=== PATIENT | female | born 2000 | race Hispanic/Latino ===

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

== ENCOUNTER 2020-03-12 01:45 | Emergency (ER) | payer OTHER, SELFPAY ==
--- OUTSIDE RECORDS SUMMARY | 2020-03-12 01:47 | XMS REPORT | Continuity of Care Document ---
:2000 Author Organization [facility] t Address [address] [place] [address] [address] [place] [address] Care Team Providers Name Role Phone Crow Hollins MD Attending Clinician Gabriela GOMEZ, A Attending Clinician Unavailable George Whitney Attending Clinician Lesley RN Attending Clinician Unavailable Ultrasound Attending Clinician Unavailable 1, Lab Attending Clinician Unavailable Neil PATHAK Attending Clinician Doctor Unassigned, Name Attending Clinician Unavailable Crow Hollins MD Admitting Clinician Problems This patient has no known problems. Allergies, Adverse Reactions, Alerts This patient has no known allergies or adverse reactions. Medications This patient has no known medications. Procedures This patient has no known procedures. Encounters Start End Encounter Admission Attending Care Care Encounter Source Date/Time Date/Time Type Type Clinicians Facility Department ID 2019-11-05 2019-11-05 Patient Kristi Hollins [facility] [id number] 00:00:00 00:00:00 Secure Msg Crow Bejarano [id number] [place] [id number] Professio [id number] [address] 2019-02-18 2019-02-18 Routine Kristi Hollins [facility] [id number] 13:05:35 13:56:52 Crow Bejarano [id number] Visit [place] [id number] Professio [id number] [address] 2019-01-25 2019-01-25 Patient FAVIO Ochoa [id number] 00:00:00 00:00:00 Secure Msg Mindy Bejarano [id number] [place] [id number] Professio [phone] [address] 2019-01-23 2019-01-23 Emergency Ty [facility] [id number] 20:01:44 21:16:00 Rinkusandra Bejarano [id number] [place] [id number] [place] [id number] 2019-01-23 2019-01-23 Nurse SOLO Sutton [id number] 00:00:00 00:00:00 Triage Jackie HARVEY [id number] [id number] 2019-01-19 2019-01-21 Hospital HollinsKristi [facility] [id number] 14:51:41 12:50:00 Encounter Cam Carlee [id number] [place] [id number] [place] [id number] [facility] 2019-01-21 2019-01-21 Patient Gabriela [facility] [id number] 00:00:00 00:00:00 Secure Msg Mindy Vazquez [place] [id number] [place] [id number] Professio [id number] [address] 2019-01-14 2019-01-14 Routine Kristi Hollins [facility] [id number] 11:18:36 12:23:47 Cam Carlee [id number] Visit [place] [id number] Professio [id number] [address] 2019-01-06 2019-01-06 Station Tender Ultrasound, [facility] [id number] 15:28:11 15:54:20 Visit Ang-Mfm [employer]ISS[employer] INVESTIGATOR [id number] [facility] [id number] MATERNAL [id number] & CHILD [address] [place] [address] 2019-01-04 2019-01-04 Station Tender 1, Adc Lab [facility] [id number] 12:12:21 12:27:21 Visit Carlee [id number] [place] [id number] [place] [id number] [id number] 2019-01-04 2019-01-04 Routine Neil [facility] [id number] 11:01:16 11:46:36 Kathleen Bejarano [id number] Visit [place] [id number] [facility] [id number] [address] 2019-01-04 2019-01-04 Orders Doctor SOLO [id number] 00:00:00 00:00:00 Only Unassigned, CANDICE [id number] [place] [facility] [id number] Results This patient has no known results.
[2020-03-12 02:47] LABS: Urine Blood NEGATIVE (NEG); Urine Glucose NEGATIVE (NEG); Urine Protein NEGATIVE (NEG); Urine Specific Gravity >1.030 (1.005-1.030); Urine pH 6.5 (5.0-7.0)
[2020-03-12 02:48] LABS: Absolute Lymphocytes (CBC) 1.2 K/uL (0.7-4.9); Basophils % 0.5 % (0-1.3); Hematocrit 34.9 % (36.0-45.0); MPV 8.2 fL (7.6-11.3); RBC Red Blood Cell Count 4.23 M/uL (3.86-4.86)
[2020-03-12 03:09] LABS: ALT/SGPT 55 U/L (12-78); AST/SGOT 23 U/L (15-37); Albumin 3.6 g/dL (3.4-5.0); Alkaline Phosphatase 74 U/L (45-117); BUN Blood Urea Nitrogen 11 mg/dL (7-18); Bicarbonate 23 mmol/L (21-32); Bilirubin Direct < 0.1 mg/dL (0-0.2); Bilirubin Total 0.2 mg/dL (0.2-1.0); Glucose Level 101 mg/dL (74-106); Lipase 315 U/L (73-393); Potassium 3.6 mmol/L (3.5-5.1); Protein, Total 7.1 g/dL (6.4-8.2); Sodium Level 138 mmol/L (136-145)
--- NOTE | 2020-03-12 04:25 | ER ---
Nurse's Notes [facility] Name: Mari Hernandez Age: 19 yrs Sex: Female : 2000 Arrival Date: 03/12/2020 Time: 01:51 Bed 20 Private MD: Diagnosis: Abdominal tenderness; state Presentation: 03/12 02:06 Chief complaint: Patient states: she is having right upper quad pain x 4 days and has bb vomited x 3 denies diarrhea, last menstrual cycle was in January pt has not taken a test. Coronavirus screen: At this time, the client does not indicate any symptoms associated with coronavirus-19. Ebola Screen: No symptoms or risks identified at this time. Initial Sepsis Screen: Does the patient meet any 2 criteria? No. Patient's initial sepsis screen is negative. Does the patient have a suspected source of infection? No. Patient's initial sepsis screen is negative. Risk Assessment: Do you want to hurt yourself or someone else? Patient reports no desire to harm self or others. Onset of symptoms was March 08, 2020. 02:06 Method Of Arrival: Ambulatory bb 02:06 Acuity: CHINEDU 3 bb Triage Assessment: 02:09 General: Appears in no apparent distress. uncomfortable, Behavior is calm, cooperative. bb Pain: Complains of pain in right upper quadrant Pain currently is 3 out of 10 on a pain scale. at worst was 10 out of 10 on a pain scale. Pain began 4 days ago. Neuro: Level of Consciousness is awake, alert, obeys commands, Oriented to person, place, time, situation. Cardiovascular: Heart tones present Capillary refill < 3 seconds Patient's skin is warm and dry. Respiratory: Airway is patent Respiratory effort is even, unlabored, Respiratory pattern is regular. GI: Abdomen is round Bowel sounds present X 4 quads. Abd is soft X 4 quads Abdomen is tender to palpation in right upper quadrant. Derm: Skin is pink, warm \T\ dry. Musculoskeletal: Circulation, motion, and sensation intact. 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 - Social history:: Smoking status: Patient denies any tobacco usage or history of. Patient/guardian denies using alcohol, street drugs. Screenin:12 Abuse screen: Denies threats or abuse. Nutritional screening: No deficits noted. bb Tuberculosis screening: No symptoms or risk factors identified. Fall Risk None identified. Assessment: 02:12 Reassessment: No changes from previously documented assessment. see triage assessment. bb 03:15 Reassessment: Patient is alert, oriented x 3, equal unlabored respirations, skin bb warm/dry/pink. Patient states feeling better. 04:37 Reassessment: Patient is alert, oriented x 3, equal unlabored respirations, skin bb warm/dry/pink. pt verbalized understanding of and agrees to plan of care discharge instructions given pt ambulated with steady gait to exit Patient states feeling better. Vital Signs: 02:06 BP 118 / 70; Pulse 102; Resp 14 S; Temp 98.4(O); Pulse Ox 100% on R/A; Weight 62.6 kg bb (R); Height 5 ft. 2 in. (157.48 cm) (R); Pain 3/10; 04:38 BP 109 / 72; Pulse 98; Resp 14 S; Temp 98.6(O); Pulse Ox 100% on R/A; Pain 0/10; bb 02:06 Body Mass Index 25.24 (62.60 kg, 157.48 cm) ED Course: 01:51 Patient arrived in ED. ag3 01:55 Ramirez Enriquez MD is Attending Physician. tw4 02:06 Yi Ceballos, RN is Primary Nurse. bb 02:08 Triage completed. bb 02:09 Arm band placed on Patient placed in an exam room, on a stretcher, on pulse oximetry. bb 02:12 Patient has correct armband on for positive identification. Placed in gown. Bed in low bb position. Call light in reach. Side rails up X 1. Pulse ox on. NIBP on. Warm blanket given. 04:24 Ramirez Enriquez MD is Referral Physician. tw4 04:38 No provider procedures requiring assistance completed. IV discontinued, intact, bb bleeding controlled, No redness/swelling at site. Pressure dressing applied. Administered Medications: No medications were administered Outcome: 04:24 Discharge ordered by MD. tw4 04:38 Discharged to home ambulatory. sapphire 04:38 Condition: stable 04:38 Discharge instructions given to patient, Instructed on discharge instructions, follow up and referral plans. Demonstrated understanding of instructions, follow-up care. 04:39 Patient left the ED. bb Signatures: Yi Ceballos RN RN Ramirez Sena MD MD tw4 Carmel Monahan ag3
--- NOTE | 2020-03-12 04:25 | EDPHYS ---
Physician Documentation [facility] Name: Mari Hernandez Age: 19 yrs Sex: Female : 2000 Arrival Date: 03/12/2020 Time: 01:51 Bed 20 Private MD: ED Physician Ramirez Enriquez HPI: 03/12 02:22 This 19 yrs old Female presents to ER via Ambulatory with complaints of tw4 Abdominal Pain. 02:22 The patient presents with abdominal pain. Onset: The symptoms/episode began/occurred 4 tw4 day(s) ago. The symptoms do not radiate. Associated signs and symptoms: none. The symptoms are described as sharp. Modifying factors: The symptoms are alleviated by nothing, the symptoms are aggravated by nothing. Severity of pain: At its worst the pain was moderate in the emergency department the pain is unchanged. The patient has not experienced similar symptoms in the past. 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 - Social history:: Smoking status: Patient denies any tobacco usage or history of. Patient/guardian denies using alcohol, street drugs. ROS: 02:22 Constitutional: Negative for fever, chills, and weight loss, Eyes: Negative for injury, tw4 pain, redness, and discharge, Cardiovascular: Negative for chest pain, palpitations, and edema, Respiratory: Negative for shortness of breath, cough, wheezing, and pleuritic chest pain, Back: Negative for injury and pain, MS/Extremity: Negative for injury and deformity, Skin: Negative for injury, rash, and discoloration, Neuro: Negative for headache, weakness, numbness, tingling, and seizure. 02:22 Abdomen/GI: Positive for abdominal pain, Negative for nausea and vomiting, nausea, vomiting, and diarrhea, nausea, vomiting, abdominal cramps, anorexia, dysphagia, hematemesis, black/tarry stool, rectal pain, rectal bleeding. Exam: 02:22 Constitutional: This is a well developed, well nourished patient who is awake, alert, tw4 and in no acute distress. Head/Face: Normocephalic, atraumatic. Chest/axilla: Normal chest wall appearance and motion. Nontender with no deformity. No lesions are appreciated. Cardiovascular: Regular rate and rhythm with a normal S1 and S2. No gallops, murmurs, or rubs. Normal PMI, no JVD. No pulse deficits. Respiratory: Lungs have equal breath sounds bilaterally, clear to auscultation and percussion. No rales, rhonchi or wheezes noted. No increased work of breathing, no retractions or nasal flaring. Back: No spinal tenderness. No costovertebral tenderness. Full range of motion. Skin: Warm, dry with normal turgor. Normal color with no rashes, no lesions, and no evidence of cellulitis. MS/ Extremity: Pulses equal, no cyanosis. Neurovascular intact. Full, normal range of motion. Neuro: Awake and alert, GCS 15, oriented to person, place, time, and situation. Cranial nerves II-XII grossly intact. Motor strength 5/5 in all extremities. Sensory grossly intact. Cerebellar exam normal. Normal gait. 02:22 Abdomen/GI: Inspection: abdomen appears normal, Bowel sounds: normal, Palpation: moderate abdominal tenderness, in the right upper quadrant. Vital Signs: 02:06 BP 118 / 70; Pulse 102; Resp 14 S; Temp 98.4(O); Pulse Ox 100% on R/A; Weight 62.6 kg bb (R); Height 5 ft. 2 in. (157.48 cm) (R); Pain 3/10; 04:38 BP 109 / 72; Pulse 98; Resp 14 S; Temp 98.6(O); Pulse Ox 100% on R/A; Pain 0/10; bb 02:06 Body Mass Index 25.24 (62.60 kg, 157.48 cm) bb MDM: 01:56 Patient medically screened. tw4 04:29 Data reviewed: vital signs, nurses notes. Counseling: I had a detailed discussion with tw4 the patient and/or guardian regarding: the historical points, exam findings, and any diagnostic results supporting the discharge/admit diagnosis, lab results. Special discussion: Based on the patient's Hx, exam, and Dx evaluation, there is no indication for emergent surgery or inpatient Tx. It is understood by the patient/guardian that if the Sx's persist or worsen they need to return immediately for re-evaluation. I discussed with the patient/guardian in detail that at this point there is no indication for admission to the hospital. It is understood, however, that if the symptoms persist or worsen the patient needs to return immediately for re-evaluation. 03/12 01:55 Order name: Basic Metabolic Panel; Complete Time: 03:35 03/12 03:35 Interpretation: Normal except: CL 108; CA 8.0. 03/12 01:55 Order name: CBC with Diff; Complete Time: 03:35 03/12 03:35 Interpretation: Normal except: WBC 13.6; HGB 11.5; HCT 34.9; MCV 82.6; BRITTNEY% 86.3; RDW tw4 15.5; LYM% 9.0; NEUT A 11.8. 03/12 01:55 Order name: Hepatic Function; Complete Time: 03:35 03/12 03:35 Interpretation: Normal except: A/G 1.0. 03/12 01:55 Order name: Lipase; Complete Time: 03:35 03/12 03:36 Interpretation: Within normal limits: LIP 315. 03/12 02:43 Order name: Urine Dipstick--Ancillary (enter results); Complete Time: 03:35 03/12 03:36 Interpretation: Normal except: UKET 1+. 03/12 02:43 Order name: Urine --Ancillary (enter results); Complete Time: 03:35 03/12 03:36 Interpretation: Normal except: URINE PREG POS; USPGR >1.030. 03/12 01:55 Order name: IV Saline Lock; Complete Time: 02:41 03/12 01:55 Order name: Labs collected and sent; Complete Time: 02:41 03/12 01:55 Order name: Urine Dipstick-Ancillary (obtain specimen); Complete Time: 02:41 03/12 01:56 Order name: Urine Test (obtain specimen); Complete Time: 02:42 4 Administered Medications: No medications were administered Disposition: 03/12/20 04:24 Discharged to Home. Impression: Abdominal tenderness, state. - Condition is Stable. - Discharge Instructions: Abdominal Pain During , Abdominal Pain, Adult, [id number]. - Medication Reconciliation Form, Thank You Letter, Antibiotic Education, Prescription Opioid Use form. - Follow up: Private Physician; When: Upon discharge from the Emergency Department; Reason: Recheck today's complaints, Continuance of care, Re-evaluation by your physician. Follow up: Ramirez Enriquez MD; When: Upon discharge from the Emergency Department; Reason: Recheck today's complaints, Continuance of care, Re-evaluation by your physician. - Problem is new. - Symptoms have improved. Signatures: Dispatcher [employer] EDOK Yi Ceballos RN RN bb Ramirez Enriquez MD MD tw4 Corrections: (The following items were deleted from the chart) 04:39 04:24 03/12/2020 04:24 Discharged to Home. Impression: Abdominal tenderness; bb state. Condition is Stable. Forms are Medication Reconciliation Form, Thank You Letter, Antibiotic Education, Prescription Opioid Use. Follow up: Private Physician; When: Upon discharge from the Emergency Department; Reason: Recheck today's complaints, Continuance of care, Re-evaluation by your physician. Follow up: Ramirez Enriquez; When: Upon discharge from the Emergency Department; Reason: Recheck today's complaints, Continuance of care, Re-evaluation by your physician. Problem is new. Symptoms have improved. tw4
[2020-03-12 05:18] VITALS: O2SAT 100
[2020-03-12 05:30] VITALS: BP 109/72; TEMP 98.6
== END 2020-03-12 04:39 | disposition home or self-care (01) ==
LOC: ER 01:45
DX: O26.891 Other specified pregnancy related conditions, first trimester (principal); Z3A.00 Weeks of gestation of pregnancy not specified
CPT/HCPCS: 36415; 80048; 80076; 81003; 81025; 83690; 85025; 99283

== ENCOUNTER 2021-05-21 09:01 | Inpatient (IN) | payer BC ==
[2021-05-18 11:32] LABS: Absolute Lymphocytes (CBC) 1.5 K/uL (0.7-4.9); Basophils % 0.4 % (0-1.3); Hematocrit 35.4 % (36.0-45.0); Lymphocytes % 32.3 % (15.3-44.8); MPV 7.5 fL (7.6-11.3); RBC Red Blood Cell Count 4.31 M/uL (3.86-4.86)
[2021-05-18 11:50] LABS: ALT/SGPT 25 U/L (12-78); AST/SGOT 15 U/L (15-37); Albumin 3.5 g/dL (3.4-5.0); Alkaline Phosphatase 71 U/L (45-117); Amylase 97 U/L (25-115); BUN Blood Urea Nitrogen 10 mg/dL (7-18); Bicarbonate 26 mmol/L (21-32); Bilirubin Direct 0.1 mg/dL (0-0.2); Bilirubin Total 0.3 mg/dL (0.2-1.0); Glucose Level 86 mg/dL (74-106); Lipase 741 U/L (73-393); Potassium 3.9 mmol/L (3.5-5.1); Protein, Total 6.8 g/dL (6.4-8.2); Sodium Level 142 mmol/L (136-145)
[2021-05-21] MEDS ORDERED: Ringers Lactate 1,000 ML IV ONE (09:28)
[2021-05-21] MEDS ORDERED: ROCURONIUM 50 MG/5 ML VIAL IV ONE (09:29)
[2021-05-21] MEDS ORDERED: GLYCOPYRROLATE 0.2 MG/ML SYR ONE (09:29)
[2021-05-21] MEDS ORDERED: propofoL 200 MG/20 ML VIAL IV ONE (09:29)
[2021-05-21] MEDS ORDERED: FENTANYL CITR 250 MCG/5 ML ONE (09:30)
[2021-05-21] MEDS ORDERED: MIDAZOLAM HCL 2 MG/2 ML INJ ONE (09:30)
[2021-05-21] MEDS ORDERED: LIDOCAINE 2% MPF 5 ML VIAL ONE (09:30)
[2021-05-21] MEDS ORDERED: ONDANSETRON 4 MG/2 ML VIAL ONE (09:32)
[2021-05-21 09:38] LABS: Specific Gravity 1.025 (1.005-1.030)
[2021-05-21] MEDS ORDERED: CEFOXITIN SODIUM 1 GM/VIAL IVPB SCH (12:00)
--- OUTSIDE RECORDS SUMMARY | 2021-05-21 12:27 | XMS REPORT | Continuity of Care Document ---
:2000 Author Organization [facility] t Address [facility] [address] Beal [address] [place] [id number] Care Team Providers Name Role Phone Silvana Tapia MD Primary Care Physician KENNEDY Attending Clinician Unavailable Kennedy PATHAK Attending Clinician Silvana Tapia MD Attending Clinician Doctor Unassigned, Name Attending Clinician Unavailable Nurse, Women's Health Attending Clinician Unavailable Kaila Butt CRNA Attending Clinician Nathalie Cronin MD Attending Clinician Only, Test Attending Clinician Unavailable SILVANA TAPIA Attending Clinician Unavailable 2, Lab Attending Clinician Unavailable Ultrasound, Mfm Attending Clinician Unavailable Edwin LAWS F Attending Clinician Gabriela GOMEZ, A Attending Clinician Unavailable George Whitney Attending Clinician Lesley GOMEZ Attending Clinician Unavailable Ultrasound Attending Clinician Unavailable Adonis Glasgow Attending Clinician 1, Lab Attending Clinician Unavailable SILVANA TAPIA Admitting Clinician Unavailable Silvana Tapia MD Admitting Clinician Payers Payer Name Policy Type Policy Number Effective Date Expiration Date S bianca BCBS [facility] [id number] 2020 00:00:00 [place] [facility] [id number] 2020 HEALTH 00:00:00 MEDICAID [facility] [id number] 2020 00:00:00 Problems Condition Condition Condition Status Onset Resolution Last Treating Co mments Source Name Details Category Date Date Treatment Clinician Date History of History of Disease Active U nivers COVID-19 COVID-19 6-01 ity of 00:00: [place] [facility] 39 weeks 39 weeks Disease Active Unive rs gestation gestation 6-01 ity of of of 00:00: [place] [facility] Positive Positive Disease Active Unive rs GBS test GBS test 6- ity of 00:00: [address] Anemia, Anemia, Disease Active Univers antepartum antepartum 6- it y of , third , third 00:00: [place] trimester trimester 00 [facility] Obesity Obesity Disease Active Univers (BMI (BMI 4-08 ity of 30-39.9) 30-39.9) 00:00: [address] Supervisio Supervisio Disease Active 2019-06 U nivers n of high n of high 2-16 ity of risk risk 00:00: [place] 00 [facility] in third in third [place] trimester trimester Acute Acute Disease Active Univers urinary urinary 8-22 [place] of [place] [address] [place] [address] Liveborn Liveborn Disease Active Unive rs infant, of , of 8-21 it y of [place] 00:[place] , , 00 Me dical born in born in [facility] hospital by vaginal by vaginal delivery delivery 39 weeks 39 weeks Disease Active Unive rs gestation gestation 8-19 ity of of of 00:00: [place] [address] [place] [address] Encounter Encounter Disease Active Uni vers for for 8-19 ity of planned planned 00:00: [place] induction induction [address] [place] [address] of labor of labor Branch Maternal Maternal Disease Active Unive rs varicella, varicella, 2-25 it y of non-immune non-immune [place] [facility] Seizure Seizure Disease Active Univers disorder disorder 3-29 ity of 00:00: [place] [facility] Threatened Threatened Disease Active U nivers 3-29 ity of 00:00: [address] Unsure of Unsure of Disease Active Uni vers LMP (last LMP (last 3-29 ity of menstrual menstrual 00:00[place] period) as period) as 00 Me dical reason for reason for Br anch ultrasound ultrasound scan scan Allergies, Adverse Reactions, Alerts Allergy Allergy Status Severity Reaction(s) Onset Inactive Treating Comm ents Source Name Type Date Date Clinician NO KNOWN Drug Active Univers ALLERGIE Class ity of S [facility] Social History Social Habit Start Date Stop Date Quantity Comments Source ASSERTION 2020-02-15 [facility] 00:00:00 [facility] Branch Exposure to Not sure [facility]-CoV-2 [facility] (event) Branch Tobacco use and 2020-12-28 2020-12-28 Never used Universit y of exposure 00:00:00 00:00:00 [facility] Alcohol intake 2020-12-28 2020-12-28 Current [facility] 00:00:00 00:00:00 non-drinker of [facility] alcohol Branch (finding) History [facility] 2019-01-19 2019-01-19 5 University o f Financial 00:00:00 00:00:00 [place] [facility] History [facility] Food 2019-01-19 2019-01-19 1 Univers ity of Worry 00:00:00 00:00:00 [place] [facility] History [facility] Food 2019-01-19 2019-01-19 1 Univers ity of Scarcity 00:00:00 00:00:00 [place] [facility] History [facility] 2019-01-19 2019-01-19 1 University o f Transport Med 00:00:00 00:00:00 [place] Medic al Branch History [facility] 2019-01-19 2019-01-19 2 University o f Transport Non-Med 00:00:00 00:00:00 [place] [facility] edical Branch Sex Assigned At [birth year] Universit y of 00:00:00 00:00:00 [facility] Branch Smoking Status Start Date Stop Date Source Never smoker [facility] Medications Ordered Filled Start Stop Current Ordering Indication Dosage Frequency Signature Comments Components Source Medication Medication Date Date Medication? Clinician (SIG) Name Name medroxyPROG 2020- No [id number] 150mg Univers ESTERone 11-30 ity of (DEPO-PROVE 17:45: 17:00 [place] RA) syringe 00 :00 Medical 150 mg Branch medroxyPROG 2020- No [id number] 150mg 150 mg, Univers ESTERone 11-30 Intramuscu ity of (DEPO-PROVE 17:45: 17:00 lar, ONCE, [place] RA) syringe 00 :00 1 dose, Medic al 150 mg Shreya 11/30/20 Branch at 1245, Routine rho(D) 2020-0 Yes 300ug 300 mcg, Univer s immune 11-01 Intramuscu ity of globulin 00:02: lar, ONCE, [place] as (RHOGAM) 48 For 1 Medical syringe 300 dose, Branch mcg Conditiona l, Routine witch Winsome 0 Yes Topical, Un ghislaine (TUCKS) 50 6-02 Q4HPRN, ity of % topical 00:02: Starting [place] pad 43 e 10/31/20 Medical at 1902, Branch Until Discontinu ed, Routine, rectal/hem orrhoidal pain simethicone 0 Yes 160mg 160 mg, Un ghislaine (GAS RELIEF 11-01 Oral, ity of (SIMETHICON 00:02: PC+HSPRN, [place] E)) 43 Starting Medical chewable e 10/31/20 Branc h tablet 160 at 1902, mg Until Discontinu ed, Routine, Gas HYDROcodone 2020-0 Yes 1{tbl} 1 tablet, Univers -acetaminop 11-01 Oral, ity of hen (NORCO 00:02: Q6HPRN, [place] 5) 5-325 mg 42 Starting Medi demarcus tablet 1 Fri10/31/20 Branc h tablet at 1902, Until Discontinu ed, Routine, Pain (scale 7-10) ibuprofen 2020-0 Yes 600mg 600 mg, [facility] ers (IBU) 11-01 Oral, ity of tablet 600 00:02: Q6HPRN, [place] mg 42 Starting Medical 10/31/20 Branch at 1902, Until Discontinu ed, Routine, Pain (scale 4-6) acetaminoph 0 Yes 650mg 650 mg, Un ghislaine en 11-01 Oral, ity of (TYLENOL) 00:02: Q6HPRN, [place] tablet 650 42 Starting Medic al mg e 10/31/20 Branch at 1902, Until Discontinu ed, Routine, Pain (scale 1-3) diphenhydrA 0 Yes 25mg 25 mg, Univ ers MINE 6-02 Oral, ity of (BENADRYL) 00:02: Q6HPRN, [place] tablet 25 42 Starting Medica l mg Fri10/31/20 Branch at 1902, Until Discontinu ed, Routine, Sleep, Itching ondansetron Yes 4mg 4 mg, Slow Univers (ZOFRAN 6 IV Push, ity of (PF)) 00:02: Q8HPRN, [place] injection 4 42 Starting Medi demarcus mg Fri10/31/20 Branch at 1902, Until Discontinu ed, Routine, Nausea and Vomiting (N/V) magnesium Yes 30mL 30 mL, Univer s hydroxide 11-01 Oral, ity of (MILK OF 00:02: QDAILYPRN, [place] MAGNESIA) 42 Starting Medica l 400 mg/5 mL Fri10/31/20 Br anch suspension at 1901, 30 mL Until Discontinu ed, Routine, Constipati on benzocaine- Yes Topical, Un ghislaine menthol 11-01 PRN, ity of (DERMOPLAST 00:02: [place] 20-0.5 % 42 Fri10/31/20 Med ical topical at 1901, Branch spray Until Discontinu ed, Routine, Perineum discomfort Yes [id number] 1{tbl} Take 1 Univers vitamin 6-02 102 tablet by ity of w/FA tablet 00:00: mouth [place] 00 daily. Medical Branch docusate Yes [id number] 240mg Take 1 Univers calcium 240 6-02 102 capsule by it y of mg capsule 00:00: mouth [place] 00 daily as Medical needed for Branch Constipati on. ferrous Yes [id number] 325mg Take 1 Univers sulfate 325 6-02 102 tablet by ity of mg (65 mg 00:00: mouth 2 [place] iron) 00 (two) Medical tablet times Branch daily. ibuprofen Yes [id number] 600mg Take 1 Univers 600 mg 6-02 102 tablet by ity of tablet 00:00: mouth [place] 00 every 6 Medical (six) Branch hours as needed (Pain). Take with food or milk. Yes [id number] 1{tbl} Take 1 Univers vitamin 6-02 102 tablet by ity of w/FA tablet 00:00: mouth [place] 00 daily. Medical Branch docusate Yes [id number] 240mg Take 1 Univers calcium 240 6-02 102 capsule by it y of mg capsule 00:00: mouth [place] 00 daily as Medical needed for Branch Constipati on. ferrous Yes [id number] 325mg Take 1 Univers sulfate 325 6-02 102 tablet by ity of mg (65 mg 00:00: mouth 2 [place] iron) 00 (two) Medical tablet times Branch daily. ibuprofen Yes [id number] 600mg Take 1 Univers 600 mg 6-02 102 tablet by ity of tablet 00:00: mouth [place] 00 every 6 Medical (six) Branch hours as needed (Pain). Take with food or milk. Yes [id number] 1{tbl} Take 1 Univers vitamin 6-02 102 tablet by ity of w/FA tablet 00:00: mouth [place] 00 daily. Medical Branch docusate Yes [id number] 240mg Take 1 Univers calcium 240 6-02 102 capsule by it y of mg capsule 00:00: mouth once [place] 00 daily as Medical needed for Branch Constipati on. ferrous Yes [id number] 325mg Take 1 Univers sulfate 325 6-02 102 tablet by ity of mg (65 mg 00:00: mouth 2 [place] iron) 00 (two) Medical tablet times Branch daily. ibuprofen Yes [id number] 600mg Take 1 Univers 600 mg 6-02 102 tablet by ity of tablet 00:00: mouth [place] 00 every 6 Medical (six) Branch hours as needed (Pain). Take with food or milk. Yes [id number] 1{tbl} Take 1 Univers vitamin 6-02 102 tablet by ity of w/FA tablet 00:00: mouth [place] 00 daily. Medical Branch docusate Yes [id number] 240mg Take 1 Univers calcium 240 6-02 102 capsule by it y of mg capsule 00:00: mouth [place] 00 daily as Medical needed for Branch Constipati on. ferrous Yes [id number] 325mg Take 1 Univers sulfate 325 6-02 102 tablet by ity of mg (65 mg 00:00: mouth 2 [place] iron) 00 (two) Medical tablet times Branch daily. ibuprofen Yes [id number] 600mg Take 1 Univers 600 mg 6-02 102 tablet by ity of tablet 00:00: mouth [place] 00 every 6 Medical (six) Branch hours as needed (Pain). Take with food or milk. Yes [id number] 1{tbl} Take 1 Univers vitamin 6-02 102 tablet by ity of w/FA tablet 00:00: mouth [place] 00 daily. Medical Branch docusate Yes [id number] 240mg Take 1 Univers calcium 240 6-02 102 capsule by it y of mg capsule 00:00: mouth [place] 00 daily as Medical needed for Branch Constipati on. ferrous Yes [id number] 325mg Take 1 Univers sulfate 325 6-02 102 tablet by ity of mg (65 mg 00:00: mouth 2 [place] iron) 00 (two) Medical tablet times Branch daily. ibuprofen Yes [id number] 600mg Take 1 Univers 600 mg 6-02 102 tablet by ity of tablet 00:00: mouth [place] 00 every 6 Medical (six) Branch hours as needed (Pain). Take with food or milk. Yes [id number] 1{tbl} Take 1 Univers vitamin 6-02 102 tablet by ity of w/FA tablet 00:00: mouth [place] 00 daily. Medical Branch docusate Yes [id number] 240mg Take 1 Univers calcium 240 6-02 102 capsule by it y of mg capsule 00:00: mouth once [place] 00 daily as Medical needed for Branch Constipati on. ferrous Yes [id number] 325mg Take 1 Univers sulfate 325 6-02 102 tablet by ity of mg (65 mg 00:00: mouth 2 [place] iron) 00 (two) Medical tablet times Branch daily. ibuprofen Yes [id number] 600mg Take 1 Univers 600 mg 6-02 102 tablet by ity of tablet 00:00: mouth [place] 00 every 6 Medical (six) Branch hours as needed (Pain). Take with food or milk. Yes [id number] 1{tbl} Take 1 Univers vitamin 6-02 102 tablet by ity of w/FA tablet 00:00: mouth [place] 00 daily. Medical Branch docusate Yes [id number] 240mg Take 1 Univers calcium 240 6-02 102 capsule by it y of mg capsule 00:00: mouth once [place] 00 daily as Medical needed for Branch Constipati on. ferrous Yes [id number] 325mg Take 1 Univers sulfate 325 6-02 102 tablet by ity of mg (65 mg 00:00: mouth 2 [place] iron) 00 (two) Medical tablet times Branch daily. ibuprofen Yes [id number] 600mg Take 1 Univers 600 mg 6-02 102 tablet by ity of tablet 00:00: mouth [place] 00 every 6 Medical (six) Branch hours as needed (Pain). Take with food or milk. Yes [id number] 1{tbl} Take 1 Univers vitamin 6-02 102 tablet by ity of w/FA tablet 00:00: mouth [place] 00 daily. Medical Branch docusate Yes [id number] 240mg Take 1 Univers calcium 240 6-02 102 capsule by it y of mg capsule 00:00: mouth once [place] 00 daily as Medical needed for Branch Constipati on. ferrous Yes [id number] 325mg Take 1 Univers sulfate 325 6-02 102 tablet by ity of mg (65 mg 00:00: mouth 2 [place] iron) 00 (two) Medical tablet times Branch daily. ibuprofen Yes [id number] 600mg Take 1 Univers 600 mg 6-02 102 tablet by ity of tablet 00:00: mouth [place] 00 every 6 Medical (six) Branch hours as needed (Pain). Take with food or milk. Yes [id number] 1{tbl} Take 1 Univers vitamin 6-02 102 tablet by ity of w/FA tablet 00:00: mouth [place] 00 daily. Medical Branch docusate Yes [id number] 240mg Take 1 Univers calcium 240 6-02 102 capsule by it y of mg capsule 00:00: mouth once [place] 00 daily as Medical needed for Branch Constipati on. ferrous Yes [id number] 325mg Take 1 Univers sulfate 325 6-02 102 tablet by ity of mg (65 mg 00:00: mouth 2 [place] iron) 00 (two) Medical tablet times Branch daily. ibuprofen Yes [id number] 600mg Take 1 Univers 600 mg 6-02 102 tablet by ity of tablet 00:00: mouth [place] 00 every 6 Medical (six) Branch hours as needed (Pain). Take with food or milk. Yes [id number] 1{tbl} Take 1 Univers vitamin 6-02 102 tablet by ity of w/FA tablet 00:00: mouth [place] 00 daily. Medical Branch docusate Yes [id number] 240mg Take 1 Univers calcium 240 6-02 102 capsule by it y of mg capsule 00:00: mouth once [place] 00 daily as Medical needed for Branch Constipati on. ferrous Yes [id number] 325mg Take 1 Univers sulfate 325 6-02 102 tablet by ity of mg (65 mg 00:00: mouth 2 [place] iron) 00 (two) Medical tablet times Branch daily. ibuprofen Yes [id number] 600mg Take 1 Univers 600 mg 6-02 102 tablet by ity of tablet 00:00: mouth [place] 00 every 6 Medical (six) Branch hours as needed (Pain). Take with food or milk. FENTanyl 2 2020- No Intra-op Un ghislaine mcg/mL + 10-31 ity of bupivacaine 19:33: 21:50 [place] 0.125% in 00 :19 Medical NS 250 mL Branch epidural bag FENTanyl 2 2020- No Intra-op Un ghislaine mcg/mL + 10-31 ity of bupivacaine 19:33: 21:50 [place] 0.125% in 00 :19 Medical NS 250 mL Branch epidural bag lidocaine-e 2020- No Intraderma Univers pinephrine 10-31 l, ONCE ity o f (XYLOCAINE 19:30: 21:50 INTRA [place] W/EPINEPHRI 00 :19 PROCEDURE, Ct dical NE) 1.5 Starting Branch %-1:200,000 10/31/20 injection at 1430, Until 10/31/20 at 1650, Routine, Intra-op D5W-LR IV 2020- No 1000mL at 125 Uni vers infusion 10-31 mL/hr, IV ity o f 1,000 mL 09:45: 00:02 Infusion, [place] as 00 :48 CONTINUOUS Medical , Starting Branch 10/31/20 at 0445, Until 10/31/20 at 1902, Routine FENTanyl PF 2020- No 100ug 100 mcg, Univers (SUBLIMAZE 10-31 Slow IV ity o f (PF)) 09:41: 00:02 Push, [place] injection 25 :48 Q1HPRN, Medical 100 mcg Starting Branch 10/31/20 at 0441, Until 10/31/20 at 1902, Routine, contractio n pain without an epidural and SVE < 8 cm and Cat I strip LR 1000 mL 2020- No 2mU/min 2-40 Uni vers + oxytocin 10-31 ruben-unit it y of 20 units IV 09:41: 00:02 s/min [place] Solution 25 :48 (6-120 Medical mL/hr), IV Branch Infusion, TITRATE, Oxytocin Induction / Augmentati on of Labor, Starting e 10/31/20 at 0441
In fuse IV through a controlled infusion pump at a proximal port on the peripheral IV line.&nbsp ; Sta rt at 2 ruben-unit s/min and increase by 2 ruben-unit s/min every 20 minutes according to oxytocin policy 7.11.52.&n bsp; Going over 20 ruben-unit s/min requires faculty approval.& nbsp;&nbsp ;Max 40 ruben-unit s/min.
ferrous Yes Anemia of 325mg Take 1 Un ghislaine sulfate 3-10 mother in tablet by it y of (IRON, 00:00: , mouth [place] FERROUS 00 antepartum daily. Medi demarcus SULFATE,) Branch 325 mg (65 mg iron) tablet ferrous Yes Anemia of 325mg Take 1 Un ghislaine sulfate 3-10 mother in tablet by it y of (IRON, 00:00: , mouth [place] FERROUS 00 antepartum daily. Medi demarcus SULFATE,) Branch 325 mg (65 mg iron) tablet ferrous Yes 325mg Take 1 Un ghislaine sulfate 3-10 tablet by ity of (IRON, 00:00: mouth [place] FERROUS 00 daily. Medical SULFATE,) Branch 325 mg (65 mg iron) tablet ferrous Yes [id number] 325mg Take 1 Un ghislaine sulfate 3-10 tablet by ity of (IRON, 00:00: mouth [place] FERROUS 00 daily. Medical SULFATE,) Branch 325 mg (65 mg iron) tablet ferrous Yes [id number] 325mg Take 1 Un ghislaine sulfate 3-10 tablet by ity of (IRON, 00:00: mouth [place] FERROUS 00 daily. Medical SULFATE,) Branch 325 mg (65 mg iron) tablet ferrous Yes [id number] 325mg Take 1 Un ghislaine sulfate 3-10 tablet by ity of (IRON, 00:00: mouth [place] FERROUS 00 daily. Medical SULFATE,) Branch 325 mg (65 mg iron) tablet ferrous Yes [id number] 325mg Take 1 Un ghislaine sulfate 3-10 tablet by ity of (IRON, 00:00: mouth [place] FERROUS 00 daily. Medical SULFATE,) Branch 325 mg (65 mg iron) tablet ferrous Yes [id number] 325mg Take 1 Un ghislaine sulfate 3-10 tablet by ity of (IRON, 00:00: mouth [place] FERROUS 00 daily. Medical SULFATE,) Branch 325 mg (65 mg iron) tablet ferrous Yes [id number] 325mg Take 1 Un ghislaine sulfate 3-10 tablet by ity of (IRON, 00:00: mouth [place] FERROUS 00 daily. Medical SULFATE,) Branch 325 mg (65 mg iron) tablet ferrous Yes [id number] 325mg Take 1 Un ghislaine sulfate 3-10 tablet by ity of (IRON, 00:00: mouth [place] FERROUS 00 daily. Medical SULFATE,) Branch 325 mg (65 mg iron) tablet ferrous Yes [id number] 325mg Take 1 Un ghislaine sulfate 3-10 tablet by ity of (IRON, 00:00: mouth [place] FERROUS 00 daily. Medical SULFATE,) Branch 325 mg (65 mg iron) tablet ferrous Yes [id number] 325mg Take 1 Un ghislaine sulfate 3-10 tablet by ity of (IRON, 00:00: mouth [place] FERROUS 00 daily. Medical SULFATE,) Branch 325 mg (65 mg iron) tablet ferrous Yes [id number] 325mg Take 1 Un ghislaine sulfate 3-10 tablet by ity of (IRON, 00:00: mouth [place] FERROUS 00 daily. Medical SULFATE,) Branch 325 mg (65 mg iron) tablet ferrous Yes [id number] 325mg Take 1 Un ghislaine sulfate 3-10 tablet by ity of (IRON, 00:00: mouth [place] FERROUS 00 daily. Medical SULFATE,) Branch 325 mg (65 mg iron) tablet ferrous Yes [id number] 325mg Take 1 Un ghislaine sulfate 3-10 tablet by ity of (IRON, 00:00: mouth [place] FERROUS 00 daily. Medical SULFATE,) Branch 325 mg (65 mg iron) tablet ferrous Yes [id number] 325mg Take 1 Un ghislaine sulfate 3-10 tablet by ity of (IRON, 00:00: mouth [place] FERROUS 00 daily. Medical SULFATE,) Branch 325 mg (65 mg iron) tablet ferrous 2020- No [id number] 325mg Take 1 U nivers sulfate 3-10 - tablet by ity of (IRON, 00:00: 00:00 mouth [place] FERROUS 00 :00 daily. Medical SULFATE,) Branch 325 mg (65 mg iron) tablet azithromyci 2019-06- No [id number] 1000mg Take 2 Univers n 500 mg 0-22 10-24 tablets by ity of tablet 00:00: 04:59 mouth [place] 00 :00 daily for Medical 1 day. Branch azithromyci 2019-06- No [id number] 1000mg Take 2 Univers n 500 mg 0-22 10-24 tablets by ity of tablet 00:00: 04:59 mouth [place] 00 :00 daily for Medical 1 day. Branch medroxyPROG 2018- No 150mg Univ ers ESTERone 02-18 ity of (DEPO-PROVE 22:45: 18:50 [place] RA) 00 :00 Medical injection Branch 150 mg medroxyPROG 2018- No 150mg 150 mg, U nivers ESTERone 02-18 Intramuscu ity of (DEPO-PROVE 22:45: 18:50 lar, ONCE, [place] RA) 00 :00 1 dose, Medical injection Shreya Branch 150 mg 02/18/19 at 1745, Routine cefTRIAXone 2018- No 1000mg 1,000 mg, Univers (ROCEPHIN) 01-24 08-25 Intravenou it y of injection 02:30: 01:36 s, ONCE, 1 [place] 1,000 mg 00 :00 dose, Sat Medica l 01/23/19 at Branch 2130, DONNA
Fa culty member approving Restricted medication : KM ESCALERA III George
Reaso n for Anti-Infec tive: Empiric Therapy for Suspected Infection< br>Empiric Therapy Site: Abdominal< br>Duratio n of therapy: 72 hours NaCl 0.9% 2019- No 1000mL at 999 Uni vers (NS) bolus 01-24 08-25 mL/hr, ity of infusion 02:30: 02:08 1,000 mL, Shaun as 1,000 mL 00 :00 IV Medical Infusion, Branch ONCE, 1 dose, 01/23/19 at 2130, STAT Nitrofurant 2018- No [id number] 100mg Take 1 Univers oin&Nit. 01-23 capsule by ity of Macrocryst 00:00: 04:59 mouth 2 [place] as (MACROBID) 00 :00 (two) Medical 100 mg times Branch capsule daily for 10 days. Nitrofurant 2018- No [id number] 100mg Take 1 Univers oin&Nit. 01-23 capsule by ity of Macrocryst 00:00: 04:59 mouth 2 [place] (MACROBID) 00 :00 (two) Medical 100 mg times Branch capsule daily for 10 days. ibuprofen 2019- No [id number] 600mg Take 1 Univers 600 mg 01-23-30 tablet by ity of tablet 00:00: 04:59 mouth 4 [place] 00 :00 (four) Medical times Branch daily as needed for Pain (scale 4-6) for up to 5 days. acetaminoph 2019- No [id number] 975mg Take 3 Univers en 01-23-30 tablets by ity of (TYLENOL) 00:00: 04:59 mouth 4 [place] 325 mg 00 :00 (four) Medical tablet times Branch daily for 5 days. This is the maximum safe dose for a healthy adult. ibuprofen 2019- No [id number] 600mg Take 1 Univers 600 mg 01-23-30 tablet by ity of tablet 00:00: 04:59 mouth 4 [place] 00 :00 (four) Medical times Branch daily as needed for Pain (scale 4-6) for up to 5 days. acetaminoph 2019- 2019- No [id number] 975mg Take 3 Univers en 8-24 08-30 tablets by ity of (TYLENOL) 00:00: 04:59 mouth 4 [place] 325 mg 00 :00 (four) Medical tablet times Branch daily for 5 days. This is the maximum safe dose for a healthy adult. 2019- Yes Liveborn 1{tbl} Take 1 U nivers vitamin 8-22 , of tablet by i ty of w/FA tablet 00:00: watson mouth [place] 00 , daily. Medical born in [facility] by vaginal delivery 2019-0 Yes Liveborn 1{tbl} Take 1 U nivers vitamin 8-22 infant, of tablet by i ty of w/FA tablet 00:00: watson mouth [place] 00 , daily. Medical born in [facility] by vaginal delivery 2019- Yes [id number] 1{tbl} Take 1 Univers vitamin 8-22 102 tablet by ity of w/FA tablet 00:00: mouth [place] 00 daily. Medical Branch docusate Yes [id number] 240mg Take 1 Univers calcium 240 8-22 102 capsule by it y of mg capsule 00:00: mouth once [place] 00 daily as Medical needed for Branch Constipati on. ferrous 2018- Yes [id number] 325mg Take 1 Univers sulfate 325 8-22 102 tablet by ity of mg (65 mg 00:00: mouth 2 [place] iron) 00 (two) Medical tablet times Branch daily. ibuprofen 2018- Yes [id number] 600mg Take 1 Univers 600 mg 8-22 102 tablet by ity of tablet 00:00: mouth [place] 00 every 6 Medical (six) Branch hours as needed for Pain (scale 1-3) or Pain (scale 4-6) (Pain). Take with food or milk. 2019- Yes [id number] 1{tbl} Take 1 Univers vitamin 8-22 102 tablet by ity of w/FA tablet 00:00: mouth [place] 00 daily. Medical Branch docusate Yes [id number] 240mg Take 1 Univers calcium 240 8-22 102 capsule by it y of mg capsule 00:00: mouth once [place] 00 daily as Medical needed for Branch Constipati on. ferrous 2018- Yes [id number] 325mg Take 1 Univers sulfate 325 8-22 102 tablet by ity of mg (65 mg 00:00: mouth 2 [place] iron) 00 (two) Medical tablet times Branch daily. ibuprofen 2019-0 Yes [id number] 600mg Take 1 Univers 600 mg 8-22 102 tablet by ity of tablet 00:00: mouth [place] 00 every 6 Medical (six) Branch hours as needed for Pain (scale 1-3) or Pain (scale 4-6) (Pain). Take with food or milk. Yes [id number] 1{tbl} Take 1 Univers vitamin 8-22 102 tablet by ity of w/FA tablet 00:00: mouth [place] 00 daily. Medical Branch docusate Yes [id number] 240mg Take 1 Univers calcium 240 8-22 102 capsule by it y of mg capsule 00:00: mouth once [place] 00 daily as Medical needed for Branch Constipati on. ferrous 2018- Yes [id number] 325mg Take 1 Univers sulfate 325 8-22 102 tablet by ity of mg (65 mg 00:00: mouth 2 [place] iron) 00 (two) Medical tablet times Branch daily. ibuprofen Yes [id number] 600mg Take 1 [facility] 600 mg 8-22 102 tablet by ity of tablet 00:00: mouth [place] 00 every 6 Medical (six) Branch hours as needed for Pain (scale 1-3) or Pain (scale 4-6) (Pain). Take with food or milk. Yes [id number] 1{tbl} Take 1 [facility] vitamin 8-22 102 tablet by ity of w/FA tablet 00:00: mouth [place] 00 daily. Medical Branch docusate Yes [id number] 240mg Take 1 [facility] calcium 240 8-22 102 capsule by it y of mg capsule 00:00: mouth [place] 00 daily as Medical needed for Branch Constipati on. ferrous 2019-0 Yes [id number] 325mg Take 1 [facility] sulfate 325 8-22 102 tablet by ity of mg (65 mg 00:00: mouth 2 [place] iron) 00 (two) Medical tablet times Branch daily. Yes [id number] 1{tbl} Take 1 [facility] vitamin 8-22 102 tablet by ity of w/FA tablet 00:00: mouth [place] 00 daily. Medical Branch docusate Yes [id number] 240mg Take 1 [facility] calcium 240 8-22 102 capsule by it y of mg capsule 00:00: mouth once [place] 00 daily as Medical needed for Branch Constipati on. ferrous Yes [id number] 325mg Take 1 [facility] sulfate 325 8-22 102 tablet by ity of mg (65 mg 00:00: mouth 2 [place] iron) 00 (two) Medical tablet times Branch daily. Yes [id number] 1{tbl} Take 1 [facility] vitamin 8-22 102 tablet by ity of w/FA tablet 00:00: mouth [place] 00 daily. Medical Branch docusate Yes [id number] 240mg Take 1 [facility] calcium 240 8-22 102 capsule by it y of mg capsule 00:00: mouth once [place] 00 daily as Medical needed for Branch Constipati on. ferrous Yes [id number] 325mg Take 1 [facility] sulfate 325 8-22 102 tablet by ity of mg (65 mg 00:00: mouth 2 [place] iron) 00 (two) Medical tablet times Branch daily. Yes [id number] 1{tbl} Take 1 [facility] vitamin 8-22 102 tablet by ity of w/FA tablet 00:00: mouth [place] 00 daily. Medical Branch docusate Yes [id number] 240mg Take 1 [facility] calcium 240 8-22 102 capsule by it y of mg capsule 00:00: mouth once [place] 00 daily as Medical needed for Branch Constipati on. ferrous Yes [id number] 325mg Take 1 [facility] sulfate 325 8-22 102 tablet by ity of mg (65 mg 00:00: mouth 2 [place] iron) 00 (two) Medical tablet times Branch daily. Yes [id number] 1{tbl} Take 1 [facility] vitamin 8-22 102 tablet by ity of w/FA tablet 00:00: mouth [place] 00 daily. Medical Branch docusate Yes [id number] 240mg Take 1 [facility] calcium 240 8-22 102 capsule by it y of mg capsule 00:00: mouth once [place] 00 daily as Medical needed for Branch Constipati on. ferrous Yes [id number] 325mg Take 1 [facility] sulfate 325 8-22 102 tablet by ity of mg (65 mg 00:00: mouth 2 [place] iron) 00 (two) Medical tablet times Branch daily. 2019-0 Yes [id number] 1{tbl} Take 1 [facility] vitamin 8-22 102 tablet by ity of w/FA tablet 00:00: mouth [place] 00 daily. Medical Branch 2019-0 Yes [id number] 1{tbl} Take 1 [facility] vitamin 8-22 102 tablet by ity of w/FA tablet 00:00: mouth [place] 00 daily. Medical Branch 2019-0 Yes [id number] 1{tbl} Take 1 [facility] vitamin 8-22 102 tablet by ity of w/FA tablet 00:00: mouth [place] 00 daily. Medical Branch 201[address] Yes [id number] 1{tbl} Take 1 [facility] vitamin 8-22 102 tablet by ity of w/FA tablet 00:00: mouth [place] 00 daily. Medical Branch 2019-0 Yes [id number] 1{tbl} Take 1 [facility] vitamin 8-22 102 tablet by ity of w/FA tablet 00:00: mouth [place] 00 daily. Medical Branch 2019-0 Yes [id number] 1{tbl} Take 1 [facility] vitamin 8-22 102 tablet by ity of w/FA tablet 00:00: mouth [place] 00 daily. Medical Branch 2019-0 Yes [id number] 1{tbl} Take 1 [facility] vitamin 8-22 102 tablet by ity of w/FA tablet 00:00: mouth [place] 00 daily. Medical Branch 2019-0 Yes [id number] 1{tbl} Take 1 [facility] vitamin 8-22 102 tablet by ity of w/FA tablet 00:00: mouth [place] 00 daily. Medical Branch 2019-0 Yes [id number] 1{tbl} Take 1 [facility] vitamin 8-22 102 tablet by ity of w/FA tablet 00:00: mouth [place] 00 daily. Medical Branch 2019-0 Yes [id number] 1{tbl} Take 1 [facility] vitamin 8-22 102 tablet by ity of w/FA tablet 00:00: mouth [place] 00 daily. Medical Branch 2019-0 Yes [id number] 1{tbl} Take 1 [facility] vitamin 8-22 102 tablet by ity of w/FA tablet 00:00: mouth [place] 00 daily. Medical Branch 2019-0 Yes [id number] 1{tbl} Take 1 [facility] vitamin 8-22 102 tablet by ity of w/FA tablet 00:00: mouth [place] 00 daily. Medical Branch 2019-0 Yes [id number] 1{tbl} Take 1 [facility] vitamin 8-22 102 tablet by ity of w/FA tablet 00:00: mouth [place] 00 daily. Medical Branch [address] Yes [id number] 1{tbl} Take 1 [facility] vitamin 8-22 102 tablet by ity of w/FA tablet 00:00: mouth [place] 00 daily. Medical Branch 201[address] Yes [id number] 1{tbl} Take 1 [facility] vitamin 8-22 102 tablet by ity of w/FA tablet 00:00: mouth [place] 00 daily. Medical Branch 201[address] Yes [id number] 1{tbl} Take 1 [facility] vitamin 8-22 102 tablet by ity of w/FA tablet 00:00: mouth [place] 00 daily. Medical Branch 0 Yes [id number] 1{tbl} Take 1 [facility] vitamin 8-22 102 tablet by ity of w/FA tablet 00:00: mouth [place] 00 daily. Medical Branch 0 Yes [id number] 1{tbl} Take 1 [facility] vitamin 8-22 102 tablet by ity of w/FA tablet 00:00: mouth [place] 00 daily. Medical Branch 0 Yes [id number] 1{tbl} Take 1 [facility] vitamin 8-22 102 tablet by ity of w/FA tablet 00:00: mouth [place] 00 daily. Medical Branch 2019-0 Yes [id number] 1{tbl} Take 1 [facility] vitamin 8-22 102 tablet by ity of w/FA tablet 00:00: mouth [place] 00 daily. Medical Branch 2019-0 Yes [id number] 1{tbl} Take 1 [facility] vitamin 8-22 102 tablet by ity of w/FA tablet 00:00: mouth [place] 00 daily. Medical Branch 2019-0 Yes [id number] 1{tbl} Take 1 [facility] vitamin 8-22 102 tablet by ity of w/FA tablet 00:00: mouth [place] 00 daily. Medical Branch 2019-0 Yes [id number] 1{tbl} Take 1 [facility] vitamin 8-22 102 tablet by ity of w/FA tablet 00:00: mouth [place] 00 daily. Medical Branch 2019-0 Yes [id number] 1{tbl} Take 1 [facility] vitamin 8-22 102 tablet by ity of w/FA tablet 00:00: mouth [place] 00 daily. Medical Branch Yes [id number] 1{tbl} Take 1 [facility] vitamin 8-22 102 tablet by ity of w/FA tablet 00:00: mouth [place] 00 daily. Medical Branch Yes [id number] 1{tbl} Take 1 [facility] vitamin 8-22 102 tablet by ity of w/FA tablet 00:00: mouth [place] 00 daily. Medical Branch Yes [id number] 1{tbl} Take 1 [facility] vitamin 8-22 102 tablet by ity of w/FA tablet 00:00: mouth [place] 00 daily. Medical Branch Yes [id number] 1{tbl} Take 1 [facility] vitamin 8-22 102 tablet by ity of w/FA tablet 00:00: mouth [place] 00 daily. Medical Branch Yes [id number] 1{tbl} Take 1 [facility] vitamin 8-22 102 tablet by ity of w/FA tablet 00:00: mouth [place] 00 daily. Medical Branch Yes [id number] 1{tbl} Take 1 [facility] vitamin 8-22 102 tablet by ity of w/FA tablet 00:00: mouth [place] 00 daily. Medical Branch Yes [id number] 1{tbl} Take 1 [facility] vitamin 8-22 102 tablet by ity of w/FA tablet 00:00: mouth [place] 00 daily. Medical Branch 2020- No [id number] 1{tbl} Take 1 [facility] vitamin 8-22 06-02 102 tablet by ity of w/FA tablet 00:00: 00:00 mouth [place] :00 daily. [facility] docusate 2019- No [id number] 240mg Take 1 [facility] calcium 240 01-21 102 capsule by i ty of mg capsule 00:00: 00:00 mouth once [place] 00 :00 daily as Medical needed for Branch Constipati on. ferrous 2019- No [id number] 325mg Take 1 [facility] sulfate 325 01-21 102 tablet by it y of mg (65 mg 00:00: 00:00 mouth 2 [place] iron) 00 :00 (two) Medical tablet times Branch daily. ibuprofen 2018- No [id number] 600mg Take 1 [facility] 600 mg 01-21 102 tablet by ity of tablet 00:00: 00:00 mouth [place] 00 :00 every 6 Medical (six) Branch hours as needed for Pain (scale 1-3) or Pain (scale 4-6) (Pain). Take with food or milk. HYDROcodone 2019-0 Yes 1{tbl} 1 tablet, [facility] -acetaminop 01-20 Oral, ity of hen (NORCO 13:08: Q6HPRN, [place] 5) 5-325 mg 41 Starting Medi demarcus tablet 1 Wed Branch tablet 01/20/19 at 0808, Until Discontinu ed, Routine, Pain (scale 7-10) acetaminoph 2019-0 Yes 650mg 650 mg, Un ghislaine en 01-20 Oral, ity of (TYLENOL) 13:08: Q6HPRN, [place] tablet 650 41 Starting Medic al mg Wed Branch 01/20/19 at 0808, Until Discontinu ed, Routine, Pain (scale 1-3) ibuprofen 2019-0 Yes 600mg 600 mg, Univ ers (IBU) 01-20 Oral, ity of tablet 600 13:08: Q6HPRN, [place] mg 41 Starting Medical Wed Branch 01/20/19 at 0808, Until Discontinu ed, Routine, Pain (scale 4-6) diphenhydrA 2019-0 Yes 25mg 25 mg, Univ ers MINE 01-20 Oral, ity of (BENADRYL) 13:08: Q6HPRN, [place] tablet 25 41 Starting Medica l mg Wed Branch 01/20/19 at 0808, Until Discontinu ed, Routine, Sleep, Itching simethicone 2019-0 Yes 160mg 160 mg, Un ghislaine (GAS 01-20 Oral, ity of RELIEF) 13:08: PC+HSPRN, [place] chewable 41 Starting Medical tablet 160 Wed Branch mg 01/20/19 at 0808, Until Discontinu ed, Routine, Gas docusate 2019-0 Yes 240mg 240 mg, Unive rs calcium 01-20 Oral, ity of (SURFAK) 13:08: QDAILYPRN, [place] capsule 240 41 Starting Medi demarcus mg Wed Branch 01/20/19 at 0808, Until Discontinu ed, Routine, Constipati on magnesium 2019-0 Yes 30mL 30 mL, Univer s hydroxide 01-20 Oral, ity of (MILK OF 13:08: QDAILYPRN, [place] MAGNESIA) 41 Starting Medica l 400 mg/5 mL Wed Branch suspension 01/20/19 at 30 mL 0808, Until Discontinu ed, Routine, Constipati on benzocaine- Yes Topical, Un ghislaine menthol 01-20 PRN, ity of (DERMOPLAST 13:08: [place] 20-0.5 % 41 Fri Medical topical 01/20/19 at Branch spray 0808, Until Discontinu ed, Routine, Perineum discomfort LR 1000 mL 2019- No 4mU/min 4 Uni vers + oxytocin 01-19 ruben-unit it y of 20 units IV 21:30: 13:08 s/min (12 [place] Solution 00 :46 mL/hr), at Medic al 12 mL/hr, Branch IV Infusion, CONTINUOUS , Starting 01/19/19 at 1630, Until Fri01/20/19 at 0808, DONNA D5W-LR IV 2019- No 1000mL at 125 Uni vers infusion 01-19 mL/hr, IV ity o f 1,000 mL 21:30: 13:08 Infusion, [place] 00 :46 CONTINUOUS Medical , Starting Branch 01/19/19 at 1630, Until Fri01/20/19 at 0808, Routine FENTanyl PF 2019- No 100ug 100 mcg, Univers (SUBLIMAZE 01-19 Slow IV ity o f (PF)) 21:23: 13:08 Push, [place] injection 03 :46 Q1HPRN, Medical 100 mcg Starting Branch 01/19/19 at 1623, Until Fri01/20/19 at 0808, Routine, contractio n pain without an epidural and SVE < 8 cm and Cat I strip proMETHazin 2019- No 25mg 25 mg, IV Univers e 01-19 Piggyback, ity of (PHENERGAN) 21:23: 13:08 Q6HPRN, [place] 25 mg in 03 :46 Starting Medical NaCl 0.9% Tue Branch (NS) 50 mL 01/19/19 at piggyback 1623, Until Fri01/20/19 at 0808, 50 mL ferrous 2019-0 Yes 325mg Take 1 [facility] sulfate 325 3-27 tablet by ity of mg (65 mg 00:00: mouth 2 [place] iron) 00 (two) Medical tablet times Branch daily. ferrous 2019-0 Yes 325mg Take 1 [facility] sulfate 325 3-27 tablet by ity of mg (65 mg 00:00: mouth 2 [place] iron) 00 (two) Medical tablet times Branch daily. ferrous 2019-0 Yes 325mg Take 1 [facility] sulfate 325 3-27 tablet by ity of mg (65 mg 00:00: mouth 2 [place] iron) 00 (two) Medical tablet times Branch daily. ferrous 2019-0 Yes 325mg Take 1 [facility] sulfate 325 3-27 tablet by ity of mg (65 mg 00:00: mouth 2 [place] iron) 00 (two) Medical tablet times Branch daily. ferrous 2019-0 Yes 325mg Take 1 [facility] sulfate 325 3-27 tablet by ity of mg (65 mg 00:00: mouth 2 [place] iron) 00 (two) Medical tablet times Branch daily. ferrous 2019-0 Yes 325mg Take 1 [facility] sulfate 325 3-27 tablet by ity of mg (65 mg 00:00: mouth 2 [place] iron) 00 (two) Medical tablet times Branch daily. ferrous 2019-0 2019- No 325mg Take 1 Univer s sulfate 325 3-27 08-22 tablet by it y of mg (65 mg 00:00: 00:00 mouth [place] iron) 00 :00 (two) Medical tablet times Branch daily. Prenat Vit 2019-0 Yes [id number] Take 1 Uni vers Comb.10-Iro 1-28 TAB-CAP/M2 it y of n-FA-DHA 00:00: by mouth [place] (VITAFOL-OB 00 daily. Medica l +DHA) Branch 65-1-250 mg combo pack Prenat Vit 2019-0 Yes [id number] Take 1 Uni vers Comb.10-Iro 1-28 TAB-CAP/M2 it y of n-FA-DHA 00:00: by mouth [place] (VITAFOL-OB 00 daily. Medica l +DHA) Branch 65-1-250 mg combo pack Prenat Vit 2019-0 Yes [id number] Take 1 Uni vers Comb.10-Iro 1-28 TAB-CAP/M2 it y of n-FA-DHA 00:00: by mouth [place] (VITAFOL-OB 00 daily. Medica l +DHA) Branch 65-1-250 mg combo pack Prenat Vit 2019-0 Yes [id number] Take 1 Uni vers Comb.10-Iro 28 TAB-CAP/M2 it y of n-FA-DHA 00:00: by mouth [place] (VITAFOL-OB 00 daily. Medica l +DHA) Branch 65-1-250 mg combo pack Prenat Vit 2019-0 Yes [id number] Take 1 Uni vers Comb.10-Iro 06-29 TAB-CAP/M2 it y of n-FA-DHA 00:00: by mouth [place] (VITAFOL-OB 00 daily. Medica l +DHA) Branch 65-1-250 mg combo pack Prenat Vit 2019-0 Yes [id number] Take 1 Uni vers Comb.10-Iro 06-29 TAB-CAP/M2 it y of n-FA-DHA 00:00: by mouth [place] (VITAFOL-OB 00 daily. Medica l +DHA) Branch 65-1-250 mg combo pack Prenat Vit 2018-0 2019- No [id number] Take 1 Un ghislaine Comb.10-Iro 06-29 08-22 TAB-CAP/M2 i ty of n-FA-DHA 00:00: 00:00 by mouth [place] (VITAFOL-OB 00 :00 daily. Medica l +DHA) Branch 65-1-250 mg combo pack Immunizations Ordered Filled Immunization Date Status Comments [facility] Immunization Name Name Varicella 2020-12-28 Completed University of (varivax)(chicken 00:00:00 [place] M edical pox) Branch Varicella 2020-12-28 Completed University of (varivax)(chicken 00:00:00 [place] M edical pox) Branch Varicella 2020-12-28 Completed University of (varivax)(chicken 00:00:00 [place] M edical pox) Branch Varicella 2020-12-28 Completed University of (varivax)(chicken 00:00:00 [place] M edical pox) Branch Varicella 2020-12-28 Completed University of (varivax)(chicken 00:00:00 [place] M edical pox) Branch Varicella 2020-11-30 Completed University of (varivax)(chicken 00:00:00 [place] M edical pox) Branch Varicella 2020-11-30 Completed University of (varivax)(chicken 00:00:00 [place] M edical pox) Branch Varicella 2020-11-30 Completed University of (varivax)(chicken 00:00:00 [place] M edical pox) Branch Varicella 2020-11-30 Completed University of (varivax)(chicken 00:00:00 [place] M edical pox) Branch Varicella 2020-11-30 Completed University of (varivax)(chicken 00:00:00 [place] M edical pox) Branch Varicella 2020-11-30 Completed University of (varivax)(chicken 00:00:00 [place] M edical pox) Branch Varicella 2020-11-30 Completed University of (varivax)(chicken 00:00:00 [place] M edical pox) Branch TDAP 2020-08-09 Completed University of 00:00:00 [facility] TDAP 2020-08-09 Completed University of 00:00:00 [facility] TDAP 2020-08-09 Completed University of 00:00:00 [facility] TDAP 2020-08-09 Completed University of 00:00:00 [facility] TDAP 2020-08-09 Completed University of 00:00:00 [facility] TDAP 2020-08-09 Completed University of 00:00:00 [facility] TDAP 2020-08-09 Completed University of 00:00:00 [facility] TDAP 2020-08-09 Completed University of 00:00:00 [facility] TDAP 2020-08-09 Completed University of 00:00:00 [facility] TDAP 2020-08-09 Completed University of 00:00:00 [facility] TDAP 2020-08-09 Completed University of 00:00:00 [facility] TDAP 2020-08-09 Completed University of 00:00:00 [facility] TDAP 2020-08-09 Completed University of 00:00:00 [facility] TDAP 2020-08-09 Completed University of 00:00:00 [facility] TDAP 2020-08-09 Completed University of 00:00:00 [facility] TDAP 2020-08-09 Completed University of 00:00:00 [facility] TDAP 2020-08-09 Completed University of 00:00:00 [facility] TDAP 2020-08-09 Completed University of 00:00:00 [place] [facility] TDAP 2020-08-09 Completed University of 00:00:00 [place] [facility] TDAP 2020-08-09 Completed University of 00:00:00 [place] [facility] TDAP 2020-08-09 Completed University of 00:00:00 [place] [facility] TDAP 2020-08-09 Completed University of 00:00:00 [place] [facility] TDAP 2020-08-09 Completed University of 00:00:00 [place] [facility] TDAP 2020-08-09 Completed University of 00:00:00 [place] [facility] TDAP 2020-08-09 Completed University of 00:00:00 [place] [facility] TDAP 2020-08-09 Completed University of 00:00:00 [facility] Influenza Virus 2020-03-22 Completed Universit y of Vaccine Quad .5 mL 00:00:00 [place] [facility] IM 6+ MO Branch Influenza Virus 2020-03-22 Completed Universit y of Vaccine Quad .5 mL 00:00:00 [place] [facility] IM 6+ MO Branch Influenza Virus 2020-03-22 Completed Universit y of Vaccine [place] .5 mL 00:00:00 [place] [facility] IM 6+ MO Branch Influenza Virus 2020-03-22 Completed Universit y of Vaccine Quad .5 mL 00:00:00 [place] [facility] IM 6+ MO Branch Influenza Virus 2020-03-22 Completed Universit y of Vaccine [place] .5 mL 00:00:00 [place] [facility] IM 6+ MO Branch Influenza Virus 2020-03-22 Completed Universit y of Vaccine [place] .5 mL 00:00:00 [place] [facility] IM 6+ MO Branch Influenza Virus 2020-03-22 Completed Universit y of Vaccine [place] .5 mL 00:00:00 [place] [facility] IM 6+ MO Branch Influenza Virus 2020-03-22 Completed Universit y of Vaccine [place] .5 mL 00:00:00 [place] [facility] IM 6+ MO Branch Influenza Virus 2020-03-22 Completed Universit y of Vaccine [place] .5 mL 00:00:00 [place] [facility] IM 6+ MO Branch Influenza Virus 2020-03-22 Completed Universit y of Vaccine [place] .5 mL 00:00:00 [place] [facility] IM 6+ MO Branch Influenza Virus 2020-03-22 Completed Universit y of Vaccine [place] .5 mL 00:00:00 [place] [facility] IM 6+ MO Branch Influenza Virus 2020-03-22 Completed Universit y of Vaccine Quad .5 mL 00:00:00 [place] [facility] IM 6+ MO Branch Influenza Virus 2020-03-22 Completed Universit y of Vaccine [place] .5 mL 00:00:00 [place] [facility] IM 6+ MO Branch Influenza Virus 2020-03-22 Completed Universit y of Vaccine [place] .5 mL 00:00:00 [place] [facility] IM 6+ MO Branch Influenza Virus 2020-03-22 Completed Universit y of Vaccine [place] .5 mL 00:00:00 [place] [facility] IM 6+ MO Branch Influenza Virus 2020-03-22 Completed Universit y of Vaccine [place] .5 mL 00:00:00 [place] [facility] IM 6+ MO Branch Influenza Virus 2020-03-22 Completed Universit y of Vaccine [place] .5 mL 00:00:00 [place] [facility] IM 6+ MO Branch Influenza Virus 2020-03-22 Completed Universit y of Vaccine [place] .5 mL 00:00:00 [place] [facility] IM 6+ MO Branch Influenza Virus 2020-03-22 Completed Universit y of Vaccine [place] .5 mL 00:00:00 [place] [facility] IM 6+ MO Branch Influenza Virus 2020-03-22 Completed Universit y of Vaccine [place] .5 mL 00:00:00 [place] [facility] IM 6+ MO Branch Influenza Virus 2020-03-22 Completed Universit y of Vaccine [place] .5 mL 00:00:00 [place] [facility] IM 6+ MO Branch Influenza Virus 2020-03-22 Completed Universit y of Vaccine [place] .5 mL 00:00:00 [place] [facility] IM 6+ MO Branch Influenza Virus 2020-03-22 Completed Universit y of Vaccine [place] .5 mL 00:00:00 [place] [facility] IM 6+ MO Branch Influenza Virus 2020-03-22 Completed Universit y of Vaccine [place] .5 mL 00:00:00 [place] [facility] IM 6+ MO Branch Influenza Virus 2020-03-22 Completed Universit y of Vaccine [place] .5 mL 00:00:00 [place] [facility] IM 6+ MO Branch Influenza Virus 2020-03-22 Completed Universit y of Vaccine [place] .5 mL 00:00:00 [place] [facility] IM 6+ MO Branch Influenza Virus 2020-03-22 Completed Universit y of Vaccine [place] .5 mL 00:00:00 [place] [facility] IM 6+ MO Branch Influenza Virus 2020-03-22 Completed Universit y of Vaccine [place] .5 mL 00:00:00 [place] [facility] IM 6+ MO Branch Influenza Virus 2020-03-22 Completed Universit y of Vaccine [place] .5 mL 00:00:00 [place] [facility] IM 6+ MO Branch Influenza Virus 2020-03-22 Completed Universit y of Vaccine [place] .5 mL 00:00:00 [place] [facility] IM 6+ MO Branch Influenza Virus 2020-03-22 Completed Universit y of Vaccine [place] .5 mL 00:00:00 [place] [facility] IM 6+ MO Branch Influenza Virus 2020-03-22 Completed Universit y of Vaccine [place] .5 mL 00:00:00 [place] [facility] IM 6+ MO Branch Influenza Virus 2020-03-22 Completed Universit y of Vaccine [place] .5 mL 00:00:00 [place] [facility] IM 6+ MO Branch Influenza Virus 2020-03-22 Completed Universit y of Vaccine Quad .5 mL 00:00:00 [place] [facility] IM 6+ MO Branch Influenza Virus 2020-03-22 Completed Universit y of Vaccine Quad .5 mL 00:00:00 [place] [facility] IM 6+ MO Branch Influenza Virus 2020-03-22 Completed Universit y of Vaccine Quad .5 mL 00:00:00 [place] [facility] IM 6+ MO Branch Influenza Virus 2020-03-22 Completed Universit y of Vaccine Quad .5 mL 00:00:00 [place] [facility] IM 6+ MO Branch Influenza Virus 2020-03-22 Completed Universit y of Vaccine [place] .5 mL 00:00:00 [place] [facility] IM 6+ MO Branch Influenza Virus 2020-03-22 Completed Universit y of Vaccine Quad .5 mL 00:00:00 [place] [facility] IM 6+ MO Branch Influenza Virus 2020-03-22 Completed Universit y of Vaccine [place] .5 mL 00:00:00 [place] [facility] IM 6+ MO Branch Influenza Virus 2020-03-22 Completed Universit y of Vaccine [place] .5 mL 00:00:00 [place] [facility] IM 6+ MO Branch Influenza Virus 2020-03-22 Completed Universit y of Vaccine [place] .5 mL 00:00:00 [place] [facility] IM 6+ MO Branch Influenza Virus 2020-03-22 Completed Universit y of Vaccine [place] .5 mL 00:00:00 [place] [facility] IM 6+ MO Branch TDAP (ADACEL) 2018-11-19 Completed University of VACCINE 00:00:00 [place] [facility] TDAP (ADACEL) 2018-11-19 Completed University of VACCINE 00:00:00 [place] [facility] TDAP (ADACEL) 2018-11-19 Completed University of VACCINE 00:00:00 [place] [facility] TDAP (ADACEL) 2018-11-19 Completed University of VACCINE 00:00:00 [place] [facility] TDAP (ADACEL) 2018-11-19 Completed University of VACCINE 00:00:00 [place] [facility] TDAP (ADACEL) 2018-11-19 Completed University of VACCINE 00:00:00 [place] [facility] TDAP (ADACEL) 2018-11-19 Completed University of VACCINE 00:00:00 [facility] TDAP (ADACEL) 2018-11-19 Completed University of VACCINE 00:00:00 [facility] TDAP (ADACEL) 2018-11-19 Completed University of VACCINE 00:00:00 [place] [facility] TDAP (ADACEL) 2018-11-19 Completed University of VACCINE 00:00:00 [facility] TDAP (ADACEL) 2018-11-19 Completed University of VACCINE 00:00:00 [facility] TDAP (ADACEL) 2018-11-19 Completed University of VACCINE 00:00:00 [place] [facility] TDAP (ADACEL) 2018-11-19 Completed University of VACCINE 00:00:00 [place] [facility] TDAP (ADACEL) 2018-11-19 Completed University of VACCINE 00:00:00 [place] [facility] TDAP (ADACEL) 2018-11-19 Completed University of VACCINE 00:00:00 [place] [facility] TDAP (ADACEL) 2018-11-19 Completed University of VACCINE 00:00:00 [place] [facility] TDAP (ADACEL) 2018-11-19 Completed University of VACCINE 00:00:00 [place] [facility] TDAP (ADACEL) 2018-11-19 Completed University of VACCINE 00:00:00 [place] [facility] TDAP (ADACEL) 2018-11-19 Completed University of VACCINE 00:00:00 [place] [facility] TDAP (ADACEL) 2018-11-19 Completed University of VACCINE 00:00:00 [place] [facility] TDAP (ADACEL) 2018-11-19 Completed University of VACCINE 00:00:00 [place] [facility] TDAP (ADACEL) 2018-11-19 Completed University of VACCINE 00:00:00 [place] [facility] TDAP (ADACEL) 2018-11-19 Completed University of VACCINE 00:00:00 [place] [facility] TDAP (ADACEL) 2018-11-19 Completed University of VACCINE 00:00:00 [facility] TDAP (ADACEL) 2018-11-19 Completed University of VACCINE 00:00:00 [place] [facility] TDAP (ADACEL) 2018-11-19 Completed University of VACCINE 00:00:00 [place] [facility] TDAP (ADACEL) 2018-11-19 Completed University of VACCINE 00:00:00 [place] [facility] TDAP (ADACEL) 2018-11-19 Completed University of VACCINE 00:00:00 [place] [facility] TDAP (ADACEL) 2018-11-19 Completed University of VACCINE 00:00:00 [place] [facility] TDAP (ADACEL) 2018-11-19 Completed University of VACCINE 00:00:00 [place] [facility] TDAP (ADACEL) 2018-11-19 Completed University of VACCINE 00:00:00 [place] [facility] TDAP (ADACEL) 2018-11-19 Completed University of VACCINE 00:00:00 [place] [facility] TDAP (ADACEL) 2018-11-19 Completed University of VACCINE 00:00:00 [place] [facility] TDAP (ADACEL) 2018-11-19 Completed University of VACCINE 00:00:00 [place] [facility] TDAP (ADACEL) 2018-11-19 Completed University of VACCINE 00:00:00 [place] [facility] TDAP (ADACEL) 2018-11-19 Completed [facility] VACCINE 00:00:00 [facility] TDAP (ADACEL) 2018-11-19 Completed [facility] of VACCINE 00:00:00 [facility] TDAP (ADACEL) 2018-11-19 Completed [facility] of VACCINE 00:00:00 [facility] TDAP (ADACEL) 2018-11-19 Completed [facility] of VACCINE 00:00:00 [facility] TDAP (ADACEL) 2018-11-19 Completed [facility] VACCINE 00:00:00 [facility] TDAP (ADACEL) 2018-11-19 Completed [facility] VACCINE 00:00:00 [facility] TDAP (ADACEL) 2018-11-19 Completed [facility] VACCINE 00:00:00 [facility] TDAP (ADACEL) 2018-11-19 Completed [facility] VACCINE 00:00:00 [facility] TDAP (ADACEL) 2018-11-19 Completed [facility] VACCINE 00:00:00 [facility] TDAP (ADACEL) 2018-11-19 Completed [facility] VACCINE 00:00:00 [facility] TDAP (ADACEL) 2018-11-19 Completed [facility] VACCINE 00:00:00 [facility] TDAP (ADACEL) 2018-11-19 Completed [facility] VACCINE 00:00:00 [facility] TDAP (ADACEL) 2018-11-19 Completed [facility] VACCINE 00:00:00 [facility] TDAP (ADACEL) 2018-11-19 Completed [facility] VACCINE 00:00:00 [facility] TDAP (ADACEL) 2018-11-19 Completed [facility] VACCINE 00:00:00 [facility] TDAP (ADACEL) 2018-11-19 Completed [facility] VACCINE 00:00:00 [facility] TDAP (ADACEL) 2018-11-19 Completed [facility] VACCINE 00:00:00 [facility] TDAP (ADACEL) 2018-11-19 Completed [facility] VACCINE 00:00:00 [facility] TDAP (ADACEL) 2018-11-19 Completed [facility] VACCINE 00:00:00 [facility] TDAP (ADACEL) 2018-11-19 Completed [facility] VACCINE 00:00:00 [facility] TDAP (ADACEL) 2018-11-19 Completed [facility] VACCINE 00:00:00 [facility] TDAP (ADACEL) 2018-11-19 Completed [facility] VACCINE 00:00:00 [facility] Vital Signs Vital Name Observation Time Observation Value Comments Source Systolic blood 2020-12-28 19:29:00 108 mm[Hg] Univer sity of pressure [facility] Diastolic blood 2020-12-28 19:29:00 67 mm[Hg] Unive rsity of [facility] Heart rate 2020-12-28 19:29:00 81 /min [facility] Body temperature 2020-12-28 19:29:00 37.22 Farrah [facility] Respiratory rate 2020-12-28 19:29:00 18 /min [facility] Body height 2020-12-28 19:29:00 157.5 cm [facility] Body weight 2020-12-28 19:29:00 71.124 kg [facility] BMI 2020-12-28 19:29:00 28.68 kg/m2 [facility] Systolic blood 2020-11-30 16:32:00 118 mm[Hg] Univer sity of pressure [facility] Diastolic blood 2020-11-30 16:32:00 72 mm[Hg] Unive rsity of pressure [facility] Heart rate 2020-11-30 16:32:00 78 /min [facility] Body temperature 2020-11-30 16:32:00 36.72 Farrah Univ ersity of [facility] Respiratory rate 2020-11-30 16:32:00 18 /min Univ ersity of [facility] Body height 2020-11-30 16:32:00 157.5 cm [facility] ty [facility] Body weight 2020-11-30 16:32:00 72.122 kg Universi ty of [facility] BMI 2020-11-30 16:32:00 29.08 kg/m2 Universi ty of [facility] Systolic blood 2020-11-01 17:00:00 96 mm[Hg] Univer sity of pressure [facility] Diastolic blood 2020-11-01 17:00:00 48 mm[Hg] Unive rsity of [facility] Heart rate 2020-11-01 17:00:00 84 /min Universi ty of [facility] Body temperature 2020-11-01 17:00:00 36.78 Farrah Univ ersity of [facility] Respiratory rate 2020-11-01 17:00:00 16 /min Univ ersity of [facility] Oxygen saturation in 2020-11-01 17:00:00 100 /min University Arterial blood by [facility] Pulse oximetry Branch Body height 2020-10-31 13:00:00 157.5 cm [facility] ty [facility] Body weight 2020-10-31 13:00:00 80.74 kg [facility]i [facility] BMI 2020-10-31 13:00:00 32.56 kg/m2 Universi ty of [facility] Systolic blood 2020-10-26 16:52:00 119 mm[Hg] Univer sity of pressure [facility] Diastolic blood 2020-10-26 16:52:00 79 mm[Hg] Unive rsity of pressure [facility] Heart rate 2020-10-26 16:52:00 98 /min Universi ty of [facility] Body temperature 2020-10-26 16:52:00 36.72 Farrah Univ ersity of [facility] Respiratory rate 2020-10-26 16:52:00 18 /min Univ ersity of [facility] Body height 2020-10-26 16:52:00 157.5 cm Universi ty of [facility] Body weight 2020-10-26 16:52:00 79.379 kg [facility] BMI 2020-10-26 16:52:00 32.01 kg/m2 [facility] Systolic blood 2020-10-19 19:39:00 106 mm[Hg] Univer sity of pressure [facility] Diastolic blood 2020-10-19 19:39:00 79 mm[Hg] Unive rsity of pressure [facility] Heart rate 2020-10-19 19:39:00 106 /min [facility] Body temperature 2020-10-19 19:39:00 36.83 Farrah [facility] Respiratory rate 2020-10-19 19:39:00 18 /min Univ ersity of [facility] Body height 2020-10-19 19:39:00 157.5 cm [facility] Body weight 2020-10-19 19:39:00 79.652 kg [facility] BMI 2020-10-19 19:39:00 32.12 kg/m2 [facility] Systolic blood 2020-10-05 19:26:00 114 mm[Hg] Univer sity of pressure [facility] Diastolic blood 2020-10-05 19:26:00 78 mm[Hg] Unive rsity of pressure [facility] Heart rate 2020-10-05 19:26:00 103 /min [facility]i ty [facility] Body temperature 2020-10-05 19:26:00 36.72 Farrah [facility] Respiratory rate 2020-10-05 19:26:00 18 /min Univ ersity of [facility] Body height 2020-10-05 19:26:00 157.5 cm [facility] Body weight 2020-10-05 19:26:00 78.019 kg [facility] BMI 2020-10-05 19:26:00 31.46 kg/m2 [facility] Systolic blood 2020-10-05 19:26:00 114 mm[Hg] Univer sity of pressure [facility] Diastolic blood 2020-10-05 19:26:00 78 mm[Hg] Unive rsity of pressure [facility] Heart rate 2020-10-05 19:26:00 103 /min [facility]i ty [facility] Body temperature 2020-10-05 19:26:00 36.72 Farrah [facility] Respiratory rate 2020-10-05 19:26:00 18 /min Univ ersity of [facility] Body height 2020-10-05 19:26:00 157.5 cm [facility] Body weight 2020-10-05 19:26:00 78.019 kg [facility] BMI 2020-10-05 19:26:00 31.46 kg/m2 [facility] Systolic blood 2020-10-05 19:26:00 114 mm[Hg] Univer sity of pressure [facility] Diastolic blood 2020-10-05 19:26:00 78 mm[Hg] Unive rsity of pressure [facility] Heart rate 2020-10-05 19:26:00 103 /min [facility]i [facility] Body temperature 2020-10-05 19:26:00 36.72 Farrah [facility] Respiratory rate 2020-10-05 19:26:00 18 /min Univ ersity of [facility] Body height 2020-10-05 19:26:00 157.5 cm [facility] Body weight 2020-10-05 19:26:00 78.019 kg [facility] BMI 2020-10-05 19:26:00 31.46 kg/m2 [facility] Systolic blood 2020-10-05 19:26:00 114 mm[Hg] Univer sity of pressure [facility] Diastolic blood 2020-10-05 19:26:00 78 mm[Hg] Unive rsity of pressure [facility] Heart rate 2020-10-05 19:26:00 103 /min [facility]i ty [facility] Body temperature 2020-10-05 19:26:00 36.72 Farrah [facility] Respiratory rate 2020-10-05 19:26:00 18 /min Univ ersity of [facility] Body height 2020-10-05 19:26:00 157.5 cm [facility] Body weight 2020-10-05 19:26:00 78.019 kg [facility] BMI 2020-10-05 19:26:00 31.46 kg/m2 [facility] Systolic blood 2020-09-21 19:20:00 109 mm[Hg] Univer sity of pressure [facility] Diastolic blood 2020-09-21 19:20:00 71 mm[Hg] Unive rsity of pressure [facility] Heart rate 2020-09-21 19:20:00 104 /min [facility] Body temperature 2020-09-21 19:20:00 36.94 Farrah [facility] Respiratory rate 2020-09-21 19:20:00 18 /min Univ ersity of [facility] Body height 2020-09-21 19:20:00 157.5 cm [facility] Body weight 2020-09-21 19:20:00 77.111 kg [facility] BMI 2020-09-21 19:20:00 31.09 kg/m2 [facility] Systolic blood 2020-09-07 18:44:00 119 mm[Hg] Univer sity of pressure [facility] Diastolic blood 2020-09-07 18:44:00 75 mm[Hg] Unive rsity of pressure [facility] Heart rate 2020-09-07 18:44:00 114 /min [facility] Body temperature 2020-09-07 18:44:00 37.33 Farrah [facility] Respiratory rate 2020-09-07 18:44:00 16 /min Univ ersity of [facility] Body height 2020-09-07 18:44:00 157.5 cm [facility] Body weight 2020-09-07 18:44:00 76.567 kg [facility] BMI 2020-09-07 18:44:00 30.87 kg/m2 [facility] Systolic blood 2020-08-09 19:49:00 114 mm[Hg] Univer sity of pressure [facility] Diastolic blood 2020-08-09 19:49:00 68 mm[Hg] Unive rsity of pressure [facility] Heart rate 2020-08-09 19:49:00 100 /min [facility]i ty [facility] Body temperature 2020-08-09 19:49:00 36.83 Farrah [facility] Respiratory rate 2020-08-09 19:49:00 18 /min Univ ersity of [facility] Body height 2020-08-09 19:49:00 157.5 cm [facility] Body weight 2020-08-09 19:49:00 73.936 kg [facility] BMI 2020-08-09 19:49:00 29.81 kg/m2 [facility] Systolic blood 2020-07-12 17:19:00 102 mm[Hg] Univer sity of pressure [facility] Diastolic blood 2020-07-12 17:19:00 62 mm[Hg] Unive rsity of pressure [facility] Heart rate 2020-07-12 17:19:00 82 /min [facility] Body temperature 2020-07-12 17:19:00 36.83 Farrah [facility] Respiratory rate 2020-07-12 17:19:00 16 /min Univ ersity of [facility] Body height 2020-07-12 17:19:00 157.5 cm [facility]i [facility] Body weight 2020-07-12 17:19:00 69.945 kg [facility] BMI 2020-07-12 17:19:00 28.20 kg/m2 [facility] Body height 2020-06-14 19:25:00 157.5 cm [facility] Body weight 2020-06-14 19:25:00 67.586 kg [facility] BMI 2020-06-14 19:25:00 27.25 kg/m2 [facility] Systolic blood 2020-06-14 19:25:00 111 mm[Hg] Univer sity of pressure [facility] Diastolic blood 2020-06-14 19:25:00 68 mm[Hg] Unive rsity of pressure [facility] Heart rate 2020-06-14 19:25:00 105 /min [facility] Body temperature 2020-06-14 19:25:00 36.83 Farrah [facility] Respiratory rate 2020-06-14 19:25:00 18 /min Univ ersity of [facility] Systolic blood 2020-05-17 19:34:00 109 mm[Hg] Univer sity of pressure [facility] Diastolic blood 2020-05-17 19:34:00 63 mm[Hg] Unive rsity of pressure [facility] Heart rate 2020-05-17 19:34:00 97 /min [facility] Body temperature 2020-05-17 19:34:00 37.11 Farrah [facility] Respiratory rate 2020-05-17 19:34:00 18 /min Univ ersity of [facility] Body height 2020-05-17 19:34:00 158.8 cm [facility] Body weight 2020-05-17 19:34:00 66.225 kg [facility] BMI 2020-05-17 19:34:00 26.28 kg/m2 [facility] Systolic blood 2020-04-19 17:36:00 104 mm[Hg] Univer sity of pressure [facility] Diastolic blood 2020-04-19 17:36:00 70 mm[Hg] Unive rsity of pressure [facility] Heart rate 2020-04-19 17:36:00 101 /min [facility]i [facility] Body temperature 2020-04-19 17:36:00 37.17 Farrah [facility] Respiratory rate 2020-04-19 17:36:00 18 /min Univ ersity of [facility] Body height 2020-04-19 17:36:00 157.5 cm [facility] Body weight 2020-04-19 17:36:00 67.586 kg [facility]i ty of [facility] BMI 2020-04-19 17:36:00 27.25 kg/m2 [facility] Systolic blood 2020-03-22 19:16:00 110 mm[Hg] Univer sity of pressure [facility] Diastolic blood 2020-03-22 19:16:00 72 mm[Hg] Unive rsity of pressure [facility] Heart rate 2020-03-22 19:16:00 84 /min [facility]i [facility] Body temperature 2020-03-22 19:16:00 36.78 Farrah [facility] Respiratory rate 2020-03-22 19:16:00 18 /min Univ ersity of [facility] Body height 2020-03-22 19:16:00 157.5 cm [facility]i ty [facility] Body weight 2020-03-22 19:16:00 66.225 kg [facility]i ty [facility] BMI 2020-03-22 19:16:00 26.70 kg/m2 [facility] ty [facility] Systolic blood 2019-02-18 18:18:00 104 mm[Hg] Univer sity of pressure [facility] Diastolic blood 2019-02-18 18:18:00 66 mm[Hg] Unive rsity of pressure [facility] Heart rate 2019-02-18 18:18:00 86 /min Universi ty of [facility] Body temperature 2019-02-18 18:18:00 36.94 Farrah [facility] Respiratory rate 2019-02-18 18:18:00 18 /min Univ ersity of [facility] Body height 2019-02-18 18:18:00 160 cm [facility]i ty [facility] Body weight 2019-02-18 18:18:00 63.231 kg [facility] ty [facility] BMI 2019-02-18 18:18:00 24.69 kg/m2 [facility] Systolic blood 2019-02-18 18:18:00 104 mm[Hg] Univer sity of pressure [facility] Diastolic blood 2019-02-18 18:18:00 66 mm[Hg] Unive rsity of pressure [facility] Heart rate 2019-02-18 18:18:00 86 /min [facility]i ty of [facility] Body temperature 2019-02-18 18:18:00 36.94 Farrah [facility] of [facility] Respiratory rate 2019-02-18 18:18:00 18 /min Univ ersity of [facility] Body height 2019-02-18 18:18:00 160 cm [facility] Body weight 2019-02-18 18:18:00 63.231 kg [facility] ty [facility] BMI 2019-02-18 18:18:00 24.69 kg/m2 [facility] ty [facility] Systolic blood 2019-01-24 02:00:00 118 mm[Hg] Univer sity of pressure [facility] Diastolic blood 2019-01-24 02:00:00 88 mm[Hg] Unive rsity of pressure [facility] Heart rate 2019-01-24 02:00:00 109 /min Universi ty of [facility] Respiratory rate 2019-01-24 02:00:00 18 /min Univ ersity of [facility] Oxygen saturation in 2019-01-24 02:00:00 100 /min University of Arterial blood by [facility] Pulse oxim[facility] Body temperature 2019-01-24 01:04:00 38.22 Farrah Univ ersity of [facility] Body weight 2019-01-24 01:04:00 66.679 kg [facility]i ty [facility] Systolic blood 2019-01-24 02:00:00 118 mm[Hg] Univer sity of pressure [facility] Diastolic blood 2019-01-24 02:00:00 88 mm[Hg] Unive rsity of pressure [facility] Heart rate 2019-01-24 02:00:00 109 /min Universi ty of [facility] Respiratory rate 2019-01-24 02:00:00 18 /min Univ ersity of [facility] Oxygen saturation in 2019-01-24 02:00:00 100 /min University of Arterial blood by [facility] P[facility] Body temperature 2019-01-24 01:04:00 38.22 Farrah [facility] Body weight 2019-01-24 01:04:00 66.679 kg [facility]i ty [facility] Systolic blood 2019-01-21 13:12:00 120 mm[Hg] Univer sity of pressure [facility] Diastolic blood 2019-01-21 13:12:00 77 mm[Hg] Unive rsity of pressure [facility] Heart rate 2019-01-21 13:12:00 67 /min [facility]i ty of [facility] Body temperature 2019-01-21 13:12:00 36.61 Farrah [facility] Respiratory rate 2019-01-21 13:12:00 16 /min Univ ersity of [facility] Oxygen saturation in 2019-01-21 13:12:00 99 /min University of Arterial blood by [facility] Body weight 2019-01-19 20:30:00 70.761 kg [facility] BMI 2019-01-19 20:30:00 27.63 kg/m2 [facility] Systolic blood 2019-01-21 13:12:00 120 mm[Hg] Univer sity of pressure [facility] Diastolic blood 2019-01-21 13:12:00 77 mm[Hg] Unive rsity of pressure [facility] Heart rate 2019-01-21 13:12:00 67 /min [facility] Body temperature 2019-01-21 13:12:00 36.61 Farrah [facility] Respiratory rate 2019-01-21 13:12:00 16 /min Univ ersity of [facility] Oxygen saturation in 2019-01-21 13:12:00 99 /min University of Arterial blood by [facility] Pulse oximetry Branch Body weight 2019-01-19 20:30:00 70.761 kg [facility] ty [facility] BMI 2019-01-19 20:30:00 27.63 kg/m2 [facility] Systolic blood 2019-01-14 17:07:00 105 mm[Hg] Univer sity of pressure [facility] Diastolic blood 2019-01-14 17:07:00 64 mm[Hg] Unive rsity of pressure [facility] Heart rate 2019-01-14 17:07:00 76 /min [facility] ty [facility] Body temperature 2019-01-14 17:07:00 36.67 Farrah [facility] Respiratory rate 2019-01-14 17:07:00 20 /min Univ ersity of [facility] Body height 2019-01-14 17:07:00 160 cm [facility] Body weight 2019-01-14 17:07:00 69.4 kg [facility] BMI 2019-01-14 17:07:00 27.10 kg/m2 [facility] Systolic blood 2019-01-14 17:07:00 105 mm[Hg] Univer sity of pressure [facility] Diastolic blood 2019-01-14 17:07:00 64 mm[Hg] Unive rsity of pressure [facility] Heart rate 2019-01-14 17:07:00 76 /min [facility] Body temperature 2019-01-14 17:07:00 36.67 Farrah [facility] Respiratory rate 2019-01-14 17:07:00 20 /min Univ ersity of [facility] Body height 2019-01-14 17:07:00 160 cm [facility] Body weight 2019-01-14 17:07:00 69.4 kg [facility] BMI 2019-01-14 17:07:00 27.10 kg/m2 [facility] Systolic blood 2019-01-04 16:24:00 105 mm[Hg] Univer sity of pressure [facility] Diastolic blood 2019-01-04 16:24:00 69 mm[Hg] Unive rsity of pressure [facility] Heart rate 2019-01-04 16:24:00 89 /min Universi ty of [facility] Body temperature 2019-01-04 16:24:00 36.56 Farrah [facility] of [facility] Respiratory rate 2019-01-04 16:24:00 18 /min Univ ersity of [facility] Body height 2019-01-04 16:24:00 158.8 cm [facility] Body weight 2019-01-04 16:24:00 68.947 kg [facility] BMI 2019-01-04 16:24:00 27.36 kg/m2 Universi ty of [facility] Systolic blood 2019-01-04 16:24:00 105 mm[Hg] Univer sity of pressure [facility] Diastolic blood 2019-01-04 16:24:00 69 mm[Hg] Unive rsity of pressure [facility] Heart rate 2019-01-04 16:24:00 89 /min Universi ty of [facility] Body temperature 2019-01-04 16:24:00 36.56 Farrah Univ [facility] of [facility] Respiratory rate 2019-01-04 16:24:00 18 /min Univ ersity of [facility] Body height 2019-01-04 16:24:00 158.8 cm [facility] Body weight 2019-01-04 16:24:00 68.947 kg [facility] BMI 2019-01-04 16:24:00 27.36 kg/m2 [facility] Procedures Procedure Date / Time Performing Clinician Source Performed DME/SUPPLY JUSTIFICATION 2021-01-09 05:01:00 Doctor Unassigned, No [facility] Name Medical Branch VARICELLA 2020-12-28 19:31:19 Vanaphan, [facility] (VARIVAX)([facility] P[facility]) [facility] VACCINE VARICELLA 2020-11-30 16:44:44 [facility] (VARIVAX)([facility] P[facility]) [facility] VACCINE CONSENT FOR 2020-11-30 05:01:00 Doctor Unassigned, No [facility] CONTRACEPTION [facility] POCT TEST 2020-11-30 00:00:00 Kathleen Benavides [facility] CBC WITH DIFF 2020-11-01 06:48:00 [facility] GAS 2020-10-31 19:59:00 Willie [facility] CENTRAL NEURAXIAL BLOCK 2020-10-31 19:53:21 Zoie Butt [facility] HEPATITIS B SURFACE 2020-10-31 10:14:00 Sonido Tapia [facility] ANTIGEN [facility] ADC OR [place] ONLY - 2020-10-31 10:14:00 [facility] HIV 1/2 AG-AB WITH 2020-10-31 10:14:00 Sonido Tapia [facility] REFLEX [facility] CBC WITH DIFF 2020-10-31 10:13:00 Sonido Tapia [facility] HB ABO GROUPING 2020-10-31 10:13:00 Willie [facility] RHO (D) IMMUNE GLOBULIN 2020-10-31 10:13:00 Sonido Tapia [facility] HOSPITAL ADMISSION 2020-10-31 05:01:00 Doctor Unassigned, No [facility] ASSIGNMENT OF BENEFITS 2020-10-27 18:32:25 Doctor Unassigned, No [facility] ASSIGNMENT OF BENEFITS 2020-10-26 17:13:12 Doctor Unassigned, No [facility] POCT URINALYSIS W/O 2020-10-26 00:00:00 Kathleen Benavides [facility] SPECIFIC GRAVITY [facility] POCT URINALYSIS W/O 2020-10-19 00:00:00 Tapia, Sonido Cam [facility] >14 WEEKS US 2020-10-05 19:51:21 Kathleen Benavides [facility] >14 WEEKS US 2020-10-05 19:51:21 Kathleen Benavides [facility] DSU PRE-OP 2020-10-05 05:01:00 Doctor Unassigned, Missy Fam [facility] POCT URINALYSIS W/O 2020-10-05 00:00:00 Kathleen Benavides [facility] POCT URINALYSIS W/O 2020-10-05 00:00:00 Kathleen Benavides [facility] POCT URINALYSIS W/O 2020-09-21 00:00:00 Kathleen Benavides [facility] POCT URINALYSIS W/O 2020-09-07 18:45:00 Sonido Tapia [facility] TDAP VACCINE, >11 YRS, 2020-08-09 20:00:43 Kathleen Benavides [facility] CBC WITH DIFF 2020-08-09 18:48:00 Sonido Tapia [place] [facility] POCT URINALYSIS W/O 2020-08-09 00:00:00 Kathleen Benavides [facility] POCT URINALYSIS W/O 2020-07-12 17:20:00 Sonido Tapia [facility] POCT URINALYSIS W/O 2020-06-14 00:00:00 Kathleen Benavides [facility] POCT URINALYSIS W/O 2020-05-17 00:00:00 Lyly Ayala [facility] SCANNED LAB RESULTS 2020-04-19 06:01:00 [facility] 2020-04-19 00:00:00 Kathleen Benavides [facility] EXTERNAL PROVIDER 2020-04-04 06:01:00 Doctor Unassigned, No [facility] RECORDS [facility] US OB TRANSVAGINAL 2020-03-22 21:28:59 Sonido Tapia [facility] FLU VACC ([id number]), 6+ 2020-03-22 19:41:02 Sonido Tapia [facility] MONTHS, IM, QUAD Medical Branch ASSIGNMENT OF BENEFITS 2020-03-22 19:04:18 Doctor Unassigned, No [facility] LACTIC ACID WHOLE BLOOD 2019-01-24 01:34:00 Km Escalera [facility] COMP. METABOLIC PANEL 2019-01-24 01:33:00 Km Escalera [facility] ([id number]) Medical [place] CBC WITH DIFFERENTIAL 2019-01-24 01:33:00 Km Escalera [facility] URINALYSIS 2019-01-24 01:33:00 Km Escalera [facility] CONSENT/REFUSAL FOR 2019-01-24 00:54:40 Doctor Unassigned, No Un [facility] DIAGNOSIS AND TREATMENT [facility] CBC WITH DIFFERENTIAL 2019-01-21 08:33:00 Sonido Tapia [facility] VENOUS CORD GAS 2019-01-20 12:06:00 Sonido Tapia [facility] TYPE AND SCREEN 2019-01-19 21:30:00 Sonido Tapia [facility] CBC WITH DIFFERENTIAL 2019-01-19 21:27:00 Sonido Tapia [facility] HEPATITIS B SURFACE 2019-01-19 21:27:00 Sonido Tapia [facility] ANTIGEN [facility] Branch ADC OR DIEGO ONLY - 2019-01-19 21:27:00 Sonido Tapia [facility] RPR [facility] ADC, CLC OR LCC ONLY - 2019-01-19 21:27:00 Sonido Tapia [facility] HIV TYPE 1 AND 2 Medical Branch ANTIBODY SCREEN WITH P24 CONSENT/REFUSAL FOR 2019-01-14 17:38:58 Doctor Unassigned, [facility] ASSIGNMENT OF BENEFITS 2019-01-14 17:38:38 Doctor Unassigned, No [facility] POCT URINALYSIS W/O 2019-01-14 00:00:00 Sonido Tapia [facility] CBC WITH DIFFERENTIAL 2019-01-04 17:34:00 Kathleen Benavides [facility] DSU PRE-OP 2019-01-04 05:01:00 Doctor Unassigned, [facility] POCT URINALYSIS W/O 2019-01-04 00:00:00 Kathleen Benavides [facility] Plan of Care Planned Activity Planned Date Details Comments Source Future Scheduled 2030-08-09 DTaP,Tdap,and Td Univers ity of Test 00:00:00 Vaccines (3 - Td) [place] [facility] demarcus [code = Branch DTaP,Tdap,and Td Vaccines (3 - Td)] Future Scheduled 2030-08-09 DTaP,Tdap,and Td Univers ity of Test 00:00:00 Vaccines (3 - Td) [place] [facility] demarc[facility] [code = Branch DTaP,Tdap,and Td Vaccines (3 - Td)] Future Scheduled 2023-03-22 Screening for University of Test 00:00:00 malignant neoplasm [place] [facility] ical of cervix Branch (procedure) [code = 825139555] Future Scheduled 2023-03-22 Screening for University of Test 00:00:00 malignant neoplasm [place] [facility] ical of cervix Branch (procedure) [code = 185603595] Future Scheduled 2021-04-19 Screening for University of Test 00:00:00 Chlamydia [place] [facility] trachomatis Branch (procedure) [code = 612504854] Future Scheduled 2021-04-19 Screening for University of Test 00:00:00 Chlamydia [place] [facility] trachomatis Branch (procedure) [code = 317235901] Diagnostic Test 2020-10-05 GROUP B Expected: University o f Pending 00:00:00 STREPTOCOCCUS BY PCR 10/05/2020, Rosa Isela quintanilla [code = 07440] Expires: Branch 10/05/2021 Diagnostic Test 2020-10-05 GC & CHLAMYDIA Expected: University of Pending 00:00:00 AMPLIFIED ASSAY 10/05/2020, Rosa Isela Castellanosa l [code = 64668-7] Expires: Branch 10/05/2021 Diagnostic Test 2020-10-05 CBC WITH DIFF [code Expected: Unive rsity of Pending 00:00:00 = 19513-8] 10/05/2020, [place] [facility] Expires: Branch 10/05/2021 Future Scheduled 2014 SARS-CoV-2 University of Test 00:00:00 (COVID-19) Vaccine [place] [facility] ical (1) [code = Branch SARS-CoV-2 (COVID-19) Vaccine (1)] Future Scheduled 2014 SARS-CoV-2 University of Test 00:00:00 (COVID-19) Vaccine [place] [facility] ical (1) [code = Branch SARS-CoV-2 (COVID-19) Vaccine (1)] Future Scheduled 2010 Depression screening Uni versity of Test 00:00:00 (procedure) [code = [facility] [place] dical 140610070] Branch Future Scheduled 2010 Depression screening Uni versity of Test 00:00:00 (procedure) [code = [facility] dical 395582931] Branch Future Scheduled 2009 HPV VACCINES (1 - Univer sity of Test 00:00:00 2-dose series) [code [place] M edical = HPV VACCINES (1 - Branch 2-dose series)] Future Scheduled 2009 HPV VACCINES (1 - Univer sity of Test 00:00:00 2-dose series) [code [place] M edical = HPV VACCINES (1 - Branch 2-dose series)] Future Scheduled 2008 MENINGOCOCCAL B Universi ty of Test 00:00:00 VACCINES (1 of 2 - [place] [facility] ical Risk Bexsero 2-dose Branch series) [code = MENINGOCOCCAL B VACCINES (1 of 2 - Risk Bexsero 2-dose series)] Future Scheduled 2008 MENINGOCOCCAL B Universi ty of Test 00:00:00 VACCINES (1 of 2 - [place] Med ical Risk Bexsero 2-dose Branch series) [code = MENINGOCOCCAL B VACCINES (1 of 2 - Risk Bexsero 2-dose series)] Future Scheduled 1999-08-31 VARICELLA VACCINES Unive rsity of Test 00:00:00 (1 of 2 - 2-dose [place] Medic al childhood series) Branch [code = VARICELLA VACCINES (1 of 2 - 2-dose childhood series)] Future Scheduled 1999-08-31 VARICELLA VACCINES Unive rsity of Test 00:00:00 (1 of 2 - 2-dose [place] [facility] childhood series) Branch [code = VARICELLA VACCINES (1 of 2 - 2-dose childhood series)] Encounters Start End Encounter Admission Attending Care Care Encounter Source Date/Time Date/Time Type Type Clinicians Facility Department ID 2021-04-01 Outpatient P [facility] [id number] Univers 21:44:33 ity [facility] 2021-06-05 2021-06-05 Outpatient R KENNEDY [facility] [id number] 3Q-20 Univers 14:30:00 14:30:00 KATHLEEN [id number] ity [facility] 2021-03-02 2021-03-02 Outpatient R [facility] [id number] Univers 14:30:00 14:30:00 [id number] ity [facility] 2021-01-29 2021-01-29 Telephone Kennedy [facility] 1.2.840.114 [id number] Univers 00:00:00 00:00:00 Kathleen Bejarano 350.1.13.10 [phone] Ct dical nal [address] [place] [address] 2021-01-09 2021-01-09 Case Sonido Tapia [facility] 1.2.081.190 [id number] Univers 00:00:00 00:00:00 Management Silvana Bejarano 350.1.13.10 [place] [phone] Ct dical nal 134 [facility] 2021-01-09 2021-01-09 Orders Doctor SOLO 1.2.840.114 [id number] Univers 00:00:00 00:00:00 Only Unassigned, CANDICE 350.1.13.10 ity of [place] [facility] 4.2.7.2.686 Shaun as [phone] [address] 2020-12-28 2020-12-28 Nurse Nurse, [facility] 1.2.840.114 [id number] Univers 13:50:59 14:30:02 Visit Kathleen Benavides 350.1.13.10 [place] [phone] [address] 2020-12-28 2020-12-28 Outpatient R [facility] [id number] Univers 14:00:00 14:00:00 [id number] ity [facility] 2020-12-28 2020-12-28 Outpatient R [facility] [id number] Univers 14:00:00 14:00:00 ity [facility] 2020-11-30 2020-11-30 [facility] [id number] Univers 11:05:56 12:02:03 Kathleen Bejarano 350.1.13.10 it[place] [phone] [address] 2020-11-30 2020-11-30 [facility] [id number] 3Q-20 Univers 11:00:00 11:00:00 [facility] [id number] [facility] 2020-11-30 2020-11-30 [facility] [id number] Univers 11:00:00 11:00:00 [facility] 2020-11-30 2020-11-30 Orders Doctor SOLO 1.2.840.114 [id number] Univers 00:00:00 00:00:00 Only Unassigned, CANDICE 350.1.13.10 ity of [place] [facility] 4.2.7.2.686 Shaun as [phone] [address] 2020-11-03 2020-11-03 Refill Sonido Tpaia [facility] 1.2.260.244 [id number] Univers 00:00:00 00:00:00 Silvana Bejarano 350.1.13.10 i [place] [phone] [address] 2020-10-31 2020-11-01 Hospital Sonido Tapia [facility] 1.2.840.114 [id number] Univers 04:24:00 18:15:00 Encounter Silvana Bejarano 350.1.13.10 ity of [place] 4.2.7.2.686 [facility] [phone] [facility] 083 Branch 2020-10-31 2020-10-31 Anesthesia Zoie Butt T [facility] 1.2.8 40.114 [id number] Univers 13:50:00 16:46:00 Event Simon Zelaya Carlee 350.1.13.10 ity of [place] 4.2.7.2.686 [facility] [phone] [place] [id number] Branch 2020-10-31 2020-10-31 Anesthesia Filomena [facility] 1.2.840.114 [id number] Univers 07:59:41 07:59:41 Event Claudiafletcher Bright Carlee 350.1.13.10 ity of [place] 4.2.7.2.686 [facility] [phone] [facility] 083 [place] 2020-10-31 2020-10-31 Orders Doctor BANDA 1.2.840.114 [id number] Univers 00:00:00 00:00:00 Only Unassigned, CANDICE 350.1.13.10 ity of [place] [facility] 4.2.7.2.686 Shaun [phone] [facility] 009 Branch 2020-10-27 2020-10-27 Laboratory Only, Adc Test [facility] 1.2.840. 114 [id number] Univers 13:34:39 13:49:39 Only Kathleen Benavides 350.1.13.10 ity of [place] 4.2.7.2.686 [facility] [phone] [facility] 353 Branch 2020-10-27 2020-10-27 Outpatient R [facility] [id number] Univers 13:30:00 13:30:00 [id number] ity of [facility] 2020-10-27 2020-10-27 Outpatient R KENNEDY [facility] [id number] Univers 13:30:00 13:30:00 KATHLEEN ittrupti [facility] 2020-10-27 2020-10-27 Orders Doctor BANDA 1.2.840.114 [id number] Univers 00:00:00 00:00:00 Only Unassigned, CANDICE 350.1.13.10 ity of [place] [facility] 4.2.7.2.686 Shaun as [phone] [address] 2020-10-26 2020-10-26 Routine [facility] 1.2.259.908 [id number] Univers 11:36:26 11:51:26 Kathleen Bejarano 350.1.13.10 [place] [phone] [address] 2020-10-26 2020-10-26 Outpatient R KENNEDY [facility] [id number] Univers 11:30:00 11:30:00 KATHLEEN [id number] ity [facility] 2020-10-26 2020-10-26 Outpatient R KENNEDY [facility] [id number] Univers 11:30:00 11:30:00 [facility] 2020-10-26 2020-10-26 Orders Doctor BANDA 1.2.840.114 [id number] Univers 00:00:00 00:00:00 Only Unassigned, CANDICE 350.1.13.10 [email or web address] 4.2.7.2.686 Shaun as [phone] [address] 2020-10-19 2020-10-19 Routine [facility] 1.2.438.711 [id number] Univers 14:07:27 15:04:33 Silvana [place] 350.1.13.10 [place] [phone] [address] 2020-10-19 2020-10-19 Outpatient R SONIDO TAPIA [facility] [id number] 3Q-20 Univers 14:00:00 14:00:00 [id number] ity [facility] 2020-10-19 2020-10-19 Outpatient Adonis TAPIA SONIDO [facility] [id number] Univers 14:00:00 14:00:00 ity [facility] 2020-10-05 2020-10-05 Applique Cutter 2, Adc Lab [facility] 1.2.840.114 [id number] Univers 15:10:54 15:25:54 Visit Kathleen Benavides 350.1.13.10 [place] [phone] Ct dical [facility] 353 [facility] 2020-10-05 2020-10-05 [facility]ine [facility] 1.2.777.472 [id number] Univers 14:17:04 14:32:04 Kathleen Bejarano 350.1.13.10 [place] [phone] [facility] 134 [facility] 2020-10-05 2020-10-05 Outpatient SONIDO GARDNER [facility] [id number] 3Q-20 Univers 14:15:00 14:15:00 [id number] ity [facility] 2020-10-05 2020-10-05 Outpatient SONIDO GARDNER [facility] [id number] Univers 14:15:00 14:15:00 ity of [facility] 2020-10-05 2020-10-05 Outpatient R KENNEDY [facility] [id number] Univers 14:15:00 14:15:00 KATHLEEN ity [facility] 2020-10-05 2020-10-05 Orders Doctor SOLO 1.2.840.114 [id number] Univers 00:00:00 00:00:00 Only Unassigned, CANDICE 350.1.13.10 ity of [place] [facility] 4.2.7.2.686 Shaun as [phone] [address] 2020-09-21 2020-09-21 Routine [facility] 1.2.131.680 [id number] Univers 14:10:10 14:25:10 Kathleen Bejarano 350.1.13.10 [place] [phone] Ct dical [facility] 134 [facility] 2020-09-21 2020-09-21 Outpatient Adonis BENAVIDES [facility] [id number] 3Q-20 Univers 14:15:00 14:15:00 KATHLEEN [id number] ity [facility] 2020-09-21 2020-09-21 Outpatient R KENNEDY [facility] [id number] Univers 14:15:00 14:15:00 [facility] 2020-09-07 2020-09-07 Routine [facility] 1.2.320.523 [id number] Univers 13:32:33 14:18:29 Silvana Chanelton 350.1.13.10 [place] [phone] [address] 2020-09-07 2020-09-07 Outpatient R WILLIE SONIDO [facility] [id number] 3Q-20 Univers 13:45:00 13:45:00 [id number] ity [facility] 2020-09-07 2020-09-07 Outpatient R WILLIE [facility] [id number] Univers 13:45:00 13:45:00 ity [facility] 2020-09-07 2020-09-07 Letter [facility] 1.2.460.367 [id number] Univers 00:00:00 00:00:00 (Out) Silvana Chanelton 350.1.13.10 i [place] [phone] [address] 2020-08-09 2020-08-09 [facility] 1.2.466.581 [id number] Univers 13:08:41 14:08:40 Kathleen Bejarano 350.1.13.10 [place]y [place] [phone] [address] 2020-08-09 2020-08-09 Outpatient Adonis BENAVIDES [facility] [id number] 3Q-20 Univers 13:30:00 13:30:00 KATHLEEN [id number] [facility] 2020-08-09 2020-08-09 Outpatient Adonis BENAVIDES [facility] [id number] Univers 13:30:00 13:30:00 KATHLEEN ity [facility] 2020-08-09 2020-08-09 Applique Cutter 2, Adc Lab [facility] 1.2.840.114 [id number] Univers 11:30:55 11:45:55 Visit Sonido Tapia 350.1.13.10 [place] [phone] Ct dical nal 353 [facility] 2020-07-12 2020-07-12 Routine Sonido Tapia [facility] 1.2.236.876 [id number] Univers 10:50:20 11:05:20 Silvana Chanelton 350.1.13.10 [place] [phone] Ct dical nal 134 [facility] 2020-07-12 2020-07-12 Outpatient SONIDO TAPIA [facility] [id number] 3Q-20 Univers 11:00:00 11:00:00 [id number] ity [facility] 2020-07-12 2020-07-12 Outpatient R SONIDO TAPIA [facility] [id number] Univers 11:00:00 11:00:00 ity [facility] 2020-06-23 2020-06-23 Applique Cutter Ultrasound, Adc [facility] 1.2 .840.114 [id number] Univers 13:53:43 14:53:43 Visit David Pineda 350.1.13.10 [place] [phone] Ct dical [facility] 134 [facility] 2020-06-23 2020-06-23 Outpatient R [facility] [id number] Univers 14:00:00 14:00:00 [id number] ity [facility] 2020-06-23 2020-06-23 Outpatient P [facility] [id number] Univers 14:00:00 14:00:00 ity [facility] 2020-06-14 2020-06-14 Routine Kennedy [facility] 1.2.937.427 [id number] Univers 13:11:39 13:38:11 Kathleen Carlee 350.1.13.10 [place] [phone] Ct dicalejandra jiang [address] [place] [address] 2020-06-14 2020-06-14 Outpatient R KENDALLYEHUDACHAVEZ [facility] [id number] 3Q-20 Univers 13:00:00 13:00:00 KATHLEEN [id number] ity [facility] 2020-06-14 2020-06-14 Outpatient R KENNEDY [facility] [id number] Univers 13:00:00 13:00:00 KATHLEEN ity [facility] 2020-05-17 2020-05-17 Applique Cutter 2, Adc Lab [facility] 1.2.840.114 [id number] Univers 13:54:40 14:09:40 Visit Willie Sonidoalma Bejarano 350.1.13.10 [place] [phone] [facility] [address] [place] [address] 2020-05-17 2020-05-17 Routine Sonido Tapia [facility] 1.2.407.920 [id number] Univers 13:12:10 13:27:10 Silvana Bejarano 350.1.13.10 [place] [phone] [facility] deidre [address] [place] [address] 2020-05-17 2020-05-17 Outpatient R SONIDO TAPIA [facility] [id number] 3Q-20 Univers 13:15:00 13:15:00 [id number] ity of [facility] 2020-05-17 2020-05-17 Outpatient R WILLIE SONIDO [facility] [id number] Univers 13:15:00 13:15:00 ity of [facility] 2020-05-03 2020-05-03 Telephone Sonido Tapia [facility] 1.2.840.114 [id number] Univers 00:00:00 00:00:00 Silvana Bejarano 350.1.13.10 i [place] [phone] [address] 2020-04-24 2020-04-24 Telephone Sonido Tapia [facility] 1.2.840.114 [id number] Univers 00:00:00 00:00:00 Silvana Bejarano 350.1.13.10 i [place] [phone] Ct dical [facility] 134 [facility] 2020-04-19 2020-04-19 Applique Cutter 2, Adc Lab [facility] 1.2.840.114 [id number] Univers 12:14:24 12:29:24 Visit Sonido Tapia Silvana Bejarano 350.1.13.10 [place] [phone] [facility] 353 [facility] 2020-04-19 2020-04-19 Routine Kennedy [facility] 1.2.516.408 [id number] Univers 11:25:58 11:40:58 Kathleen Bejarano 350.1.13.10 [place] [phone] [facility] 134 [facility] 2020-04-19 2020-04-19 Outpatient R KENNEDY [facility] [id number] 3Q-20 Univers 11:15:00 11:15:00 KATHLEEN [id number] ity [facility] 2020-04-19 2020-04-19 Outpatient R KENNEDY [facility] [id number] Univers 11:15:00 11:15:[facility] 2020-04-19 2020-04-19 Outpatient R [facility] [id number] Univers 10:45:00 10:45:00 ity of [facility] 2020-04-19 2020-04-19 Orders Doctor BANDA 1.2.840.114 [id number] Univers 00:00:00 00:00:00 Only Unassigned, CANDICE 350.1.13.10 ity of [place] [facility] 4.2.7.2.686 Shaun as [phone] [address] 2020-04-14 2020-04-14 Telephone Sonido Tapia [facility] 1.2.840.114 [id number] Univers 00:00:00 00:00:00 Silvana Bejarano 350.1.13.10 [place] [phone] Ct dical nal 134 [facility] 2020-04-13 2020-04-13 Case Sonido Tapia [facility] 1.2.402.772 [id number] Univers 00:00:00 00:00:00 Management Cam [place] 350.1.13.10 [place] [phone] Ct dical nal 134 [facility] 2020-04-04 2020-04-04 Orders Doctor SOLO 1.2.840.114 [id number] Univers 00:00:00 00:00:00 Only Unassigned, CANDICE 350.1.13.10 ity of [place] [facility] 4.2.7.2.686 Shaun as [phone] [address] 2020-03-23 2020-03-23 Case Kendallyehudachavez [facility] 1.2.551.792 [id number] Univers 00:00:00 00:00:00 Management Kathleen [place] 350.1.13.10 [place] [phone] Ct dical nal [address] [place] [address] 2020-03-23 2020-03-23 Case Kennedy [facility] 1.2.031.850 [id number] Univers 00:00:00 00:00:00 Management Kathleen [place] 350.1.13.10 [place] [phone] Ct dical nal [address] [place] [address] 2020-03-22 2020-03-22 Initial Sonido Tapia [facility] 1.2.441.895 [id number] Univers 14:05:06 15:30:30 Cam [place] 350.1.13.10 ity [place]2.[place] [phone] Ct dical nal [address] [place] [address] 2020-03-22 2020-03-22 Outpatient R TAPIASONIDO [facility] [id number] 3Q-20 Univers 14:00:00 14:00:00 [id number] ity of [facility] 2020-03-22 2020-03-22 Outpatient R SONIDO TAPIA [facility] [id number] Univers 14:00:00 [facility]:00:[facility] 2020-03-22 2020-03-22 Orders Doctor SOLO 1.2.840.114 [id number] Univers 00:00:00 00:00:00 Only Unassigned, CANDICE 350.1.13.10 [email or web address] 4.2.7.2.686 Shaun as [phone] [address] 2019-11-05 2019-11-05 Patient Sonido Tapia [facility] 1.2.409.799 [id number] Univers 00:00:00 00:00:00 Secure Msg Cam [place] 350.1.13.10 [place] [phone] Ct dical [address] 2019-11-05 2019-11-05 Patient Sonido Tapia [facility] 1.2.556.846 [id number] 00:00:00 00:00:00 Secure Msg Cam [place] 350.1.13.10 [place] 4.2.7.2.686 Professio [phone] [address] 2019-09-02 2019-09-02 Outpatient Adonis BENAVIDES [facility] [id number] 3Q-20 Univers 13:00:00 13:00:00 KATHLEEN [facility] 2019-09-02 2019-09-02 Outpatient Adonis BENAVIDES [facility] [id number] Univers 13:00:00 13:00:00 KATHLEEN [facility] 2019-08-23 2019-08-23 Outpatient Adonis BENAVIDES [facility] [id number] 3Q-20 Univers 15:30:00 15:30:00 KATHLEEN [id number] [facility] 2019-08-23 2019-08-23 Outpatient Adonis BENAVIDES [facility] [id number] Univers 15:30:00 15:30:00 KATHLEEN [facility] 2019-08-19 2019-08-19 Outpatient Adonis BENAVIDES [facility] [id number] Univers 13:00:00 13:00:00 KATHLEEN [facility] 2019-02-18 2019-02-18 Routine Sonido Tapia [facility] 1.2.399.555 [id number] [facility] 13:05:35 13:56:52 Cam [place] 350.1.13.10 [place]y of [place] [phone] Ct dic[address] 2019-02-18 2019-02-18 Routine Sonido Tapia [facility] 1.2.381.847 [id number] 13:05:35 13:56:52 Cam [place] 350.1.13.10 Visit [place] 4.2.7.2.686 Professio [phone] [address] 2019-01-25 2019-01-25 Patient Gabriela ALCHRISTIANO 1.2.840.114 [id number] Univers 00:00:00 00:00:00 Secure Msg Mindy A [place] 350.1.13.10 [place] [phone] [address] 2019-01-25 2019-01-25 Patient Gabriela [facility] 1.2.840.114 [id number] 00:00:00 00:00:00 Secure Msg Mindy A [place] 350.1.13.10 [place] 4.2.7.2.686 Professio [phone] [address] 2019-01-23 2019-01-23 Emergency Ty [facility] 1.2.255.855 [id number] [facility] 20:01:44 21:16:00 Km A [place] 350.1.13.10 i ty [place] 4.2.7.2.686 [place] [id number] [address] 2019-01-23 2019-01-23 [facility] [id number] 20:01:44 21:16:00 Km A [place] 350.1.13.10 [place] 4.2.7.2.686 [place] [phone] [facility] 2019-01-23 2019-01-23 Nurse SOLO Sutton [id number] 00:00:00 00:00:00 Triage Aneatrice CANDICE 350.1.13.10 ity of HOSPITAL 4.2.7.2.686 Shaun as [phone] [address] 2019-01-23 2019-01-23 Nurse SOLO Sutton 1.2.840.114 [id number] 00:00:00 00:00:00 Triage Aneatrice CANDICE 350.1.13.10 HOSPITAL [id number] [facility] 2019-01-19 2019-01-21 [facility] Sonido Tapia [facility] 1.2.840.114 [id number] [facility] 14:51:41 12:50:00 Encounter Cam [place] 350.1.13.10 [place] [phone] [address] 2019-01-19 2019-01-21 [facility] Sonido Tapia [facility] 1.2.840.114 [id number] 14:51:41 12:50:00 Encounter Cam [place] 350.1.13.10 [place] 4.2.7.2.686 [place] [phone] [facility] 2019-01-21 2019-01-21 [facility] 1.2.840.114 [id number] Univers 00:00:00 00:00:00 Secure Msg Mindy A [place] 350.1.13.10 [place] [phone] Ct dical [address] 2019-01-21 2019-01-21 Patient Gabriela [facility] 1.2.840.114 [id number] 00:00:00 00:00:00 Secure Msg Mindy A [place] 350.1.13.10 [place] 4.2.7.2.686 Professio [phone] [address] 2019-01-14 2019-01-14 Routine Sonido Tapia [facility] 1.2.962.131 [id number] [facility] 11:18:36 12:23:47 Cam [place] 350.1.13.10 ity of [place] [phone] [address] 2019-01-14 2019-01-14 Routine Sonido Tapia [facility] 1.2.670.515 [id number] 11:18:36 12:23:47 Cam Car[place] 350.1.13.10 Visit [place] 4.2.7.2.686 Professio [phone] [address] 2019-01-06 2019-01-06 Applique Cutter Ultrasound, [facility] 1.2 .840.114 [id number] [facility] 15:28:11 15:54:20 Visit Tino Glasgow PHYSICIAN REPRESENTATIVE 350.1.13.10 ity of [facility] 4.2.7.2.686 Shaun as MATERNAL [phone] Med ical & CHILD [address] [place] [address] 2019-01-06 2019-01-06 Applique Cutter Ultrasound, [facility] 1.2.840.114 [id number] 15:28:11 15:54:20 Visit [facility] PHYSICIAN REPRESENTATIVE 350.1.13.10 REGIONAL 4.2.7.2.686 MATERNAL [phone] & CHILD [address] [place] [address] 2019-01-04 2019-01-04 Applique Cutter 1, Adc Lab [facility] 1.2.840.114 [id number] [facility] 12:12:21 12:27:21 Visit Kathleen Benavides 350.1.13.10 [place] of [place] [phone] [address] 2019-01-04 2019-01-04 Applique Cutter 1, Adc Lab [facility] 1.2.840.114 [id number] 12:12:21 12:27:21 Visit Carlee 350.1.13.10 [place] 4.2.7.2.686 [place] [phone] [facility] 2019-01-04 2019-01-04 Routine Kennedy [facility] [id number] [id number] [facility] 11:01:16 11:46:36 Kathleen Bejarano 350.1.13.10 ity of Visit [place] 4[place]2.[place] [phone] [address] 2019-01-04 2019-01-04 Routine Kennedy, [facility] 1.2.694.421 [id number] 11:01:16 11:46:36 Kathleen Bejarano 350.1.13.10 Visit [place] 4.2.7.2.686 Professio [phone] [address] 2019-01-04 2019-01-04 Orders Doctor SOLO 1.2.840.114 [id number] Univers 00:00:00 00:00:00 Only Unassigned, CANDICE 350.1.13.10 ity of [place] 4.2.7.2.686 Shaun as [phone] Medi [address] 2019-01-04 2019-01-04 Orders Doctor SOLO 1.2.840.114 [id number] 00:00:00 00:00:00 Only Unassigned, CANDICE 350.1.13.10 [place] [facility] 4.2.7.2.686 [phone] 009 Results Test Description Test Time Test Comments Results Result Comments Source POCT TEST 2020-11-30 16:38:00 Test Item Value Reference Range Interpretation Comme nts POCT PREG (test code = 1605) Negative On board controls acceptable with C Line (test code = 3574) Yes POCT PREG LOT # (test code = 3575) POCT PREG TEST DATE (test code = 3576) Lab Interpretation (test code = 56438-9) Normal [facility] with [id number] 11:38:00 Test Item Value Reference Range Interpretation Comments WBC (test code = See_Comment H [Automated 0090-2) message] The system which generated this result transmit hamlet reference range : 4.30 - 11.10 10*3/?L. The reference range was not used to interpret this result as normal/abnormal . RBC (test code = See_Comment L [Automated 819-8) message] The system which generated this result transmit hamlet reference range : 3.93 - 5.25 10*6/?L. The reference range was not used to interpret this result as normal/abnormal . HGB (test code = 9.1 g/dL 11.6-15.0 L 718-7) HCT (test code = 29.0 % 35.7-45.2 L 4544-3) MCV (test code = 81.7 fL 80.6-95.5 787-2) MCH (test code = 25.6 pg 25.9-32.8 L 785-6) MCHC (test code = 31.4 g/dL 31.6-35.1 L 786-4) RDW-SD (test code = 44.5 fL 39.0-49.9 21121-0) RDW-CV (test code = 14.9 % 12.0-15.5 788-0) PLT (test code = See_Comment [Automated 777-3) message] The system which generated this result transmit hamlet reference range : 166 - 358 10*3/ ?L. The reference range was not u sed to interpret th is result as normal/abnormal . MPV (test code = 9.9 fL 9.5-12.9 46880-9) NRBC/100 WBC (test See_Comment [Automat ed code = 8397964589) message] The system which generated this result transmit hamlet reference range : 0.0 - 10.0 /100 WBCs. The reference range was not used to interpret this result as normal/abnormal . NRBC x10^3 (test code <0.01 See_Comment [Auto mated = 4002921329) message] The system which generated this result transmit hamlet reference range : 10*3/?L. The reference range was not used to interpret this result as normal/abnormal . GRAN MAT (NEUT) % 80.4 % (test code = 770-8) IMM GRAN % (test code 0.40 % = 3814345990) LYMPH % (test code = 11.6 % 736-9) MONO % (test code = 7.4 % 5905-5) EOS % (test code = 0.1 % 713-8) BASO % (test code = 0.1 % 706-2) GRAN MAT x10^3(ANC) 11.07 10*3/uL 1.88-7.09 H (test code = 2382288620) IMM GRAN x10^3 (test 0.05 10*3/uL 0.00-0.06 code = 9906935717) LYMPH x10^3 (test code 1.60 10*3/uL 1.32-3.29 = 731-0) MONO x10^3 (test code 1.02 10*3/uL 0.33-0.92 H = 742-7) EOS x10^3 (test code = <0.03 0.03-0.39 L 711-2) BASO x10^3 (test code <0.03 0.01-0.07 = 704-7) Lab Interpretation Abnormal (test code = 87387-9) [facility] [facility] - [id number] 07:05:57 Test Item Value Reference Range Interpretation Comments RPR (Qualitative) (test code = Nonreactive Nonreactive 01765-3) Lab Interpretation (test code = Normal 23980-0) [facility] IMMUNE [id number] 00:51:30 Test Item Value Reference Range Interpretation Comments RHIG CANDIDATE? No- see comment Patient i s not a (test code = candidate for R [facility]- 5055) Patient is Rh Positive.Perfor med at [facility] Laboratory Services - [facility] Blood [address] [place], [place] [address]Toll Free: [phone] A No. [id number] [facility] HospitalVenous Cord [id number] 20:20:48 Test Item Value Reference Range Interpretation Comments VENOUS BASE EXCESS, mEq/L CORD (test code = 6812238708) VENOUS PH, CORD (test 7.25-7.45 code = 7955870448) VENOUS PC02, CORD See_Comment [Automate d message] The (test code = system which ge nerated 3337603648) this result tra nsmitted reference range : 27 - 49 mmHg. The refer ence range was not used to interpret this result as normal/abnormal . VENOUS PO2, CORD (test See_Comment [Aut omated message] The code = 4380349808) system wh ich generated this result tra nsmitted reference range : 17 - 41 mmHg. The refer ence range was not used to interpret this result as normal/abnormal . VENOUS BICARBONATE, See_Comment [Automa hamlet message] The CORD (test code = system whi ch generated 0899962591) this result tra nsmitted reference range : 12 - 29 mEq/L. The refe rence range was not used to interpret this result as normal/abnormal . [facility] HospitalArterial Cord [id number] 20:17:59 Test Item Value Reference Range Interpretation Comments BASE EXCESS, CORD mEq/L (test code = 6929412869) AC PH, CORD (BEAKER) 7.18-7.38 (test code = 4334272346) PC02, CORD (test code See_Comment [Auto mated message] The = 4447380352) system which g enerated this result transmit hamlet reference range : 32 - 66 mmHg. The refer ence range was not used to interpret this result as normal/abnormal . PO2, CORD (test code See_Comment [Autom ated message] The = 4558586104) system which g enerated this result transmit hamlet reference range : 10 - 30 mmHg. The refer ence range was not used to interpret this result as normal/abnormal . BICARBONATE, CORD See_Comment [Automate d message] The (test code = system which ge nerated this 7057288992) result transmit hamlet reference range : 17 - 27 mEq/L. The refe rence range was not used to interpret this result as normal/abnormal . [facility] [id number] 19:53:21 Simon Zelaya MD ? ? 10/31/2020 ?3:36 PM Central Neuraxial Block Performed by: Zoie Butt CRNAAuthorized by: Simon Zelaya MD Patient Location: OBStart Time: 10/31/2020 2:08 PMEnd Time: 10/31/2020 2:30 PMReason for Block: OB request, Patient request and Labor analgesiaStaff: ?Anesthesiologist: Simon Zelaya MD ?Resident/SNATH HANDLE ASSEMBLER: Zoie Butt CRNA ?Performed by: anesthesiologist and resident/CRNAPreanesthetic Checklist: patient identified, IV checked, risks and benefits explained, monitors and equipment checked, timeout performed, ob surgical consent/approval, pre-op evaluation, surgical consent, site marked and anesthesia consentProcedure: ?Type of Neuraxial: Epidural and Continuous ?Patient Position: sitting ?Prep: Betadine and patient draped ? ?Monitoring: cardiac cath technologist / EKG, heart rate, continuous pulse ox and heart rate / toco ?Location: lumbar (1-5) ?Lumbar: L3-L4 ?Approach: midline ? ?Technique: ALYCIA salineEpidural/Spinal [place] and/or Catheter: ?Epidural/Spinal Kit: BBraun ?Needle Type: Tuohy ?Needle Gauge: 17 G ?Needle Length: 3.5 in (8.89 cm) ?Needle Insertion Depth: 6.5 ?Catheter Type: end hole ? ?Catheter Size: 19 G ? ?Catheter at Skin Depth: 11.5 ?Number of Attempts: 2 ?Test Dose: lidocaine 1.5% with epinephrine 1-to-200,000 and negative ? ?Dose: 5 cc ? ?Catheter Securement Method: clear occlusive dressing, surgical tape, Tegaderm and liquid medical adhesiveAssessment: ?Sensory Level: above T10 ?Block Outcome: pain improved ? ?Procedure Assessment: patient tolerated procedure well with no complicationsNotes: ? Pt tolerated procedure well. No complications noted.[facility] HospitalHepatitis B Surface [id number] 16:48:10 Test Item Value Reference Range Interpretation Comments HBsAg Semi-Quantitative (test code = Negative Negative 5195-3) [facility] HospitalHIV 1/2 AG-AB WITH [id number] 13:02:29 Test Item Value Reference Range Interpretation Comments HIV Negative Negative Semi-quantitative (test code = 11236-5) FRANTZ (test code = Non-reactive for HIV-1 RFANTZ) antigen and HIV-1/HIV-2 antibodies. ?No laboratory evidence of HIV infection. ?Repeat in 2-4 weeks if acute HIV infection is suspected. [facility] HospitalType and Screen - ONCE [id number] 12:17:29 Test Item Value Reference Range Interpretation Comments ABO & RH (test code O Positive Performe d at [facility] = 20) Laboratory [facility] Blood [facility] [address] [place] [phone] Free: [phone] A No. [id number] IAT (test code = Negative Performed a t [facility] 1185) Laboratory [facility] [address] [place] [address]Mdgo Free: [phone] A No. [id number] [facility] HospitalCBC with [id number] 11:31:27 Test Item Value Reference Range Interpretation Comments WBC (test code = See_Comment [Automated 6690-2) message] The sy stem which generated this result transmitted reference range : 4.30 - 11.10 10*3/?L. The reference range was not used to interpret this result as normal/abnormal . RBC (test code = See_Comment L [Automated 789-8) message] The sy stem which generated this result transmitted reference range : 3.93 - 5.25 10*6/?L. The reference range was not used to interpret this result as normal/abnormal . HGB (test code = 9.6 g/dL 11.6-15.0 L 718-7) HCT (test code = 30.4 % 35.7-45.2 L 4544-3) MCV (test code = 81.5 fL 80.6-95.5 787-2) MCH (test code = 25.7 pg 25.9-32.8 L 785-6) MCHC (test code = 31.6 g/dL 31.6-35.1 786-4) RDW-SD (test code = 43.3 fL 39.0-49.9 74049-2) RDW-CV (test code = 14.8 % 12.0-15.5 788-0) PLT (test code = See_Comment [Automated 777-3) message] The sy stem which generated this result transmitted reference range : 166 - 358 10*3/ ?L. The reference r basil was not used to interpret this result as normal/abnormal . MPV (test code = 9.5 fL 9.5-12.9 87723-9) NRBC/100 WBC (test See_Comment [Automat ed code = 7322268999) message] The system which generated this result transmitted reference range : 0.0 - 10.0 /100 WBCs. The refer ence range was not u sed to interpret th is result as normal/abnormal . NRBC x10^3 (test code <0.01 See_Comment [Auto mated = 9271223275) message] The s ystem which generated this result transmitted reference range : 10*3/?L. The reference range was not used to interpret this result as normal/abnormal . GRAN MAT (NEUT) % 65.4 % (test code = 770-8) IMM GRAN % (test code 0.80 % = 4987645111) LYMPH % (test code = 22.3 % 736-9) MONO % (test code = 10.8 % 5905-5) EOS % (test code = 0.4 % 713-8) BASO % (test code = 0.3 % 706-2) GRAN MAT x10^3(ANC) 5.96 10*3/uL 1.88-7.09 (test code = 3370330523) IMM GRAN x10^3 (test 0.07 10*3/uL 0.00-0.06 H code = 3083414231) LYMPH x10^3 (test code 2.03 10*3/uL 1.32-3.29 = 731-0) MONO x10^3 (test code 0.98 10*3/uL 0.33-0.92 H = 742-7) EOS x10^3 (test code = 0.04 10*3/uL 0.03-0.39 711-2) BASO x10^3 (test code 0.03 10*3/uL 0.01-0.07 = 704-7) Lab Interpretation Abnormal (test code = 88230-5) [facility] URINALYSIS W/O SPECIFIC [id number] 16:53:00 Test Item Value Reference Range Interpretation Comments POCT PH U (test code = 3254) N/A 5-8 POCT U LEUK EST (test code = N/A Negative - Negative 3263) POCT U NIT (test code = 3262) N/A Negative - Negative POCT U PROT (test code = 3259) Negative Negative - Negative POCT U GLU (test code = 3256) Neagtive Negative - Negative POCT U KETONE (test code = 3258) N/A Negative - Negative POCT U BLD (test code = 3257) N/A Negative - Negative [facility] [id number] 19:41:00 Test Item Value Reference Range Interpretation Comments POCT PH U (test code = 3254) n/a 5-8 POCT U LEUK EST (test code = 3263) n/a Negative - Negative POCT U NIT (test code = 3262) n/a Negative - Negative POCT U PROT (test code = 3259) neg Negative - Negative POCT U GLU (test code = 3256) neg Negative - Negative POCT U KETONE (test code = 3258) n/a Negative - Negative POCT U BLD (test code = 3257) n/a Negative - Negative Lab Interpretation (test code = Normal 22175-9) [facility]>14 WEEKS US [id number] 19:51:40Cephalic presentationUnJoint venture between [facility]>14 W[facility]KS US [id number] 19:51:40Cephalic presentationUnJoint [facility] between [facility] ResourcesPOCT URINALYSIS W/O SPECIFIC [id number] 19:40:00 Test Item Value Reference Range Interpretation Comments POCT PH U (test code = 3254) N/A 5-8 POCT U LEUK EST (test code = N/A Negative - Negative 3263) POCT U NIT (test code = 3262) N/A Negative - Negative POCT U PROT (test code = 3259) Negative Negative - Negative POCT U GLU (test code = 3256) Negative Negative - Negative POCT U KETONE (test code = 3258) N/A Negative - Negative POCT U BLD (test code = 3257) N/A Negative - Negative [facility] URINALYSIS W/O SPECIFIC [id number] 19:40:00 Test Item Value Reference Range Interpretation Comments POCT PH U (test code = 3254) N/A 5-8 POCT U LEUK EST (test code = N/A Negative - Negative 3263) POCT U NIT (test code = 3262) N/A Negative - Negative POCT U PROT (test code = 3259) Negative Negative - Negative POCT U GLU (test code = 3256) Negative Negative - Negative POCT U KETONE (test code = 3258) N/A Negative - Negative POCT U BLD (test code = 3257) N/A Negative - Negative [facility] URINALYSIS W/O SPECIFIC [id number] 19:30:00 Test Item Value Reference Range Interpretation Comments POCT PH U (test code = 3254) n/a 5-8 POCT U LEUK EST (test code = 3263) n/a Negative - Negative POCT U NIT (test code = 3262) n/a Negative - Negative POCT U PROT (test code = 3259) neg Negative - Negative POCT U GLU (test code = 3256) neg Negative - Negative POCT U KETONE (test code = 3258) n/a Negative - Negative POCT U BLD (test code = 3257) n/a Negative - Negative [facility] URINALYSIS W/O SPECIFIC [id number] 18:45:00 Test Item Value Reference Range Interpretation Comments POCT PH U (test code = 3254) n/a 5-8 POCT U LEUK EST (test code = 3263) n/a Negative - Negative POCT U NIT (test code = 3262) n/a Negative - Negative POCT U PROT (test code = 3259) neg Negative - Negative POCT U GLU (test code = 3256) neg Negative - Negative POCT U KETONE (test code = 3258) n/a Negative - Negative POCT U BLD (test code = 3257) n/a Negative - Negative [facility] URINALYSIS W/O SPECIFIC [id number] 19:52:00 Test Item Value Reference Range Interpretation Comments POCT PH U (test code = 3254) n/a 5-8 POCT U LEUK EST (test code = 3263) n/a Negative - Negative POCT U NIT (test code = 3262) n/a Negative - Negative POCT U PROT (test code = 3259) neg Negative - Negative POCT U GLU (test code = 3256) neg Negative - Negative POCT U KETONE (test code = 3258) n/a Negative - Negative POCT U BLD (test code = 3257) n/a Negative - Negative Lab Interpretation (test code = Normal 29406-4) [facility] WITH [id number] 18:58:37 Test Item Value Reference Range Interpretation Comments WBC (test code = See_Comment [Automated 6690-2) message] The sy stem which generated this result transmitted reference range : 4.30 - 11.10 10*3/?L. The reference range was not used to interpret this result as normal/abnormal . RBC (test code = See_Comment L [Automated 789-8) message] The sy stem which generated this result transmitted reference range : 3.93 - 5.25 10*6/?L. The reference range was not used to interpret this result as normal/abnormal . HGB (test code = 10.6 g/dL 11.6-15.0 L 718-7) HCT (test code = 33.0 % 35.7-45.2 L 4544-3) MCV (test code = 88.7 fL 80.6-95.5 787-2) MCH (test code = 28.5 pg 25.9-32.8 785-6) MCHC (test code = 32.1 g/dL 31.6-35.1 786-4) RDW-SD (test code = 44.8 fL 39.0-49.9 60847-6) RDW-CV (test code = 13.7 % 12.0-15.5 788-0) PLT (test code = See_Comment [Automated 777-3) message] The sy stem which generated this result transmitted reference range : 166 - 358 10*3/ ?L. The reference r basil was not used to interpret this result as normal/abnormal . MPV (test code = 9.2 fL 9.5-12.9 L 27892-6) NRBC/100 WBC (test See_Comment [Automat ed code = 1342080800) message] The system which generated this result transmitted reference range : 0.0 - 10.0 /100 WBCs. The refer ence range was not u sed to interpret th is result as normal/abnormal . NRBC x10^3 (test code <0.01 See_Comment [Auto mated = 0215473586) message] The s ystem which generated this result transmitted reference range : 10*3/?L. The reference range was not used to interpret this result as normal/abnormal . GRAN MAT (NEUT) % 75.7 % (test code = 770-8) IMM GRAN % (test code 1.30 % = 6348454685) LYMPH % (test code = 15.0 % 736-9) MONO % (test code = 7.5 % 5905-5) EOS % (test code = 0.3 % 713-8) BASO % (test code = 0.2 % 706-2) GRAN MAT x10^3(ANC) 7.60 10*3/uL 1.88-7.09 H (test code = 2520085989) IMM GRAN x10^3 (test 0.13 10*3/uL 0.00-0.06 H code = 2696127011) LYMPH x10^3 (test code 1.51 10*3/uL 1.32-3.29 = 731-0) MONO x10^3 (test code 0.75 10*3/uL 0.33-0.92 = 742-7) EOS x10^3 (test code = 0.03 10*3/uL 0.03-0.39 711-2) BASO x10^3 (test code <0.03 0.01-0.07 = 704-7) Lab Interpretation Abnormal (test code = 20041-0) [facility] URINALYSIS W/O SPECIFIC [id number] 17:20:00 Test Item Value Reference Range Interpretation Comments POCT PH U (test code = 3254) n/a 5-8 POCT U LEUK EST (test code = 3263) n/a Negative - Negative POCT U NIT (test code = 3262) n/a Negative - Negative POCT U PROT (test code = 3259) neg Negative - Negative POCT U GLU (test code = 3256) neg Negative - Negative POCT U KETONE (test code = 3258) n/a Negative - Negative POCT U BLD (test code = 3257) n/a Negative - Negative [facility] URINALYSIS W/O SPECIFIC [id number] 19:26:00 Test Item Value Reference Range Interpretation Comments POCT PH U (test code = 3254) N/A 5-8 POCT U LEUK EST (test code = N/A Negative - Negative 3263) POCT U NIT (test code = 3262) N/A Negative - Negative POCT U PROT (test code = 3259) Negative Negative - Negative POCT U GLU (test code = 3256) Negative Negative - Negative POCT U KETONE (test code = 3258) N/A Negative - Negative POCT U BLD (test code = 3257) N/A Negative - Negative [facility] W/O SPECIFIC [id number] 19:37:00 Test Item Value Reference Range Interpretation Comments POCT PH U (test code = 3254) N/A 5-8 POCT U LEUK EST (test code = N/A Negative - Negative 3263) POCT U NIT (test code = 3262) N/A Negative - Negative POCT U PROT (test code = 3259) Negative Negative - Negative POCT U GLU (test code = 3256) Negative Negative - Negative POCT U KETONE (test code = 3258) N/A Negative - Negative POCT U BLD (test code = 3257) N/A Negative - Negative [facility] W/O SPECIFIC [id number] 17:38:00 Test Item Value Reference Range Interpretation Comments POCT PH U (test code = 3254) n/a 5-8 POCT U LEUK EST (test code = 3263) n/a Negative - Negative POCT U NIT (test code = 3262) n/a Negative - Negative POCT U PROT (test code = 3259) neg Negative - Negative POCT U GLU (test code = 3256) neg Negative - Negative POCT U KETONE (test code = 3258) n/a Negative - Negative POCT U BLD (test code = 3257) n/a Negative - Negative Lab Interpretation (test code = Normal 03434-4) [facility] OB [id number] 21:29:56- Limited USG for ?FHT: ?Single live IUP measured 6 6/7 weeks, not consistent with LMP. ?Will date by USG at help center done on 03/14/2020 unless clinically indicated otherwise Sonido Tapia MD ?03/22/2020 ?4:29 PMUnJoint [facility] ResourcesCOM. METABOLIC PANEL (45862)2019-01-24 02:05:00 Test Item Value Reference Range Interpretation Comments NA (test code = 140 mmol/L 135-145 0332877443) K (test code = 3.6 mmol/L 3.5-5 9794199080) CL (test code = 106 mmol/L 98-108 3495754967) CO2 TOTAL (test code = 25 mmol/L 23-31 3317622403) AGAP (test code = 2-16 4585134444) BUN (test code = 7 mg/dL 7-23 1070255093) GLUCOSE (test code = 88 mg/dL 70-110 6268853371) CREATININE (test code = 0.61 mg/dL 0.5-1.04 3037914818) TOTAL BILI (test code = 0.4 mg/dL 0.1-1.7 4671700811) CALCIUM (test code = 8.8 mg/dL 8.6-10.6 6741361279) T PROTEIN (test code = 7.3 g/dL 6.3-8.2 9297395772) ALBUMIN (test code = 3.8 g/dL 3.5-5 2172724290) ALK PHOS (test code = 205 U/L 34-122 H 1256779494) ALT(SGPT) (test code = 9 U/L 9-51 5388195023) AST(SGOT) (test code = 24 U/L 13-40 0385140057) eGFR Calculation mL/min/1.73m2 (Non-) (test code = 0120392369) eGFR Calculation mL/min/1.73m2 () (test code = 9421450423) FRANTZ (test code = FRANTZ) Association of Glomerular Filtration Rate (GFR) and Staging of Kidney Disease*+ + + +| GFR (mL/min/1.73 m2)?| With Kidney Damage?|?Without Kidney Damage+ --------+ --------+ +|?>90?|?S tage one?|? Normal?+ ---------+ ---------+ +|?60-89? |?Stage two?|? Decreased GFR? + --+ --+ ------+|?30-59?|?Stage three?|? Stage three? + --+ --+ ------+|?15-29?|?Stage four? |? Stage four?+ -------+ -------+ +|?<15 (or dialysis)?|?Stage five? |? Stage five?+ -------+ -------+ +*Each stage assumes the associated GFR level has been in effect for at least three months.?Stages 1 to 5, with or without kidney disease, indicate chronic kidney disease.Notes: Determination of stages one and two (with eGFR >59mL/min/1.73 m2) requires estimation of kidney damage for at least three months as defined by structural or functional abnormalities of the kidney, manifested by either:Pathological abnormalities or Markers of kidney damage (including abnormalities in the composition of the blood or urine or abnormalities in imaging tests). Lab Interpretation Abnormal (test code = 98099-2) [facility]00 Test Item Value Reference Range Interpretation Comments APPEARANCE (test code Slightly Cloudy Clear A = 7306029578) COLOR (test code = Yellow Yellow 1936709551) PH (test code = 4.8-8.0 2017843855) SP GRAVITY (test code 1.003-1.030 = 4967596560) GLU U QUAL (test code Negative Negative = 8182328286) BLOOD (test code = Large Negative A 4085147032) KETONES (test code = Negative Negative 0852628793) PROTEIN (test code = Negative Negative 2887-8) UROBILIN (test code = 0.2 mg/dL See_Comment [Auto mated 2756403984) message] The system which generated this result transmit hamlet reference range : 0-1.0 mg/dL. Th e reference range was not used to interpret this result as normal/abnormal . BILIRUBIN (test code Negative Negative = 5363146900) NITRITE (test code = Negative Negative 4223813295) LEUK DELICIA (test code Small Negative A = 3411140397) RBC/HPF (test code = See_Comment H [Autom ated 9623188491) message] The system which generated this result transmit hamlet reference range : 0 - 3 HPF. The reference range was not used to interpret this result as normal/abnormal . WBC/HPF (test code = See_Comment H [Autom ated 2515273111) message] The system which generated this result transmit hamlet reference range : 0 - 5 HPF. The reference range was not used to interpret this result as normal/abnormal . BACTERIA (test code = Moderate Negative A 0107025999) SQ EPITH (test code = HPF 8842629838) Lab Interpretation Abnormal (test code = 53461-7) [facility] Whole [id number] 01:45:00 Test Item Value Reference Range Interpretation Comments LACTIC ACID (test code = 1.27 mmol/L 0.5-2.2 3123146300) Lab Interpretation (test code = Normal 78641-9) [facility] WITH [id number] 01:43:00 Test Item Value Reference Range Interpretation Comments WBC (test code = See_Comment H [Automated 6690-2) message] The system which generated this result transmit hamlet reference range : 4.30 - 11.10 10*3/?L. The reference range was not used to interpret this result as normal/abnormal . RBC (test code = See_Comment L [Automated 789-8) message] The system which generated this result transmit hamlet reference range : 3.93 - 5.25 10*6/?L. The reference range was not used to interpret this result as normal/abnormal . HGB (test code = 10.6 g/dL 11.6-15 L 718-7) HCT (test code = 32.7 % 35.7-45.2 L 4544-3) MCV (test code = 88.6 fL 80.6-95.5 787-2) MCH (test code = 28.7 pg 25.9-32.8 785-6) MCHC (test code = 32.4 g/dL 31.6-35.1 786-4) RDW-SD (test code = 43.8 fL 39-49.9 85256-5) RDW-CV (test code = 13.6 % 12-15.5 788-0) PLT (test code = See_Comment [Automated 777-3) message] The system which generated this result transmit hamlet reference range : 166 - 358 10*3/ ?L. The reference range was not u sed to interpret th is result as normal/abnormal . MPV (test code = 9.2 fL 9.5-12.9 L 01018-0) NRBC/100 WBC (test See_Comment [Automat ed code = 0723363249) message] The system which generated this result transmit hamlet reference range : 0.0 - 10.0 /100 WBCs. The reference range was not used to interpret this result as normal/abnormal . NRBC x10^3 (test code <0.01 See_Comment [Auto mated = 8132527023) message] The system which generated this result transmit hamlet reference range : 10*3/?L. The reference range was not used to interpret this result as normal/abnormal . GRAN MAT (NEUT) % 86.9 % (test code = 770-8) IMM GRAN % (test code 0.90 % = 0869316215) LYMPH % (test code = 6.6 % 736-9) MONO % (test code = 4.8 % 5905-5) EOS % (test code = 0.5 % 713-8) BASO % (test code = 0.3 % 706-2) GRAN MAT x10^3(ANC) 11.51 10*3/uL 1.88-7.09 H (test code = 2442565450) IMM GRAN x10^3 (test 0.12 10*3/uL 0-0.06 H code = 5061070002) LYMPH x10^3 (test code 0.87 10*3/uL 1.32-3.29 L = 731-0) MONO x10^3 (test code 0.63 10*3/uL 0.33-0.92 = 742-7) EOS x10^3 (test code = 0.07 10*3/uL 0.03-0.39 711-2) BASO x10^3 (test code 0.04 10*3/uL 0.01-0.07 = 704-7) Lab Interpretation Abnormal (test code = 20631-8) [facility] WITH [id number] 08:54:00 Test Item Value Reference Range Interpretation Comments WBC (test code = See_Comment H [Automated 6690-2) message] The system which generated this result transmit hamlet reference range : 4.30 - 11.10 10*3/?L. The reference range was not used to interpret this result as normal/abnormal . RBC (test code = See_Comment L [Automated 579-8) message] The system which generated this result transmit hamlet reference range : 3.93 - 5.25 10*6/?L. The reference range was not used to interpret this result as normal/abnormal . HGB (test code = 8.7 g/dL 11.6-15 L 718-7) HCT (test code = 26.4 % 35.7-45.2 L 4544-3) MCV (test code = 88.9 fL 80.6-95.5 787-2) MCH (test code = 29.3 pg 25.9-32.8 785-6) MCHC (test code = 33.0 g/dL 31.6-35.1 786-4) RDW-SD (test code = 43.8 fL 39-49.9 33961-2) RDW-CV (test code = 13.6 % 12-15.5 788-0) PLT (test code = See_Comment [Automated 777-3) message] The system which generated this result transmit hamlet reference range : 166 - 358 10*3/ ?L. The reference range was not u sed to interpret th is result as normal/abnormal . MPV (test code = 9.6 fL 9.5-12.9 84612-8) NRBC/100 WBC (test See_Comment [Automat ed code = 4409572241) message] The system which generated this result transmit hamlet reference range : 0.0 - 10.0 /100 WBCs. The reference range was not used to interpret this result as normal/abnormal . NRBC x10^3 (test code <0.01 See_Comment [Auto mated = 1671214615) message] The system which generated this result transmit hamlet reference range : 10*3/?L. The reference range was not used to interpret this result as normal/abnormal . GRAN MAT (NEUT) % 79.0 % (test code = 770-8) IMM GRAN % (test code 0.90 % = 3748298116) LYMPH % (test code = 12.8 % 736-9) MONO % (test code = 6.8 % 5905-5) EOS % (test code = 0.3 % 713-8) BASO % (test code = 0.2 % 706-2) GRAN MAT x10^3(ANC) 12.60 10*3/uL 1.88-7.09 H (test code = 7579042364) IMM GRAN x10^3 (test 0.14 10*3/uL 0-0.06 H code = 3984724183) LYMPH x10^3 (test code 2.04 10*3/uL 1.32-3.29 = 731-0) MONO x10^3 (test code 1.08 10*3/uL 0.33-0.92 H = 742-7) EOS x10^3 (test code = 0.04 10*3/uL 0.03-0.39 711-2) BASO x10^3 (test code 0.03 10*3/uL 0.01-0.07 = 704-7) Lab Interpretation Abnormal (test code = 06960-7) [facility] OR [place] ONLY - [id number] 23:47:00 Test Item Value Reference Range Interpretation Comments Lab Interpretation (test code = Normal 11400-3) [facility] Cord [id number] 12:21:00 Test Item Value Reference Range Interpretation Comments VENOUS BASE EXCESS, mEq/L CORD (test code = 1977864324) VENOUS PH, CORD (test 7.25-7.45 code = 4878406184) VENOUS PC02, CORD See_Comment [Automate d message] The (test code = system which ge nerated 0276390778) this result tra nsmitted reference range : 27 - 49 mmHg. The refer ence range was not used to interpret this result as normal/abnormal . VENOUS PO2, CORD (test See_Comment [Aut omated message] The code = 3877254920) system [facility] generated this result tra nsmitted reference range : 17 - 41 mmHg. The refer ence range was not used to interpret this result as normal/abnormal . VENOUS BICARBONATE, See_Comment [Automa hamlet message] The CORD (test code = system [facility] ch generated 9247208552) this result tra nsmitted reference range : 12 - 29 mEq/L. The refe rence range was not used to interpret this result as normal/abnormal . [facility] [id number] 12:19:00 Test Item Value Reference Range Interpretation Comments BASE EXCESS, CORD mEq/L (test code = 9836411767) AC PH, CORD (BEAKER) 7.18-7.38 (test code = 0578022059) PC02, CORD (test code See_Comment [Auto mated message] The = 6134417874) system which g enerated this result transmit hamlet reference range : 32 - 66 mmHg. The refer ence range was not used to interpret this result as normal/abnormal . PO2, CORD (test code See_Comment [Autom ated message] The = 3592262387) system which g enerated this result transmit hamlet reference range : 10 - 30 mmHg. The refer ence range was not used to interpret this result as normal/abnormal . BICARBONATE, CORD See_Comment [Automate d message] The (test code = system which ge nerated this 9682453844) result transmit hamlet reference range : 17 - 27 mEq/L. The refe rence range was not used to interpret this result as normal/abnormal . [facility]Hepatitis B Surface [id number] 05:48:00 Test Item Value Reference Range Interpretation Comments HBsAg Semi-Quantitative (test code = 5195-3) [facility] OR [facility] ONLY - HIV TYPE 1 AND 2 ANTIBODY SCREEN WITH [id number] 02:51:00 Test Item Value Reference Range Interpretation Comments Lab Interpretation (test code = Normal 86502-4) [facility]Type [facility] Screen - ONCE [id number] 00:06:40 Test Item Value Reference Range Interpretation Comments ABO & RH (test code O Positive Performe d at [facility] = 20) Laboratory Serv [facility] [address] [place], [place] [address]Toll Free: [phone] A No. [id number] IAT (test code = Negative Performed a t [facility] 1185) Laboratory Serv [facility] [address] [place], [place] [address]Toll Free: [phone] A No. [id number] [facility] WITH [id number] 21:58:00 Test Item Value Reference Range Interpretation Comments WBC (test code = See_Comment [Automated 7190-2) message] The sy stem which generated this result transmitted reference range : 4.30 - 11.10 10*3/?L. The reference range was not used to interpret this result as normal/abnormal . RBC (test code = See_Comment L [Automated 569-8) message] The sy stem which generated this result transmitted reference range : 3.93 - 5.25 10*6/?L. The reference range was not used to interpret this result as normal/abnormal . HGB (test code = 10.6 g/dL 11.6-15 L 718-7) HCT (test code = 32.4 % 35.7-45.2 L 4544-3) MCV (test code = 89.5 fL 80.6-95.5 787-2) MCH (test code = 29.3 pg 25.9-32.8 785-6) MCHC (test code = 32.7 g/dL 31.6-35.1 786-4) RDW-SD (test code = 43.5 fL 39-49.9 24472-2) RDW-CV (test code = 13.4 % 12-15.5 788-0) PLT (test code = See_Comment [Automated 777-3) message] The sy stem which generated this result transmitted reference range : 166 - 358 10*3/ ?L. The reference r basil was not used to interpret this result as normal/abnormal . MPV (test code = 10.1 fL 9.5-12.9 17586-8) NRBC/100 WBC (test See_Comment [Automat ed code = 3369461058) message] The system which generated this result transmitted reference range : 0.0 - 10.0 /100 WBCs. The refer ence range was not u sed to interpret th is result as normal/abnormal . NRBC x10^3 (test code <0.01 See_Comment [Auto mated = 0169481289) message] The s ystem which generated this result transmitted reference range : 10*3/?L. The reference range was not used to interpret this result as normal/abnormal . GRAN MAT (NEUT) % 80.3 % (test code = 770-8) IMM GRAN % (test code 0.60 % = 4315513376) LYMPH % (test code = 13.8 % 736-9) MONO % (test code = 4.8 % 5905-5) EOS % (test code = 0.3 % 713-8) BASO % (test code = 0.2 % 706-2) GRAN MAT x10^3(ANC) 7.05 10*3/uL 1.88-7.09 (test code = 8633526701) IMM GRAN x10^3 (test 0.05 10*3/uL 0-0.06 code = 8381030047) LYMPH x10^3 (test code 1.21 10*3/uL 1.32-3.29 L = 731-0) MONO x10^3 (test code 0.42 10*3/uL 0.33-0.92 = 742-7) EOS x10^3 (test code = 0.03 10*3/uL 0.03-0.39 711-2) BASO x10^3 (test code <0.03 0.01-0.07 = 704-7) Lab Interpretation Abnormal (test code = 40029-3) [facility] W/O SPECIFIC [id number] 17:12:00 Test Item Value Reference Range Interpretation Comments POCT PH U (test code = 3254) n/a 5-8 POCT U LEUK EST (test code = 3263) n/a Negative - Negative POCT U NIT (test code = 3262) n/a Negative - Negative POCT U PROT (test code = 3259) trace Negative - Negative POCT U GLU (test code = 3256) neg Negative - Negative POCT U KETONE (test code = 3258) neg Negative - Negative POCT U BLD (test code = 3257) neg Negative - Negative Lab Interpretation (test code = Normal 98789-3) [facility] WITH [id number] 17:44:00 Test Item Value Reference Range Interpretation Comments WBC (test code = See_Comment [Automated 1790-2) message] The sy stem which generated this result transmitted reference range : 4.30 - 11.10 10*3/?L. The reference range was not used to interpret this result as normal/abnormal . RBC (test code = See_Comment L [Automated 059-8) message] The sy stem which generated this result transmitted reference range : 3.93 - 5.25 10*6/?L. The reference range was not used to interpret this result as normal/abnormal . HGB (test code = 10.4 g/dL 11.6-15 L 718-7) HCT (test code = 31.8 % 35.7-45.2 L 4544-3) MCV (test code = 89.6 fL 80.6-95.5 787-2) MCH (test code = 29.3 pg 25.9-32.8 785-6) MCHC (test code = 32.7 g/dL 31.6-35.1 786-4) RDW-SD (test code = 40.8 fL 39-49.9 68768-2) RDW-CV (test code = 12.3 % 12-15.5 788-0) PLT (test code = See_Comment [Automated 777-3) message] The sy stem which generated this result transmitted reference range : 166 - 358 10*3/ ?L. The reference r basil was not used to interpret this result as normal/abnormal . MPV (test code = 9.3 fL 9.5-12.9 L 67663-8) NRBC/100 WBC (test See_Comment [Automat ed code = 5424703948) message] The system which generated this result transmitted reference range : 0.0 - 10.0 /100 WBCs. The refer ence range was not u sed to interpret th is result as normal/abnormal . NRBC x10^3 (test code <0.01 See_Comment [Auto mated = 4213757074) message] The s ystem which generated this result transmitted reference range : 10*3/?L. The reference range was not used to interpret this result as normal/abnormal . GRAN MAT (NEUT) % 75.0 % (test code = 770-8) IMM GRAN % (test code 0.60 % = 1536522573) LYMPH % (test code = 14.8 % 736-9) MONO % (test code = 9.0 % 5905-5) EOS % (test code = 0.4 % 713-8) BASO % (test code = 0.2 % 706-2) GRAN MAT x10^3(ANC) 8.16 10*3/uL 1.88-7.09 H (test code = 6062262701) IMM GRAN x10^3 (test 0.07 10*3/uL 0-0.06 H code = 6996207890) LYMPH x10^3 (test code 1.61 10*3/uL 1.32-3.29 = 731-0) MONO x10^3 (test code 0.98 10*3/uL 0.33-0.92 H = 742-7) EOS x10^3 (test code = 0.04 10*3/uL 0.03-0.39 711-2) BASO x10^3 (test code <0.03 0.01-0.07 = 704-7) Lab Interpretation Abnormal (test code = 72694-5) [facility]/O SPECIFIC [id number] 16:23:00 Test Item Value Reference Range Interpretation Comments POCT PH U (test code = 3254) N/A 5-8 POCT U LEUK EST (test code = N/A Negative - Negative 3263) POCT U NIT (test code = 3262) N/A Negative - Negative POCT U PROT (test code = 3259) Trace Negative - Negative POCT U GLU (test code = 3256) Negative Negative - Negative POCT U KETONE (test code = 3258) N/A Negative - Negative POCT U BLD (test code = 3257) N/A Negative - Negative [facility] W/O SPECIFIC [id number] 16:23:00 Test Item Value Reference Range Interpretation Comments POCT PH U (test code = 3254) N/A 5-8 POCT U LEUK EST (test code = N/A Negative - Negative 3263) POCT U NIT (test code = 3262) N/A Negative - Negative POCT U PROT (test code = 3259) Trace Negative - Negative POCT U GLU (test code = 3256) Negative Negative - Negative POCT U KETONE (test code = 3258) N/A Negative - Negative POCT U BLD (test code = 3257) N/A Negative - Negative [facility]"
--- NOTE | 2021-05-21 12:48 | RAD REPORT ---
EXAM DESCRIPTION: MRI - Cholangiogram - 05/21/2021 12:27 pm CLINICAL HISTORY: Pancratitis, R/O choledocholithiasis COMPARISON: No comparisons FINDINGS: Three-dimensional MRCP was performed using maximum intensity projection reconstruction on the same work station. No intrahepatic biliary tree dilatation is seen. The common bile duct is normal caliber without evide nce of retained stone, stricture or mass. The pancreatic duct is not pathologically dilated. Cholelithiasis is present. A stone is impacted at the gallbladder neck. No pericholecystic fluid is i dentified. The cystic duct and common bile duct are normal in caliber. The gallbladder has an apparen t diverticulum containing a small stone arising from near the gallbladder neck and projecting inferio rly. Limited T2 sequences through the abdomen demonstrates no bulky adenopathy, significant free fluid or abscess. Hepatic steatosis. Right renal cyst. IMPRESSION: Cholelithiasis with stone impacted at the gallbladder neck but no evidence of choledocho lithiasis or biliary ductal dilatation. Note is made of a suspected gallbladder diverticulum near the gallbladder neck and containing a small stone. This is of doubtful clinical significance.
[2021-05-21 12:56] VITALS: BMI 24.2
[2021-05-21] MEDS: CEFOXITIN 1 GM in NA CHLORIDE 0.9% 50 ML IVPB SCH ×2 (14:44→18:00)
[2021-05-21] MEDS: NA CHLORIDE 0.9% 1,000 ML IV SCH (14:44)
--- NOTE | 2021-05-21 17:26 | HP ---
Date of Admission: 05/21/2021 History Of Present Illness: Ms. Hernandez is a 20-year-old patient comes to us with an initial diagnosis of a symptomatic cholelithiasis. She was in the ER several weeks ago with abdominal tenderness, at that moment also she was . So, she waited until this time and now came for laparoscopic poss ible open cholecystectomy. Today when she came to our ER, we noticed that the lipase was elevated. She had a lipase repeated several days ago and then right now it shows an increase from 700 to over 1 000. The etiology of that is unknown. She did not recall any trauma. She does not drink. She does not smoke. She does not take any major medications. She has history of seizures in the past. Past Medical History: Seizures. Past Surgical History: None. Medications: None. Allergies: NONE. Social History: Once again, she does not smoke, she does not drink alcohol. Review of Systems: Attacks in the past of nausea, vomiting, sometimes diarrhea, although today she is not nauseous and n ot vomiting. Chronic epigastric pain. Ten points otherwise unremarkable. No dysuria, hematuria, he matochezia, or melena. Physical Examination: General: The patient is awake and alert. HEENT: Pupils are equal and reactive. Anicteric. Neck: Supple. Chest: Clear. Abdomen: Epigastric mild tenderness. Breasts/Pelvic/Rectal: Deferred. Extremities: Good capillary refill. Neuro: Cranial nerves 2 through 12 grossly within normal limits. Laboratory Data: Blood work shows WBC count of 4.7, hemoglobin 11.5, lipase 1193, total bilirubin of 0.3. Potassium is 3.9. Ultrasound of the gallbladder shows multi-stone cholelithiasis with 60 mm r ound and echoic structure in the right kidney, patient with spleen. Assessment/plan: A 20-year-old patient with acute cholecystitis, symptomatic cholelithiasis, also ac tolowa dee-ni' pancreatitis. Lipase compared with 3 days ago was higher, 3 days ago was 700, right now is over 1000. Etiology of that is unknown. We are going to hold the surgery today. We are going to do some workup that included an MRCP to see if there is any stone in the common bile duct. We also request a GI consult, although I was informed by the hospital right now that we do not have any GI coverage. We are going to do just we are going to keep the patient n.p.o., we are going to do the MRCP to see how the pancreas looks, how the common bile duct looks and we asked her once again about any risk fac tor for pancreatitis and seems not to have any. We might have to postpone the surgery. If we see an y improvement and no bilirubin elevated, then we may proceed with surgery, but we are going to get he r some data in the next few hours. In the meantime, we have to keep her n.p.o., some bowel rest and trying to find etiology of that pancreatitis since it is getting worse. MADELYN/MODL Voice ID: [id number]
[2021-05-22] MEDS: NA CHLORIDE 0.9% 1,000 ML IV SCH ×3 (00:12→19:00)
[2021-05-22] MEDS: CEFOXITIN 1 GM in NA CHLORIDE 0.9% 50 ML IVPB SCH ×3 (00:12→11:40)
[2021-05-22 06:15] LABS: Absolute Lymphocytes (CBC) 1.5 K/uL (0.7-4.9); Basophils % 0.6 % (0-1.3); Hematocrit 32.9 % (36.0-45.0); Lymphocytes % 36.2 % (15.3-44.8); MPV 7.5 fL (7.6-11.3); RBC Red Blood Cell Count 3.97 M/uL (3.86-4.86)
[2021-05-22 06:33] LABS: ALT/SGPT 22 U/L (12-78); AST/SGOT 17 U/L (15-37); Albumin 3.2 g/dL (3.4-5.0); Alkaline Phosphatase 58 U/L (45-117); Amylase 127 U/L (25-115); BUN Blood Urea Nitrogen 9 mg/dL (7-18); Bicarbonate 21 mmol/L (21-32); Bilirubin Total 0.5 mg/dL (0.2-1.0); Glucose Level 71 mg/dL (74-106); Lipase 918 U/L (73-393); Potassium 3.6 mmol/L (3.5-5.1); Protein, Total 6.2 g/dL (6.4-8.2); Sodium Level 143 mmol/L (136-145)
[2021-05-22] MEDS ORDERED: Ringers Lactate 1,000 ML IV ONE (10:59)
[2021-05-22] MEDS ORDERED: propofoL 200 MG/20 ML VIAL IV ONE (11:10)
[2021-05-22] MEDS ORDERED: FENTANYL CITR 100 MCG/2 ML ONE (11:10)
[2021-05-22] MEDS ORDERED: MIDAZOLAM HCL 2 MG/2 ML INJ ONE (11:10)
[2021-05-22] MEDS ORDERED: dexAMETHasone 10 MG/ML VIAL ONE (11:10)
[2021-05-22] MEDS ORDERED: LIDOCAINE 2% MPF 5 ML VIAL ONE (11:10)
[2021-05-22] MEDS ORDERED: ROCURONIUM 50 MG/5 ML VIAL IV ONE (11:11)
[2021-05-22] MEDS ORDERED: ONDANSETRON 4 MG/2 ML VIAL ONE (11:11)
[2021-05-22] MEDS ORDERED: BUPIVACAINE 0.5% PF 10 ML VIAL ONE (11:15)
[2021-05-22] MEDS ORDERED: KETOROLAC 30 MG/ML INJ ONE (11:54)
[2021-05-22] MEDS ORDERED: GLYCOPYRROLATE 0.2 MG/ML SYR ONE (11:59)
[2021-05-22] MEDS ORDERED: NEOSTIGMINE 1 MG/ML -5 ML ONE (11:59)
--- NOTE | 2021-05-22 12:02 | P.BOP ---
Preoperative diagnosis: pancreatitis, Acute cholecystitis, symptomatic cholelithiaisis Postoperative diagnosis: same Primary procedure: Laparoscopic cholecystectomy Supply Chain Assistant: SPIKE FOSTER (SOFTBALL CORE MOLDER) Estimated blood loss: <10cc Specimen: gb Findings: as above Anesthesia: General Complications: None Transferred to: Recovery Room Condition: Good
[2021-05-22] MEDS ORDERED: MORPHINE 2 MG/ML SYR IV PRN (12:06)
[2021-05-22] MEDS ORDERED: HYDROCODONE/APAP 5/325 MG TAB PO PRN (12:06)
[2021-05-22 12:27] VITALS: O2SAT 100
--- NOTE | 2021-05-22 13:42 | OP ---
Date of Procedure: 05/22/2021 Surgeon: Juan Carlos Arvizu MD Petrol Tanker Driver: Inez Thompson. Preoperative Diagnoses: Pancreatitis, acute cholecystitis, symptomatic cholelithiasis. Postoperative Diagnoses: Pancreatitis, acute cholecystitis, symptomatic cholelithiasis. Procedure: Laparoscopic cholecystectomy. Estimated Blood Loss: Less than 10 mL. Specimen: Gallbladder. Anesthesia: General plus local. Indication: This is the case of a 20-year-old patient, who comes to us with pancreatitis, acute chol ecystitis, symptomatic cholelithiasis with a lipase at one point up to 1000. Today, the lipase is im proving. Case was postponed from yesterday with new findings of lipase some improvement. We have been looking as possible etiology of that and she is not using any drugs. She does not drin k alcohol. MRCP shows no evidence of choledocholithiasis. She has normal triglycerides. The only t mirta we had seen right now that she is taking hormones and that she discussed with her automobile assembly supervisor. I discussed the case with tow boat captain, Dr. Turpin who kindly accepted to see the patient as an outpatient since he is not here this week, but still the same plan is to continue when I discusse d with him the cholecystectomy and then after that, he will follow the patient as an outpatient since still gallbladder may be suspicious for this disease. She has history of acute cholecystitis with e pigastric pain on and off , so we discussed the case with her and she preferred to have the surgery done during this admission. Procedure In Detail: So, the patient was brought to the operating room and placed in supine position . Anesthesia was done without complication. Abdominal area was prepped and draped in the usual ster ile fashion. Marcaine 0.5% was injected for local anesthetic followed by sharp incision of the skin in the infraumbilical region. The incision was carried down to fascia, which was opened under direct vision. Peritoneum was encountered, opened under direct vision. Vicryl #1 placed inside the fascia . Antwan trocar was carefully introduced. Pneumoperitoneum was obtained. I placed 3 more trocars, 5 mm each one of them, 1 in epigastric area and 2 in the right upper quadrant using same technique wh ich consisted of local anesthetic, sharp incision of the skin, and introduction of the trocars under direct vision. This allowed me to put a grasper in the fundus of the gallbladder, another grasper in the infundibulum retracting the gallbladder in the inferolateral fashion, exposing the triangle of C alot and obtaining critical views. Cystic duct and cystic artery were clearly isolated, freed circum ferentially and a connection between those and the gallbladder was clearly identified. I proceeded t o ligate those by using 3 clips proximal, 1 clip distal, ligation in middle. Same was done with the cystic artery. No bile leak. No bleeding the gallbladder was removed from liver using Bovie cauteri zer and removed from abdominal cavity using EndoCatch through umbilical incision. The area was inspe cted once again. No bile leak. No bleeding. Gallbladder fossa with no bleeding. At that moment, I proceeded to remove the trocars under direct vision. Deflated the pneumoperitoneum. Closed the fas muriel with #1 Vicryl. Irrigated subcutaneous tissue, closed that with 3-0 chromic and skin in a subcut icular fashion with 3-0 chromic and Steri-Strips on top. Sponge count and instrument counts correct. The patient tolerated the procedure well. The patient was sent to the recovery in stable condition . Also advised by the tow boat captain, we are going to keep the patient overnight, give her hydra tion and repeat the blood work in the morning. MADELYN/ROSA Voice ID: [id number] Report ID: [id number]
[2021-05-23] MEDS: NA CHLORIDE 0.9% 1,000 ML IV SCH (05:03)
[2021-05-23 05:33] LABS: Absolute Lymphocytes (CBC) 1.5 K/uL (0.7-4.9); Basophils % 0.2 % (0-1.3); Hematocrit 34.4 % (36.0-45.0); MPV 7.6 fL (7.6-11.3); RBC Red Blood Cell Count 4.16 M/uL (3.86-4.86)
[2021-05-23 05:48] LABS: BUN Blood Urea Nitrogen 7 mg/dL (7-18); Bicarbonate 20 mmol/L (21-32); Glucose Level 91 mg/dL (74-106); Lipase 740 U/L (73-393); Sodium Level 142 mmol/L (136-145)
--- NOTE | 2021-05-23 12:20 | P.DS ---
Admission Date: 05/21/21 Discharge Date: 05/23/21 Disposition: ROUTINE DISCHARGE Discharge Condition: GOOD - Problems (1) Pancreatic abnormality Onset Date: ~05/21/21 Current Visit: Yes Status: Acute (2) Symptomatic cholelithiasis Onset Date: ~05/21/21 Current Visit: Yes Status: Acute Hospital Course: unremarkable Vital Signs/Physical Exam: Temp Pulse Resp BP Pulse Ox 97.3 F 77 16 99/53 L 99 05/23/21 08:00 05/23/21 08:00 05/23/21 08:00 05/23/21 08:00 05/23/21 08:00 General: Alert, In no apparent distress, Oriented x3, Cooperative HEENT: Normocephalic, PERRLA, EOMI Neck: Supple Respiratory: Clear to auscultation bilaterally Cardiovascular: No edema, Normal pulses Gastrointestinal: Soft and benign Musculoskeletal: No contractures, No erythema, No tenderness, No warmth Integumentary: No rashes, No breakdown, No erythema, No warmth, No cyanosis Neurological: Normal gait, Normal speech Laboratory Data at Discharge: WBC 10.10 K/uL (4.3-10.9) D 05/23/21 05:16 Hgb 11.1 g/dL (12.0-15.0) L 05/23/21 05:16 Hct 34.4 % (36.0-45.0) L 05/23/21 05:16 Plt Count 242 K/uL (152-406) 05/23/21 05:16 Sodium 142 mmol/L (136-145) 05/23/21 05:16 Potassium 4.0 mmol/L (3.5-5.1) 05/23/21 05:16 BUN 7 mg/dL (7-18) 05/23/21 05:16 Creatinine 0.65 mg/dL (0.55-1.3) 05/23/21 05:16 Glucose 91 mg/dL (74-106) 05/23/21 05:16 Total Bilirubin 0.5 mg/dL (0.2-1.0) 05/22/21 05:48 AST 17 U/L (15-37) 05/22/21 05:48 ALT 22 U/L (12-78) 05/22/21 05:48 Alkaline Phosphatase 58 U/L (45-117) 05/22/21 05:48 Triglycerides 41 mg/dL (<150) 05/22/21 05:48 Amylase 127 U/L (25-115) H 05/22/21 05:48 Lipase 740 U/L (73-393) H 05/23/21 05:16 Home Medications: Amox/Clavulanate [Augmentin 875-125 Tab] 875 mg PO BID #10 tab 05/23/21 Codeine/APAP [Tylenol W/Codeine #3 tab] 1 tab PO Q4HP PRN #30 tab 05/23/21 New Medications: Amox/Clavulanate [Augmentin 875-125 Tab] 875 mg PO BID #10 tab Codeine/APAP [Tylenol W/Codeine #3 tab] 1 tab PO Q4HP PRN #30 tab PRN Reason: Pain Physician Discharge Instructions: Keep surgical area dry and clean for 48h then may remove outer dressing and shower. Please consult the hog grader before resuming breast feeding while on pain meds and antibiotics Diet: Regular Activity: No lifting more than 10 lbs Followup: Juan Carlos Arvizu MD [ACTIVE - CAN ADMIT] -
[2021-05-23 12:34] VITALS: BP 98/56; TEMP 98
== END 2021-05-23 13:34 | disposition home or self-care (01) | DRG 417 ==
LOC: OR 09:01 → 2ND 12:17
PROVIDERS: ADMIT Surgery; ATTEND Surgery
PROC: 0FT44ZZ Resection of Gallbladder, Percutaneous Endoscopic Approach (ICD-10-PCS; principal; 2021-05-22 10:30)
DX: K80.00 Calculus of gallbladder with acute cholecystitis without obstruction (principal); K85.90 Acute pancreatitis without necrosis or infection, unspecified; Z20.822 Contact with and (suspected) exposure to COVID-19; Z79.899 Other long term (current) drug therapy
CPT/HCPCS: 36415; 74181; 80048; 80053; 80076; 81025; 82150; 83690; 84478; 85025; 88304; J0694; J1100; J2250; J2405; J2704; J2710; J3010; J7030; J7120; U0003

== ENCOUNTER 2023-03-30 03:17 | Emergency (ER) | payer BC ==
--- OUTSIDE RECORDS SUMMARY | 2023-03-30 03:24 | XMS REPORT | Continuity of Care Document ---
:2000 Author Organization [facility] t Address [address] [facility] [address] [place] [address] Care Team Providers Name Role Phone Sonido Tapia MD Primary Care Physician Doctor Unassigned, [place] Attending Clinician Unavailable KATHLEEN BENAVIDES Attending Clinician Unavailable Kathleen Benavides PA-C Attending Clinician Sonido Tapia MD Attending Clinician Nurse, [facility] Attending Clinician Unavailable Zoie Butt CRNA Attending Clinician Nathalie Cronin MD, Leonard Attending Clinician Only, [facility] Test Attending Clinician Unavailable SONIDO TAPIA Attending Clinician Unavailable 2, [facility] Attending Clinician Unavailable Ultrasound, [facility] Mfm Attending Clinician Unavailable David Pineda MD Attending Clinician Mindy Ochoa RN Attending Clinician Unavailable Km Whitney Attending Clinician Lesley GOMEZ, Jackie Attending Clinician Unavailable Ultrasound, Ang-Mfm Attending Clinician Unavailable Tino Glasgow Attending Clinician 1, [facility] Attending Clinician Unavailable SONIDO TAPIA Admitting Clinician Unavailable Sonido Tapia MD Admitting Clinician Payers Payer Name Policy Type Policy Number Effective Date Expiration Date S bianca [facility] [id number] 2020 00:00:00 [place] [facility] [id number] 2020 HEALTH 00:00:00 [place] [id number] 2020 00:00:00 Problems Condition Condition Condition Status Onset Resolution Last Treating Co mments Source Name Details Category Date Date Treatment Clinician Date History of History of Disease Active U nivers COVID-19 COVID-19 6- ity of 00:00: [address] 39 weeks 39 weeks Disease Active Unive rs gestation gestation 6- ity of of of 00:00: [place] 00 [facility] Positive Positive Disease Active Unive rs GBS test GBS test 10-31 ity of 00:00: [address] Anemia, Anemia, Disease Active Univers antepartum antepartum 10-31 it y of , third , third 00:00: [place] trimester trimester 00 [facility] Obesity Obesity Disease Active Univers (BMI (BMI 4-08 ity of 30-39.9) 30-39.9) 00:00: [address] Supervisio Supervisio Disease Active 2019-06 U nivers n of high n of high 2-16 ity of risk risk 00:00: [place] 00 [facility] in third in third Branch trimester trimester Acute Acute Disease Active Univers urinary urinary 8-22 ity of retention retention 00:00: Diogo paris [address] [place] [address] Liveborn Liveborn Disease Active Unive rs infant, of infant, of 8-21 it y of watson watson 00:00: Diogo paris , , 00 Me dical born in born in [facility] hospital by vaginal by vaginal delivery delivery 39 weeks 39 weeks Disease Active Unive rs gestation gestation 8-19 ity of of of 00:00: [place] [address] [place] [address] Encounter Encounter Disease Active Uni vers for for 8-19 ity of planned planned 00:00: [place] induction induction [facility] of labor of labor [place] Maternal Maternal Disease Active Unive rs varicella, varicella, 2-25 it y of non-immune [place]immune [place] [address] [place] [address] Seizure Seizure Disease Active Univers disorder disorder 3-29 ity of 00:00: [address] Threatened Threatened Disease Active U nivers 3-29 ity of 00:00: [place] 00 Medical Branch Unsure of Unsure of Disease Active Uni [...] Active Univers ALLERGIE Class ity of S [facility] Social History Social Habit Start Date Stop Date Quantity Comments Source ASSERTION 2020[facility]02[facility]15 [facility] Exposure to 2020-11-28 2020-12-28 Not sure [facility] SARS-CoV-2 (event) 00:00:00 13:50:00 [facility] Alcohol intake 2020-05-17 2020-05-17 [facility]00 00:00:00 non-drinker of [facility] alcohol Branch (finding) History [facility] 2019-01-19 2019-01-19 5 University o f Financial 00:00:00 00:00:00 [place] [facility] History [facility] Food 2019-01-19 2019-01-19 1 Univers ity of Worry 00:00:00 00:00:00 [place] [facility] [place] History [facility] Food 2019-01-19 2019-01-19 1 Univers ity of Scarcity 00:00:00 00:00:00 [place] Medical [facility] History [facility] 2019-01-19 2019-01-19 1 University o f Transport Med 00:00:00 00:00:00 [place] Medic al Branch History [facility] 2019-01-19 2019-01-19 2 University o f Transport Non-Med 00:00:00 00:00:00 [facility] edical Branch History of Social 2018-12-10 2018-12-10 Univers ity of function 00:00:00 00:00:00 [facility] Tobacco use and 2017-08-28 2017-08-28 Smokeless Universit y of exposure 00:00:00 00:00:00 tobacco non-user [facility] dical Branch Sex Assigned At [birth year] Universit y of 00:00:00 00:00:00 [facility] Smoking Status Start Date Stop Date Source Never smoked tobacco [facility] Medications Ordered Filled Start Stop Current Ordering Indication Dosage Frequency Signature Comments Components Source Medication Medication Date Date Medication? Clinician (SIG) Name Name medroxyPROG 2020- No [id number] 150mg Univers ESTERone 11-30 ity of (DEPO-PROVE 17:45: 17:00 [place] RA) syringe 00 :00 Medical 150 mg Branch medroxyPROG 2020- No [id number] 150mg 150 mg, Univers ESTERone 11-30 Intramuscu ity of (DEPO-PROVE 17:45: 17:00 lar, ONCE, [place] RA) syringe 00 :00 1 dose, Medic al 150 mg Shreya 11/30/20 Branch at 1245, Routine rho(D) Yes 300ug 300 mcg, Univer s immune 6-02 Intramuscu ity of globulin 00:02: lar, ONCE, Shaun as (RHOGAM) 48 For 1 Medical syringe 300 dose, Branch mcg Conditiona l, Routine witch Winsome Yes Topical, Un ghislaine (TUCKS) 50 6-02 Q4HPRN, ity of % topical 00:02: [place] pad 43 e 10/31/20 Medical at 1902, Branch Until Discontinu ed, Routine, rectal/hem orrhoidal pain simethicone Yes 160mg 160 mg, Un ghislaine (GAS RELIEF 6-02 Oral, ity of (SIMETHICON 00:02: PC+HSPRN, [place] E)) 43 Starting Medical chewable e 10/31/20 Branc h tablet 160 at 1902, mg Until Discontinu ed, Routine, Gas HYDROcodone Yes 1{tbl} 1 tablet, Univers -acetaminop 6-02 Oral, ity of hen (NORCO 00:02: Q6HPRN, [place] 5) 5-325 mg 42 Starting Medi demarcus tablet 1 Fri10/31/20 Branc h tablet at 1902, Until Discontinu ed, Routine, Pain (scale 7-10) ibuprofen Yes 600mg 600 mg, Univ ers (IBU) 6-02 Oral, ity of tablet 600 00:02: Q6HPRN, [place] mg 42 Starting Medical 10/31/20 Branch at 1902, Until Discontinu ed, Routine, Pain (scale 4-6) acetaminoph Yes 650mg 650 mg, Un ghislaine en 602 Oral, ity of (TYLENOL) 00:02: Q6HPRN, [place] tablet 650 42 Starting Medic al mg Fri10/31/20 Branch at 1901, Until Discontinu ed, Routine, Pain (scale 1-3) diphenhydrA Yes 25mg 25 mg, Univ ers MINE 602 Oral, ity of (BENADRYL) 00:02: Q6HPRN, [place] tablet 25 42 Starting Medica l mg Fri10/31/20 Branch at 190, Until Discontinu ed, Routine, Sleep, Itching ondansetron Yes 4mg 4 mg, Slow Univers (ZOFRAN 11-01 IV Push, ity of (PF)) 00:02: Q8HPRN, [place] injection 4 42 Starting Medi demarcus mg Fri10/31/20 Branch at 1901, Until Discontinu ed, Routine, Nausea and Vomiting [...] Until Discontinu ed, Routine, Perineum discomfort Yes [id number] 1{tbl} Take 1 Univers vitamin 11-01 102 tablet by ity of w/FA tablet 00:00: mouth [place] 00 daily. Medical Branch docusate Yes [id number] 240mg Take 1 Univers calcium 240 11-01 102 capsule by it y of mg capsule 00:00: mouth once [place] 00 daily as Medical needed for Branch Constipati on. ferrous Yes [id number] 325mg Take 1 Univers sulfate 325 6-02 102 tablet by ity of mg (65 mg 00:00: mouth 2 [place] iron) 00 (two) Medical tablet times Branch daily. ibuprofen Yes [id number] 600mg Take 1 Univers 600 mg 6-02 102 tablet by ity of tablet 00:00: mouth [place] 00 every 6 Medical (six) Branch hours as needed (Pain). Take with food or milk. Yes [id number] 1{tbl} Take 1 Univers vitamin 6-02 102 tablet by ity of w/FA tablet 00:00: mouth [place] 00 daily. Medical Branch docusate Yes [id number] 240mg Take 1 Univers calcium 240 6-02 102 capsule by it y of mg capsule 00:00: mouth once [place] 00 daily as Medical needed for Branch Constipati on. ferrous Yes [id number] 325mg Take 1 Univers sulfate 325 6-02 102 tablet by ity of mg (65 mg 00:00: mouth 2 [place] iron) 00 (two) Medical tablet times Branch daily. ibuprofen Yes [id number] 600mg Take 1 Univers 600 mg 6-02 102 tablet by ity of tablet 00:00: mouth [place] 00 every 6 Medical (six) Branch hours as needed (Pain). Take with food or milk. Yes [id number] 1{tbl} Take 1 Univers vitamin 6-02 102 tablet by ity of w/FA tablet 00:00: mouth [place] 00 daily. Medical Branch docusate Yes [id number] 240mg Take 1 Univers calcium 240 6-02 102 capsule by it y of mg capsule 00:00: mouth once [place] 00 daily as Medical needed for Branch Constipati on. ferrous Yes [id number] 325mg Take 1 Univers sulfate 325 6-02 102 tablet by ity of mg (65 mg 00:00: mouth 2 [place] iron) 00 (two) Medical tablet times Branch daily. ibuprofen Yes [id number] 600mg Take 1 Univers 600 mg 6-02 102 tablet by ity of tablet 00:00: mouth [place] 00 every 6 Medical (six) Branch hours as needed (Pain). Take with food or milk. 2020- Yes [id number] 1{tbl} Take 1 Univers vitamin 6-02 102 tablet by ity of w/FA tablet 00:00: mouth [place] 00 daily. Medical Branch docusate Yes [id number] 240mg Take 1 Univers calcium 240 6-02 102 capsule by it y of mg capsule 00:00: mouth once [place] 00 daily as Medical needed for Branch Constipati on. ferrous Yes [id number] 325mg Take 1 Univers sulfate 325 6-02 102 tablet by ity of mg (65 mg 00:00: mouth 2 [place] iron) 00 (two) Medical tablet times Branch daily. ibuprofen Yes [id number] 600mg Take 1 Univers 600 mg 6-02 102 tablet by ity of tablet 00:00: mouth [place] 00 every 6 Medical (six) Branch hours as needed (Pain). Take with food or milk. Yes [id number] 1{tbl} Take 1 Univers vitamin 6-02 102 tablet by ity of w/FA tablet 00:00: mouth [place] 00 daily. Medical Branch docusate Yes [id number] 240mg Take 1 Univers calcium 240 6-02 102 capsule by it y of mg capsule 00:00: mouth once [place] 00 daily as Medical needed for Branch Constipati on. ferrous Yes [id number] 325mg Take 1 Univers sulfate 325 6-02 102 tablet by ity of mg (65 mg 00:00: mouth 2 [place] iron) 00 (two) Medical tablet times Branch daily. ibuprofen Yes [id number] 600mg Take 1 Univers 600 mg 6-02 102 tablet by ity of tablet 00:00: mouth [place] 00 every 6 Medical (six) Branch hours as needed (Pain). Take with food or milk. Yes [id number] 1{tbl} Take 1 Univers vitamin 6-02 102 tablet by ity of w/FA tablet 00:00: mouth [place] 00 daily. Medical Branch docusate Yes [id number] 240mg Take 1 Univers calcium 240 6-02 102 capsule by it y of mg capsule 00:00: mouth once [place] 00 daily as Medical needed for Branch Constipati on. ferrous Yes [id number] 325mg Take 1 Univers sulfate 325 6-02 102 tablet by ity of mg (65 mg 00:00: mouth 2 [place] iron) 00 (two) Medical tablet times Branch daily. ibuprofen Yes [id number] 600mg Take 1 Univers 600 mg 6-02 102 tablet by ity of tablet 00:00: mouth [place] 00 every 6 Medical (six) Branch hours as needed (Pain). Take with food or milk. 2020-0 Yes [id number] 1{tbl} Take 1 Univers vitamin 6-02 102 tablet by ity of w/FA tablet 00:00: mouth [place] 00 daily. Medical Branch docusate Yes [id number] 240mg Take 1 Univers calcium 240 6-02 102 capsule by it y of mg capsule 00:00: mouth once [place] 00 daily as Medical needed for Branch Constipati on. ferrous Yes [id number] 325mg Take 1 Univers sulfate 325 6-02 102 tablet by ity of mg (65 mg 00:00: mouth 2 [place] iron) 00 (two) Medical tablet times Branch daily. ibuprofen Yes [id number] 600mg Take 1 Univers 600 mg 6-02 102 tablet by ity of tablet 00:00: mouth [place] 00 every 6 Medical (six) Branch hours as needed (Pain). Take with food or milk. Yes [id number] 1{tbl} Take 1 Univers vitamin 6-02 102 tablet by ity of w/FA tablet 00:00: mouth [place] 00 daily. Medical Branch docusate Yes [id number] 240mg Take 1 Univers calcium 240 6-02 102 capsule by it y of mg capsule 00:00: mouth once [place] 00 daily as Medical needed for Branch Constipati on. ferrous Yes [id number] 325mg Take 1 Univers sulfate 325 6-02 102 tablet by ity of mg (65 mg 00:00: mouth 2 [place] iron) 00 (two) Medical tablet times Branch daily. ibuprofen Yes [id number] 600mg Take 1 Univers 600 mg 6-02 102 tablet by ity of tablet 00:00: mouth [place] 00 every 6 Medical (six) Branch hours as needed (Pain). Take with food or milk. Yes [id number] 1{tbl} Take 1 Univers vitamin 6-02 102 tablet by ity of w/FA tablet 00:00: mouth [place] 00 daily. Medical Branch docusate Yes [id number] 240mg Take 1 Univers calcium 240 6-02 102 capsule by it y of mg capsule 00:00: mouth once [place] 00 daily as Medical needed for Branch Constipati on. ferrous Yes [id number] 325mg Take 1 Univers sulfate 325 6-02 102 tablet by ity of mg (65 mg 00:00: mouth 2 [place] iron) 00 (two) Medical tablet times Branch daily. ibuprofen Yes [id number] 600mg Take 1 Univers 600 mg 6-02 102 tablet by ity of tablet 00:00: mouth [place] 00 every 6 Medical (six) Branch hours as needed (Pain). Take with food or milk. Yes [id number] 1{tbl} Take 1 Univers vitamin 6-02 102 tablet by ity of w/FA tablet 00:00: mouth [place] 00 daily. Medical Branch docusate Yes [id number] 240mg Take 1 Univers calcium 240 6-02 102 capsule by it y of mg capsule 00:00: mouth once [place] 00 daily as Medical needed for Branch Constipati on. ferrous Yes [id number] 325mg Take 1 Univers sulfate 325 6-02 102 tablet by ity of mg (65 mg 00:00: mouth 2 [place] iron) 00 (two) Medical tablet times Branch daily. ibuprofen Yes [id number] 600mg Take 1 Univers 600 mg 6-02 102 tablet by ity of tablet 00:00: mouth [place] 00 every 6 Medical (six) Branch hours as needed (Pain). Take with food or milk. Yes [id number] 1{tbl} Take 1 Univers vitamin 6-02 102 tablet by ity of w/FA tablet 00:00: mouth [place] 00 daily. Medical Branch docusate Yes [id number] 240mg Take 1 Univers calcium 240 6-02 102 capsule by it y of mg capsule 00:00: mouth once [place] 00 daily as Medical needed for Branch Constipati on. ferrous Yes [id number] 325mg Take 1 Univers sulfate 325 6-02 102 tablet by ity of mg (65 mg 00:00: mouth 2 [place] iron) 00 (two) Medical tablet times Branch daily. ibuprofen Yes [id number] 600mg Take 1 Univers 600 mg 11-01 102 tablet by ity of tablet 00:00: [...] 21:50 INTRA [place] W/EPINEPHRI 00 :19 PROCEDURE, Nd dical NE) 1.5 Starting Branch %-1:200,000 10/31/20 injection at 1430, Until 10/31/20 at 1650, Routine, Intra-op D5W-LR IV 2020- No 1000mL at 125 Uni vers infusion 10-3102 mL/hr, IV ity o f 1,000 mL [...] No 2mU/min 2-40 Uni vers + oxytocin 10-3102 ruben-unit it y of 20 units IV 09:41: 00:02 s/min [place] Solution 25 :48 (6-120 Medical mL/hr), IV Branch Infusion, TITRATE, Oxytocin Induction / Augmentati on of Labor, Starting Fri10/31/20 at 0441
In fuse IV through a controlled infusion pump at a proximal port on the peripheral IV line.&nbsp ; Sta rt at 2 ruben-unit s/min and increase by 2 ruben-unit s/min every 20 minutes according to oxytocin policy 7.11.52.&n bsp; Going over 20 ruben-unit s/min requires faculty approval.& nbsp;&nbsp ;Max 40 ruben-unit s/min.
ferrous Yes [id number] 325mg Take 1 Un ghislaine sulfate 3-10 tablet by ity of (IRON, 00:00: mouth [place] FERROUS 00 daily. Medical SULFATE,) Branch 325 mg (65 mg iron) tablet ferrous Yes [id number] 325mg Take 1 Un ghislaine sulfate 3-10 tablet by ity of (IRON, 00:00: mouth [place] FERROUS 00 daily. Medical SULFATE,) Branch 325 mg (65 mg iron) tablet ferrous Yes [id number] 325mg Take 1 Un ghislaine sulfate 3-10 tablet by ity of (IRON, 00:00: mouth [place] FERROUS 00 daily. Medical SULFATE,) Branch 325 mg (65 mg iron) tablet ferrous Yes [id number] 325mg Take 1 Un ghislaine sulfate 3-10 tablet by ity of (IRON, 00:00: mouth [place] FERROUS 00 daily. Medical SULFATE,) Branch 325 mg (65 mg iron) tablet ferrous Yes [id number] 325mg Take 1 Un ghislaine sulfate 3-10 tablet by ity of (IRON, 00:00: mouth [place] FERROUS 00 daily. Medical SULFATE,) Branch 325 mg (65 mg iron) tablet ferrous Yes [id number] 325mg Take 1 Un ghislaine sulfate 3-10 tablet by ity of (IRON, 00:00: mouth [place] FERROUS 00 daily. Medical SULFATE,) Branch 325 mg (65 mg iron) tablet ferrous Yes [id number] 325mg Take 1 Un ghislaine sulfate 3-10 tablet by ity of (IRON, 00:00: mouth [place] FERROUS 00 daily. Medical SULFATE,) Branch 325 mg (65 mg iron) tablet ferrous Yes [id number] 325mg Take 1 Un ghislaine sulfate 3-10 tablet by ity of (IRON, 00:00: mouth [place] FERROUS 00 daily. Medical SULFATE,) Branch 325 mg (65 mg iron) tablet ferrous Yes [id number] 325mg Take 1 Un ghislaine sulfate 3-10 tablet by ity of (IRON, 00:00: mouth [place] FERROUS 00 daily. Medical SULFATE,) Branch 325 mg (65 mg iron) tablet ferrous Yes [id number] 325mg Take 1 Un ghislaine sulfate 3-10 tablet by ity of (IRON, 00:00: mouth [place] FERROUS 00 daily. Medical SULFATE,) Branch 325 mg (65 mg iron) tablet ferrous Yes [id number] 325mg Take 1 Un ghislaine sulfate 3-10 tablet by ity of (IRON, 00:00: mouth [place] FERROUS 00 daily. Medical SULFATE,) Branch 325 mg (65 mg iron) tablet ferrous Yes [id number] 325mg Take 1 Un ghislaine sulfate 3-10 tablet by ity of (IRON, 00:00: mouth [place] FERROUS 00 daily. Medical SULFATE,) Branch 325 mg (65 mg iron) tablet ferrous Yes [id number] 325mg Take 1 Un ghislaine sulfate 3-10 tablet by ity of (IRON, 00:00: mouth [place] FERROUS 00 daily. Medical SULFATE,) Branch 325 mg (65 mg iron) tablet ferrous Yes [id number] 325mg Take 1 Un ghislaine sulfate 3-10 tablet by ity of (IRON, 00:00: mouth [place] FERROUS 00 daily. Medical SULFATE,) Branch 325 mg (65 mg iron) tablet ferrous 2020- No [id number] 325mg Take 1 U nivers sulfate 3-10 - tablet by ity of (IRON, 00:00: 00:00 mouth [place] FERROUS 00 :00 daily. Medical SULFATE,) Branch 325 mg (65 mg iron) tablet azithromyci 2019-06- No [id number] 1000mg Take 2 Univers n 500 mg 0-22 10-24 tablets by ity of tablet 00:00: 04:59 mouth [place] 00 :00 daily for Medical 1 day. Branch azithromyci 2019-06- No [id number] 1000mg Take 2 Univers n 500 mg 0-22 10-24 tablets by ity of tablet 00:00: 04:59 mouth [place] 00 :00 daily for Medical 1 day. Branch medroxyPROG 2019- No 150mg Univ ers ESTERone 02-18 ity [...] No 1000mg 1,000 mg, Univers (ROCEPHIN) 01-24 08 Intravenou it y of injection 02:30: 01:36 s, ONCE, 1 [place] 1,000 mg 00 :00 dose, Sat Medica l 01/23/19 at Branch 2130, DONNA
Fa culty member approving Restricted medication : KM ESCALERA III
Reaso n for Anti-Infec tive: Empiric Therapy for Suspected Infection< br>Empiric Therapy Site: Abdominal< br>Duratio n of therapy: 72 hours NaCl 0.9% 2018- No 1000mL at 999 Uni vers (NS) bolus 01-24 08-25 mL/hr, ity of infusion 02:30: 02:08 1,000 mL, Shaun as 1,000 mL 00 :00 IV Medical Infusion, Branch ONCE, 1 dose, 01/23/19 at 2130, STAT Nitrofurant 2018- No [id number] 100mg Take 1 Univers oin&Nit. 01-23 capsule by ity of Macrocryst 00:00: 04:59 mouth 2 [place] (MACROBID) 00 :00 (two) Medical 100 mg times Branch capsule daily for 10 days. Nitrofurant 2018- No [id number] 100mg Take 1 Univers oin&Nit. 01-23 capsule by ity of Macrocryst 00:00: 04:59 mouth 2 [place] (MACROBID) 00 :00 (two) Medical 100 mg times Branch capsule daily for 10 days. ibuprofen 2018- No [id number] 600mg Take 1 Univers 600 mg 8-24 08-30 tablet by ity of tablet 00:00: 04:59 mouth 4 [place] 00 :00 (four) Medical times Branch daily as needed for Pain (scale 4-6) for up to 5 days. acetaminoph 2019- No [id number] 975mg Take 3 Univers en 8-24 08-30 tablets by ity of (TYLENOL) 00:00: 04:59 mouth 4 [place] 325 mg 00 :00 (four) Medical tablet times Branch daily for 5 days. This is the maximum safe dose for a healthy adult. ibuprofen 2019- No [id number] 600mg Take 1 Univers 600 mg 8-24 08-30 tablet by ity of tablet 00:00: 04:59 mouth 4 [place] 00 :00 (four) Medical times Branch daily as needed for Pain (scale 4-6) for up to 5 days. acetaminoph 2019- No [id number] 975mg Take 3 Univers en 8-24 08-30 tablets by ity of (TYLENOL) 00:00: 04:59 mouth 4 [place] 325 mg 00 :00 (four) Medical tablet times Branch daily for 5 days. This is the maximum safe dose for a healthy adult. Yes [id number] 1{tbl} Take 1 Univers vitamin 8-22 102 tablet by ity of w/FA tablet 00:00: mouth [place] 00 daily. Medical Branch docusate Yes [id number] 240mg Take 1 Univers calcium 240 8-22 102 capsule by it y of mg capsule 00:00: mouth once [place] 00 daily as Medical needed for Branch Constipati on. ferrous Yes [id number] 325mg Take 1 Univers sulfate 325 8-22 102 tablet by ity of mg (65 mg 00:00: mouth 2 [place] iron) 00 (two) Medical tablet times Branch daily. ibuprofen Yes [id number] 600mg Take 1 Univers 600 mg 8-22 102 tablet by ity of tablet 00:00: mouth [place] 00 every 6 Medical (six) Branch hours as needed for Pain (scale 1-3) or Pain (scale 4-6) (Pain). Take with food or milk. Yes [id number] 1{tbl} Take 1 Univers vitamin 8-22 102 tablet by ity of w/FA tablet 00:00: mouth [place] 00 daily. Medical Branch docusate Yes [id number] 240mg Take 1 Univers calcium 240 8-22 102 capsule by it y of mg capsule 00:00: mouth once [place] 00 daily as Medical needed for Branch Constipati on. ferrous Yes [id number] 325mg Take 1 Univers sulfate 325 8-22 102 tablet by ity of mg (65 mg 00:00: mouth 2 [place] iron) 00 (two) Medical tablet times Branch daily. ibuprofen Yes [id number] 600mg Take 1 Univers 600 mg 8-22 102 tablet by ity of tablet 00:00: mouth [place] 00 every 6 Medical (six) Branch hours as needed for Pain (scale 1-3) or Pain (scale 4-6) (Pain). Take with food or milk. Yes [id number] 1{tbl} Take 1 Univers vitamin 8-22 102 tablet by ity of w/FA tablet 00:00: mouth [place] 00 daily. [facility] docusate Yes [id number] 240mg Take 1 Univers calcium 240 8-22 102 capsule by it y of mg capsule 00:00: mouth once [place] 00 daily as Medical needed for Branch Constipati on. ferrous Yes [id number] 325mg Take 1 Univers sulfate 325 8-22 102 tablet by ity of mg (65 mg 00:00: mouth 2 [place] iron) 00 (two) Medical tablet times Branch daily. ibuprofen Yes [id number] 600mg Take 1 Univers 600 mg 8-22 102 tablet by ity of tablet 00:00: mouth [place] 00 every 6 Medical (six) Branch hours as needed for Pain (scale 1-3) or Pain (scale 4-6) (Pain). Take with food or milk. Yes [id number] 1{tbl} Take 1 Univers vitamin 8-22 102 tablet by ity of w/FA tablet 00:00: mouth [place] 00 daily. [facility] docusate Yes [id number] 240mg Take 1 Univers calcium 240 8-22 102 capsule by it y of mg capsule 00:00: mouth once [place] 00 daily as Medical needed for Branch Constipati on. ferrous Yes [id number] 325mg Take 1 Univers sulfate 325 8-22 102 tablet by ity of mg (65 mg 00:00: mouth 2 [place] iron) 00 (two) Medical tablet times Branch daily. Yes [id number] 1{tbl} Take 1 Univers vitamin 8-22 102 tablet by ity of w/FA tablet 00:00: mouth [place] 00 daily. Medical Branch docusate Yes [id number] 240mg Take 1 Univers calcium 240 8-22 102 capsule by it y of mg capsule 00:00: mouth once [place] 00 daily as Medical needed for Branch Constipati on. ferrous Yes [id number] 325mg Take 1 Univers sulfate 325 8-22 102 tablet by ity of mg (65 mg 00:00: mouth 2 [place] iron) 00 (two) Medical tablet times Branch daily. Yes [id number] 1{tbl} Take 1 Univers vitamin 8-22 102 tablet by ity of w/FA tablet 00:00: mouth [place] 00 daily. Medical Branch docusate Yes [id number] 240mg Take 1 Univers calcium 240 8-22 102 capsule by it y of mg capsule 00:00: mouth once [place] 00 daily as Medical needed for Branch Constipati on. ferrous Yes [id number] 325mg Take 1 Univers sulfate 325 8-22 102 tablet by ity of mg (65 mg 00:00: mouth 2 [place] iron) 00 (two) Medical tablet times Branch daily. Yes [id number] 1{tbl} Take 1 Univers vitamin 8-22 102 tablet by ity of w/FA tablet 00:00: mouth [place] 00 daily. Medical Branch docusate Yes [id number] 240mg Take 1 Univers calcium 240 8-22 102 capsule by it y of mg capsule 00:00: mouth once [place] 00 daily as Medical needed for Branch Constipati on. ferrous Yes [id number] 325mg Take 1 Univers sulfate 325 8-22 102 tablet by ity of mg (65 mg 00:00: mouth 2 [place] iron) 00 (two) Medical tablet times Branch daily. Yes [id number] 1{tbl} Take 1 Univers vitamin 8-22 102 tablet by ity of w/FA tablet 00:00: mouth [place] 00 daily. Medical Branch docusate 2019-0 Yes [id number] 240mg Take 1 Univers calcium 240 8-22 102 capsule by it y of mg capsule 00:00: mouth once [place] 00 daily as Medical needed for Branch Constipati on. ferrous 2019- Yes [id number] 325mg Take 1 Univers sulfate 325 8-22 102 tablet by ity of mg (65 mg 00:00: mouth 2 [place] iron) 00 (two) Medical tablet times Branch daily. 2019 Yes [id number] 1{tbl} Take 1 [facility] vitamin 8-22 102 tablet by ity of w/FA tablet 00:00: mouth [place] 00 daily. Medical Branch Yes [id number] 1{tbl} Take 1 [facility] vitamin 8-22 102 tablet by ity of w/FA tablet 00:00: mouth [place] 00 daily. Medical Branch Yes [id number] 1{tbl} Take 1 Univers vitamin 8-22 102 tablet by ity of w/FA tablet 00:00: mouth [place] 00 daily. Medical Branch Yes [id number] 1{tbl} Take 1 Univers vitamin 8-22 102 tablet by ity of w/FA tablet 00:00: mouth [place] 00 daily. Medical Branch Yes [id number] 1{tbl} Take 1 [facility] vitamin 8-22 102 tablet by ity of w/FA tablet 00:00: mouth [place] 00 daily. Medical Branch 2018- Yes [id number] 1{tbl} Take 1 [facility] vitamin 8-22 102 tablet by ity of w/FA tablet 00:00: mouth [place] 00 daily. Medical Branch 2019- Yes [id number] 1{tbl} Take 1 [facility] vitamin 8-22 102 tablet by ity of w/FA tablet 00:00: mouth [place] 00 daily. Medical Branch 2019- Yes [id number] 1{tbl} Take 1 Univers vitamin 8-22 102 tablet by ity of w/FA tablet 00:00: mouth [place] 00 daily. Medical Branch 2019-0 Yes [id number] 1{tbl} Take 1 Univers vitamin 8-22 102 tablet by ity of w/FA tablet 00:00: mouth [place] 00 daily. Medical Branch 2019- Yes [id number] 1{tbl} Take 1 Univers vitamin 8-22 102 tablet by ity of w/FA tablet 00:00: mouth [place] 00 daily. Medical [place] 2019-0 Yes [id number] 1{tbl} Take 1 Univers vitamin 8-22 102 tablet by ity of w/FA tablet 00:00: mouth [place] 00 daily. [facility] [address] Yes [id number] 1{tbl} Take 1 Univers vitamin 8-22 102 tablet by ity of w/FA tablet 00:00: mouth [place] 00 daily. [facility] 2019-0 Yes [id number] 1{tbl} Take 1 Univers vitamin 8-22 102 tablet by ity of w/FA tablet 00:00: mouth [place] 00 daily. [facility] [address] Yes [id number] 1{tbl} Take 1 Univers vitamin 8-22 102 tablet by ity of w/FA tablet 00:00: mouth [place] 00 daily. [facility] 0 Yes [id number] 1{tbl} Take 1 Univers vitamin 8-22 102 tablet by ity of w/FA tablet 00:00: mouth [place] 00 daily. [facility] 2018-0 Yes [id number] 1{tbl} Take 1 Univers vitamin 8-22 102 tablet by ity of w/FA tablet 00:00: mouth [place] 00 daily. [facility] 2019-0 Yes [id number] 1{tbl} Take 1 Univers vitamin 8-22 102 tablet by ity of w/FA tablet 00:00: mouth [place] 00 daily. [facility] 2019-0 Yes [id number] 1{tbl} Take 1 [facility] vitamin 8-22 102 tablet by ity of w/FA tablet 00:00: mouth [place] 00 daily. Medical [place] 2019-0 Yes [id number] 1{tbl} Take 1 [facility] vitamin 8-22 102 tablet by ity of w/FA tablet 00:00: mouth [place] 00 daily. Medical [place] 2019-0 Yes [id number] 1{tbl} Take 1 [facility] vitamin 8-22 102 tablet by ity of w/FA tablet 00:00: mouth [place] 00 daily. [facility] 2019-0 Yes [id number] 1{tbl} Take 1 [facility] vitamin 8-22 102 tablet by ity of w/FA tablet 00:00: mouth [place] 00 daily. [facility] 2019-0 Yes [id number] 1{tbl} Take 1 [facility] vitamin 8-22 102 tablet by ity of w/FA tablet 00:00: mouth [place] 00 daily. Medical Branch 2019 Yes [id number] 1{tbl} Take 1 [facility] vitamin 8-22 102 tablet by ity of w/FA tablet 00:00: mouth [place] 00 daily. Medical Branch [address] Yes [id number] 1{tbl} Take 1 [facility] vitamin 8-22 102 tablet by ity of w/FA tablet 00:00: mouth [place] 00 daily. Medical Branch 2019 Yes [id number] 1{tbl} Take 1 [facility] vitamin 8-22 102 tablet by ity of w/FA tablet 00:00: mouth [place] 00 daily. Medical Branch Yes [id number] 1{tbl} Take 1 [facility] vitamin 8-22 102 tablet by ity of w/FA tablet 00:00: mouth [place] 00 daily. Medical Branch Yes [id number] 1{tbl} Take 1 [facility] vitamin 8-22 102 tablet by ity of w/FA tablet 00:00: mouth [place] 00 daily. Medical Branch Yes [id number] 1{tbl} Take 1 [facility] vitamin 8-22 102 tablet by ity of w/FA tablet 00:00: mouth [place] 00 daily. Medical Branch Yes [id number] 1{tbl} Take 1 [facility] vitamin 8-22 102 tablet by ity of w/FA tablet 00:00: mouth [place] 00 daily. Medical Branch 2018- Yes [id number] 1{tbl} Take 1 [facility] vitamin 8-22 102 tablet by ity of w/FA tablet 00:00: mouth [place] 00 daily. Medical Branch 2019-0 Yes [id number] 1{tbl} Take 1 [facility] vitamin 8-22 102 tablet by ity of w/FA tablet 00:00: mouth [place] 00 daily. Medical Branch 2019-0 2021- No [id number] 1{tbl} Take 1 [facility] vitamin 8-22 06-02 102 tablet by ity of w/FA tablet 00:00: 00:[place] 00 :00 daily. Medical [facility] docusate 0 2020- No [id number] 240mg Take 1 Univers calcium 240 8-22 10-21 102 capsule by i ty of mg capsule 00:00: 00:00 mouth once [place] 00 :00 daily as Medical needed for Branch Constipati on. ferrous 2019- 2020- No [id number] 325mg Take 1 [facility] sulfate 325 01-21 102 tablet by it y of mg (65 mg 00:00: 00:[place] iron[place] 00 :00 (two) Medical tablet times Branch daily. ibuprofen 2019- No [id number] 600mg Take 1 Univers 600 mg 01-21 [...] mg 41 Starting Medi demarcus tablet 1 Fri Branch tablet 01/20/19 at 0808, Until Discontinu ed, Routine, Pain (scale 7-10) acetaminoph 2018- Yes 650mg 650 mg, Un ghislaine en 01-20 Oral, ity of (TYLENOL) 13:08: Q6HPRN, [place] tablet 650 41 Starting Medic al mg Wed Branch 01/20/19 at 0808, Until Discontinu ed, Routine, Pain (scale 1-3) ibuprofen 2018- Yes 600mg 600 mg, Univ ers (IBU) [...] 01-20 Oral, ity of RELIEF) 13:08: PC+HSPRN, [place] chewable 41 Starting Medical tablet 160 Wed Branch mg 01/20/19 at 0808, Until Discontinu ed, Routine, Gas docusate Yes 240mg 240 mg, Unive rs calcium 01-20 Oral, ity of (SURFAK) 13:08: QDAILYPRN, [place] capsule 240 41 Starting Medi demarcus mg Wed Branch 01/20/19 at 0808, Until Discontinu ed, Routine, Constipati on magnesium Yes 30mL 30 mL, Univer s hydroxide 01-20 Oral, ity of (MILK OF 13:08: QDAILYPRN, [place] as MAGNESIA) 41 Starting Medica l 400 mg/5 mL Wed Branch suspension 01/20/19 at 30 mL 0808, Until Discontinu ed, Routine, Constipati on benzocaine- Yes Topical, Un ghislaine menthol 01-20 PRN, ity of (DERMOPLAST 13:08: [place] 20-0.5 % 41 Wed Medical topical 01/20/19 at Branch spray 0808, Until Discontinu ed, Routine, Perineum discomfort LR 1000 mL 2019- No 4mU/min 4 Uni vers + oxytocin 01-19 ruben-unit it y of 20 units IV 21:30: 13:08 s/min (12 [place] Solution 00 :46 mL/hr), at Medic al 12 mL/hr, Branch IV Infusion, CONTINUOUS , Starting 01/19/19 at 1630, Until Fri01/20/19 at 0808, DONNA D5W-LR IV 2018- No 1000mL at 125 Uni vers infusion [...] 50 mL 01/19/19 at piggyback 1623, Until 01/20/19 at 0808, 50 mL ferrous 2019-0 Yes [...] Take 1 Univer s sulfate 325 3-27 - tablet by it y of mg (65 mg 00:00: 00:00 [place] iron[place] 00 :00 (two) Medical tablet times Branch daily. Prenat Vit 2019-0 Yes [id number] Take 1 Uni vers Comb.10-Iro 1-28 TAB-CAP/M2 it y of n-FA-DHA 00:00: by mouth [place] (VITAFOL-OB 00 daily. Medica l +DHA) Branch 65-1-250 mg combo pack Prenat Vit 2019-0 Yes [id number] Take 1 Uni vers Comb.10-Iro 1-28 TAB-CAP/M2 it y of n-FA-DHA 00:00: by mouth [place] (VITAFOL-OB 00 daily. Medica l +DHA) Branch 65-1-250 mg combo pack Prenat Vit 2019-0 Yes [id number] Take 1 Uni vers Comb.10-Iro 06-29 TAB-CAP/M2 it y of n-FA-DHA 00:00: by mouth [place] (VITAFOL-OB 00 daily. Medica l +DHA) Branch 65-1-250 mg combo pack Prenat Vit 2019-0 Yes [id number] Take 1 Uni vers Comb.10-Iro 06-29 TAB-CAP/M2 it y of n-FA-DHA 00:00: by mouth [place] (VITAFOL-OB 00 daily. Medica l +DHA) Branch 65-1-250 mg combo pack Prenat Vit 2019- Yes [id number] Take 1 Uni vers Comb.10-Iro 06-29 TAB-CAP/M2 it y of n-FA-DHA 00:00: by mouth [place] (VITAFOL-OB 00 daily. Medica l +DHA) Branch 65-1-250 mg combo pack Prenat Vit 2019-0 Yes [id number] Take 1 Uni vers Comb.10-Iro 06-29 TAB-CAP/M2 it y of n-FA-DHA 00:00: by mouth [place] (VITAFOL-OB 00 daily. Medica l +DHA) Branch 65-1-250 mg combo pack Prenat Vit 2019-0 2019- No [id number] Take 1 Un ghislaine Comb.10-Iro 06-29 08-22 TAB-CAP/M2 i ty of n-FA-DHA 00:00: 00:00 by mouth [place] (VITAFOL-OB 00 :00 daily. Medica l +DHA) Branch 65-1-250 mg combo pack Immunizations Ordered Filled Date Status Comments Source Immunization Name Immunization Name Varicella 2020-12-28 [facility]:00 [place] [facility] ed[facility] pox) Branch Varicella 2020-12-28 [facility]:00 [place] [facility] pox) Branch Varicella 2020-12-28 [facility] 00:[facility]:00 [place] [facility] pox) Branch Varicella 2020-12-28 [facility] 00:00:00 [place] M edical pox) Branch [...] Branch TDAP 2020-08-09 Completed University of 00:00:00 [facility] TDAP 2020-08-09 Completed University of 00:00:00 [facility] TDAP 2020-08-09 Completed University of 00:00:00 [facility] TDAP 2020-08-09 Completed University of 00:00:00 [facility] TDAP 2020-08-09 Completed University of 00:00:00 [facility] TDAP 2020-08-09 Completed University of 00:00:00 [facility] TDAP 2020-08-09 Completed University of 00:00:00 [facility] TDAP 2020-08-09 Completed University of 00:00:00 [facility] TDAP 2020-08-09 Completed University of 00:00:00 [facility] TDAP 2020-08-09 Completed University of 00:00:00 [facility] TDAP 2020-08-09 Completed [facility] of 00:00:00 [place] [...] Completed University of 00:00:00 [place] [facility] [place] TDAP 2020-08-09 Completed University of 00:00:00 [place] [facility] [place] TDAP 2020-08-09 Completed University of 00:00:00 [place] [facility] [place] TDAP 2020-08-09 Completed University of 00:00:00 [facility] TDAP 2020-08-09 Completed University of 00:00:00 [facility] Influenza Virus 2020-03-22 Completed Universit y of Vaccine Quad .5 mL 00:00:00 [place] [facility] IM 6+ MO Branch Influenza Virus [...] y of Vaccine Quad .5 mL 00:00:00 [place] [facility] IM 6+ MO Branch Influenza Virus [...] (ADACEL) 2018-11-19 Completed University of VACCINE 00:00:00 [facility] Branch TDAP (ADACEL) 2018-11-19 Completed University of VACCINE 00:00:00 [place] [facility] TDAP (ADACEL) 2018-11-19 Completed University of VACCINE 00:00:00 [place] [facility] TDAP (ADACEL) 2018-11-19 Completed University of VACCINE 00:00:00 [facility] Branch TDAP (ADACEL) 2018-11-19 Completed University of VACCINE 00:00:00 [facility] Branch TDAP (ADACEL) 2018-11-19 Completed University of VACCINE 00:00:00 [facility] Branch TDAP (ADACEL) 2018-11-19 Completed University of VACCINE 00:00:00 [facility] Branch TDAP (ADACEL) 2018-11-19 Completed University of VACCINE 00:00:00 [facility] Branch TDAP (ADACEL) 2018-11-19 Completed University of VACCINE 00:00:00 [facility] Branch TDAP (ADACEL) 2018-11-19 Completed University of VACCINE 00:00:00 [facility] Branch TDAP (ADACEL) 2018-11-19 Completed University of VACCINE 00:00:00 [facility] Branch TDAP (ADACEL) 2018-11-19 Completed University of VACCINE 00:00:00 [facility] Branch TDAP (ADACEL) 2018-11-19 Completed University of VACCINE 00:00:00 [facility] Branch TDAP (ADACEL) 2018-11-19 Completed University of VACCINE 00:00:00 [facility] Branch TDAP (ADACEL) 2018-11-19 Completed University of VACCINE 00:00:00 [place] [facility] TDAP (ADACEL) 2018-11-19 Completed University of VACCINE 00:00:00 [place] [facility] TDAP (ADACEL) 2018-11-19 Completed University of VACCINE 00:00:00 [facility] Branch TDAP (ADACEL) 2018-11-19 Completed University of VACCINE 00:00:00 [facility] Branch TDAP (ADACEL) 2018-11-19 Completed University of VACCINE 00:00:00 [place] [facility] TDAP (ADACEL) 2018-11-19 Completed University of VACCINE 00:00:00 [place] [facility] TDAP (ADACEL) 2018-11-19 Completed University of VACCINE 00:00:00 [place] [facility] TDAP (ADACEL) 2018-11-19 Completed University of VACCINE 00:00:00 [facility] Branch TDAP (ADACEL) 2018-11-19 Completed University of VACCINE 00:00:00 [facility] Branch TDAP (ADACEL) 2018-11-19 Completed University of VACCINE 00:00:00 [facility] Branch TDAP (ADACEL) 2018-11-19 Completed University of VACCINE 00:00:00 [facility] Branch TDAP (ADACEL) 2018-11-19 Completed University of VACCINE 00:00:00 [facility] Branch TDAP (ADACEL) 2018-11-19 Completed University of VACCINE 00:00:00 [facility] Branch TDAP (ADACEL) 2018-11-19 Completed University of VACCINE 00:00:00 [facility] Branch TDAP (ADACEL) 2018-11-19 Completed University of VACCINE 00:00:00 [facility] Branch TDAP (ADACEL) 2018-11-19 Completed University of VACCINE 00:00:00 [facility] Branch TDAP (ADACEL) 2018-11-19 Completed University of VACCINE 00:00:00 [facility] Branch TDAP (ADACEL) 2018-11-19 Completed University of VACCINE 00:00:00 [facility] Branch TDAP (ADACEL) 2018-11-19 Completed University of VACCINE 00:00:00 [facility] Branch TDAP (ADACEL) 2018-11-19 Completed University of VACCINE 00:00:00 [facility] Branch TDAP (ADACEL) 2018-11-19 Completed University of VACCINE 00:00:00 [facility] Branch TDAP (ADACEL) 2018-11-19 Completed University of VACCINE 00:00:00 [facility] Branch TDAP (ADACEL) 2018-11-19 Completed University of VACCINE 00:00:00 [facility] Branch TDAP (ADACEL) 2018-11-19 Completed University of VACCINE 00:00:00 [facility] Branch TDAP (ADACEL) 2018-11-19 Completed University of VACCINE 00:00:00 [facility] Branch TDAP (ADACEL) 2018-11-19 Completed University of VACCINE 00:00:00 [facility] Branch TDAP (ADACEL) 2018-11-19 Completed University of VACCINE 00:00:00 [facility] Branch TDAP (ADACEL) 2018-11-19 Completed University of [...] (ADACEL) 2018-11-19 Completed University of VACCINE 00:00:00 [facility] Branch TDAP (ADACEL) 2018-11-19 Completed University of VACCINE 00:00:00 [facility] Branch TDAP (ADACEL) 2018-11-19 Completed University of VACCINE 00:00:00 [facility] Branch TDAP (ADACEL) 2018-11-19 Completed University of VACCINE 00:00:00 [facility] Branch TDAP (ADACEL) 2018-11-19 Completed University of VACCINE 00:00:00 [facility] Branch TDAP (ADACEL) 2018-11-19 Completed University of VACCINE 00:00:00 [facility] Branch TDAP (ADACEL) 2018-11-19 Completed University of VACCINE 00:00:00 [facility] TDAP (ADACEL) Unknown [facility] Influenza Virus Unknown Completed Universit y of Vaccine Quad .5 mL [facility] IM 6+ MO Branch (FLUZONE/FLULAVAL/F LUARIX) TDAP (ADACEL) Unknown Completed University of VACCINE [facility] Influenza Virus Unknown Completed Universit y of Vaccine Quad .5 mL [facility] IM 6+ MO Branch (FLUZONE/FLULAVAL/F LUARIX) Vital Signs Vital Name Observation Time Observation Value Comments Source Systolic blood 2020-12-28 19:29:00 108 mm[Hg] Univer sity of pressure [facility] Diastolic blood 2020-12-28 19:29:00 67 mm[Hg] Unive rsity of pressure [facility] Heart rate 2020-12-28 19:29:00 81 /min Universi ty [facility] Body temperature 2020-12-28 19:29:00 37.22 Farrah Univ ersity of [facility] Respiratory rate 2020-12-28 19:29:00 18 /min Univ ersity of [facility] Body height 2020-12-28 19:29:00 157.5 cm Universi ty of [place] [facility] Body weight 2020-12-28 19:29:00 71.124 kg Universi ty of [place] [facility] BMI 2020-12-28 19:29:00 28.68 kg/m2 Universi ty of [facility] Branch Systolic blood 2020-11-30 16:32:00 118 mm[Hg] Univer sity of pressure [facility] Branch Diastolic blood 2020-11-30 16:32:00 72 mm[Hg] Unive rsity of pressure [facility] Heart rate 2020-11-30 16:32:00 78 /min Universi ty of [facility] Body temperature 2020-11-30 16:32:00 36.72 Farrah Univ ersity of [facility] Respiratory rate 2020-11-30 16:32:00 18 /min Univ ersity of [facility] Body height 2020-11-30 16:32:00 157.5 cm Universi ty of [place] [facility] [place] Body weight 2020-11-30 16:32:00 72.122 kg Universi ty of [facility] BMI 2020-11-30 16:32:00 29.08 kg/m2 Universi ty of [facility] Branch Systolic blood 2020-11-01 17:00:00 96 mm[Hg] Univer sity of pressure [place] [facility] Diastolic blood 2020-11-01 17:00:00 48 mm[Hg] Unive rsity of pressure [facility] Heart rate 2020-11-01 17:00:00 84 /min Universi ty of [facility] Body temperature 2020-11-01 17:00:00 36.78 Far[place] Univ ersity of [facility] Respiratory rate 2020-11-01 17:00:00 16 /min Univ ersity of [facility] Oxygen saturation in 2020-11-01 17:00:00 100 /min [facility] by [facility] Pulse oximetry Branch Body height 2020-10-31 13:00:00 157.5 cm Universi ty of [place] [facility] [place] Body weight 2020-10-31 13:00:00 80.74 kg Universi ty of [place] [facility] BMI 2020-10-31 13:00:00 32.56 kg/m2 Universi ty of [place] [facility] Systolic blood 2020-10-26 16:52:00 119 mm[Hg] Univer sity of pressure [place] [facility] Diastolic blood 2020-10-26 16:52:00 79 mm[Hg] Unive rsity of pressure [place] [facility] Heart rate 2020-10-26 16:52:00 98 /min Universi ty of [place] [facility] Body temperature 2020-10-26 16:52:00 36.72 Farrah Univ ersity of [place] [facility] Respiratory rate 2020-10-26 16:52:00 18 /min Univ ersity of [place] [facility] Body height 2020-10-26 16:52:00 157.5 cm Universi ty of [place] [facility] Body weight 2020-10-26 16:52:00 79.379 kg Universi ty of [place] [facility] BMI 2020-10-26 16:52:00 32.01 kg/m2 Universi ty of [place] [facility] Systolic blood 2020-10-19 19:39:00 106 mm[Hg] Univer sity of pressure [place] [facility] Diastolic blood 2020-10-19 19:39:00 79 mm[Hg] Unive rsity of pressure [place] [facility] Heart rate 2020-10-19 19:39:00 106 /min Universi ty of [place] [facility] Body temperature 2020-10-19 19:39:00 36.83 Far[place] Univ ersity of [place] [facility] Respiratory rate 2020-10-19 19:39:00 18 /min Univ ersity of [place] [facility] Body height 2020-10-19 19:39:00 157.5 cm Universi ty of [place] [facility] Body weight 2020-10-19 19:39:00 79.652 kg Universi ty of [place] [facility] BMI 2020-10-19 19:39:00 32.12 kg/m2 Universi ty of [place] [facility] Systolic blood 2020-10-05 19:26:00 114 mm[Hg] Univer sity of pressure [place] [facility] Diastolic blood 2020-10-05 19:26:00 78 mm[Hg] Unive rsity of pressure [place] [facility] Heart rate 2020-10-05 19:26:00 103 /min Universi ty of [place] [facility] Body temperature 2020-10-05 19:26:00 36.72 [...] 19:20:00 109 mm[Hg] Univer sity of pressure [place] [facility] Diastolic blood 2020-09-21 19:20:00 71 mm[Hg] Unive rsity of pressure [place] [facility] Heart rate 2020-09-21 19:20:00 104 /min Universi ty of [place] [facility] Body temperature 2020-09-21 19:20:00 36.94 Farrah Univ ersity of [place] [facility] Respiratory rate 2020-09-21 19:20:00 18 /min Univ ersity of [place] [facility] Body height 2020-09-21 19:20:00 157.5 cm Universi ty of [place] [facility] Body weight 2020-09-21 19:20:00 77.111 [...] 19:49:00 68 mm[Hg] Unive rsity of pressure [place] [facility] Heart rate 2020-08-09 19:49:00 100 /min Universi ty of [place] [facility] Body temperature 2020-08-09 19:49:00 36.83 Far[place] Univ ersity of [place] [facility] Respiratory rate 2020-08-09 19:49:00 18 /min Univ ersity of [place] [facility] Body height 2020-08-09 19:49:00 157.5 cm Universi ty of [place] [facility] Body weight 2020-08-09 19:49:00 73.936 kg Universi ty of [place] [facility] BMI 2020-08-09 19:49:00 29.81 kg/m2 Universi ty of [place] [facility] Systolic blood 2020-07-12 17:19:00 102 mm[Hg] Univer sity of pressure [place] [facility] Diastolic blood 2020-07-12 17:19:00 62 mm[Hg] Unive rsity of pressure [place] [facility] Heart rate 2020-07-12 17:19:00 82 /min Universi ty of [place] [facility] Body temperature 2020-07-12 17:19:00 36.83 Far[place] Univ ersity of [place] [facility] Respiratory rate 2020-07-12 17:19:00 16 /min Univ ersity of [place] [facility] Body height 2020-07-12 17:19:00 157.5 cm Universi ty of [place] [facility] Body weight 2020-07-12 17:19:00 69.945 kg Universi ty of [place] [facility] BMI 2020-07-12 17:19:00 28.20 kg/m2 Universi ty of [place] [facility] Systolic blood 2020-06-14 19:25:00 111 mm[Hg] Univer sity of pressure [place] [facility] Diastolic blood 2020-06-14 19:25:00 68 mm[Hg] Unive rsity of pressure [place] [facility] Heart rate 2020-06-14 19:25:00 105 /min Universi ty of [place] [facility] Body temperature 2020-06-14 19:25:00 36.83 Farrah Univ ersity of [place] [facility] Respiratory rate 2020-06-14 19:25:00 18 /min Univ ersity of [place] [facility] Body height 2020-06-14 19:25:00 157.5 cm Universi ty of [place] [facility] Body weight 2020-06-14 19:25:00 67.586 kg Universi ty of [place] [facility] BMI 2020-06-14 19:25:00 27.25 kg/m2 Universi ty of [place] [facility] Systolic blood 2020-05-17 19:34:00 109 mm[Hg] Univer sity of pressure [place] [facility] Diastolic blood 2020-05-17 19:34:00 63 [...] 2020-03-22 19:16:00 157.5 cm Universi ty of [place] [facility] Body weight 2020-03-22 19:16:00 66.225 kg Universi ty of [place] [facility] BMI 2020-03-22 19:16:00 26.70 kg/m2 Universi ty of [place] [facility] Systolic blood 2019-02-18 18:18:00 104 mm[Hg] Univer sity of pressure [place] [facility] Diastolic blood 2019-02-18 18:18:00 66 mm[Hg] Unive rsity of pressure [place] [facility] Heart rate 2019-02-18 18:18:00 86 /min Universi ty of [place] [facility] Body temperature 2019-02-18 18:18:00 36.94 Far[place] Univ ersity of [place] [facility] Respiratory rate 2019-02-18 18:18:00 18 /min Univ ersity of [place] [facility] Body height 2019-02-18 18:18:00 160 cm Universi ty of [place] [facility] Body weight 2019-02-18 18:18:00 63.231 kg Universi ty of [place] [facility] BMI 2019-02-18 18:18:00 24.69 kg/m2 Universi ty of [place] [facility] Branch Systolic blood 2019-02-18 18:18:00 104 mm[Hg] [facility]iver [facility] Diastolic blood 2019-02-18 18:18:00 66 mm[Hg] Unive rsity of pressure [facility] Heart rate 2019-02-18 18:18:00 86 /min [facility] Body temperature 2019-02-18 18:18:00 36.94 Farrah [facility] Respiratory rate 2019-02-18 18:18:00 18 /min [facility] Body height 2019-02-18 18:18:00 160 cm [facility] Body weight 2019-02-18 18:18:00 63.231 [...] 100 /min University of Arterial blood by [facility] Pulse oximetry Branch Body temperature 2019-01-24 01:04:00 38.22 Farrah [facility] Body weight 2019-01-24 01:04:00 66.679 kg [facility] Systolic blood 2019-01-24 02:00:00 118 mm[Hg] Univer sity of pressure [facility] Diastolic blood 2019-01-24 02:00:00 88 mm[Hg] Unive rsity of pressure [facility] Heart rate 2019-01-24 02:00:00 109 /min [facility] Respiratory rate 2019-01-24 02:00:00 18 /min [facility] Oxygen saturation in 2019-01-24 02:00:00 100 /min University of Arterial blood by [facility] Pulse oximetry Branch Body temperature 2019-01-24 01:04:00 38.22 Farrah [facility] Body weight 2019-01-24 01:04:00 66.679 kg [facility] Systolic blood 2019-01-21 13:12:00 120 mm[Hg] [facility] Diastolic blood 2019-01-21 13:12:00 77 mm[Hg] [facility]ive [facility] Heart rate 2019-01-21 13:12:00 67 /min [facility] Body temperature 2019-01-21 13:12:00 36.61 Farrah [facility] Respiratory rate 2019-01-21 13:12:00 16 /min [facility] Oxygen saturation in 2019-01-21 13:12:00 99 /min University of Arterial blood by [facility] demarcus Pulse oximetry Branch Body weight 2019-01-19 20:30:00 70.761 kg [facility] BMI 2019-01-19 20:30:00 27.63 kg/m2 [facility] Systolic blood 2019-01-21 13:12:00 120 mm[Hg] Univer [facility] Diastolic blood 2019-01-21 13:12:00 77 mm[Hg] [facility] Heart rate 2019-01-21 13:12:00 67 /min [facility] Body temperature 2019-01-21 13:12:00 36.61 Farrah [facility] Respiratory rate 2019-01-21 13:12:00 16 /min [facility] Oxygen saturation in 2019-01-21 13:12:00 99 /min University of Arterial blood by [facility] Pulse oximetry Branch Body weight 2019-01-19 20:30:00 70.761 kg [facility] BMI 2019-01-19 20:30:00 27.63 kg/m2 [facility] Systolic blood 2019-01-14 17:07:00 105 [...] 2019-01-14 17:07:00 160 cm [facility] Body weight 2019-01-14 17:07:00 69.4 kg [facility] BMI 2019-01-14 17:07:00 27.10 kg/m2 [facility] Systolic blood 2019-01-14 17:07:00 105 mm[Hg] [facility] Diastolic blood 2019-01-14 17:07:00 64 mm[Hg] [facility] Heart rate 2019-01-14 17:07:00 76 /min [facility] Body temperature 2019-01-14 17:07:00 36.67 Farrah [facility] Respiratory rate 2019-01-14 17:07:00 20 /min [facility] Body height 2019-01-14 17:07:00 160 cm [facility] Body weight 2019-01-14 17:07:00 69.4 kg [facility] BMI 2019-01-14 17:07:00 27.10 kg/m2 [facility] Systolic blood 2019-01-04 16:24:00 105 mm[Hg] [facility] Diastolic blood 2019-01-04 16:24:00 69 mm[Hg] Unive [facility] Heart rate 2019-01-04 16:24:00 89 /min [facility] Body temperature 2019-01-04 16:24:00 36.56 Farrah [facility] Respiratory rate 2019-01-04 16:24:00 18 /min [facility] Body height 2019-01-04 16:24:00 158.8 cm [facility] Body weight 2019-01-04 16:24:00 68.947 kg [facility] BMI 2019-01-04 16:24:00 27.36 kg/m2 [facility] Systolic blood 2019-01-04 16:24:00 105 mm[Hg] [facility] Diastolic blood 2019-01-04 16:24:00 69 mm[Hg] Unive [facility]ity [facility] Heart rate 2019-01-04 16:24:00 89 /min [facility] Body temperature 2019-01-04 16:24:00 36.56 Farrah [facility] Respiratory rate 2019-01-04 16:24:00 18 /min [facility] Body height 2019-01-04 16:24:00 158.8 cm [facility] Body weight 2019-01-04 16:24:00 68.947 kg [facility] BMI 2019-01-04 16:24:00 27.36 kg/m2 [facility] Procedures Procedure Date / Time Performing Clinician Source Performed INSURANCE CORRESPONDENCE 2021-08-01 06:01:00 Doctor Smita [facility] DME/SUPPLY JUSTIFICATION 2021-01-09 05:01:00 Doctor Smita [facility] VARICELLA 2020-12-28 19:31:19 [facility] (VARIVAX)(CHICKEN POX) [facility] [place] VACCINE VARICELLA 2020-11-30 16:44:44 [facility] (VARIVAX)(CHICKEN POX) [facility] [place] VACCINE CONSENT FOR CONTRACEPTION 2020-11-30 05:01:00 Doctor Ordoñez [facility] POCT TEST 2020-11-30 00:00:00 [facility] CBC WITH DIFF 2020-11-01 06:48:00 Sonido Tapia [facility] VENOUS CORD GAS 2020-10-31 19:59:00 Sonido Tapia [facility] CENTRAL NEURAXIAL BLOCK 2020-10-31 19:53:21 Zoie Butt Un [facility] HEPATITIS B SURFACE 2020-10-31 10:14:[address] [facility] ADC OR DIEGO ONLY - RPR 2020-10-31 10:14:00 Sonido Tapia Un [facility] HIV 1/2 AG-AB WITH REFLEX 2020-10-31 10:14:00 Sonido Tapia [facility] CBC WITH DIFF 2020-10-31 10:13:00 Sonido Tapia [facility] HB ABO GROUPING 2020-10-31 10:13:00 Sonido Tapia [facility] RHO (D) IMMUNE GLOBULIN 2020-10-31 10:13:00 Sonido Tapia [facility] HOSPITAL ADMISSION 2020-10-31 05:01:00 Doctor Smita, [facility] ASSIGNMENT OF BENEFITS 2020-10-27 18:32:25 Doctor Unassigned, Un [facility] Name Medical [place] ASSIGNMENT OF BENEFITS 2020-10-26 17:13:12 Doctor Unassigned, Un [facility] Name Medical Branch POCT URINALYSIS W/O 2020-10-26 00:00:00 Kathleen Benavides [facility] POCT URINALYSIS W/O 2020-10-19 00:00:00 Sonido Tapia [facility] >14 WEEKS US 2020-10-05 19:51:21 Kathleen Benavides [facility] DSU PRE-OP 2020-10-05 05:01:00 Doctor Smita, [facility] [place] [facility] [place] POCT URINALYSIS W/O 2020-10-05 00:00:00 Kathleen Benavides [facility] POCT URINALYSIS W/O 2020-09-21 00:00:00 Kathleen Benavides [facility] POCT URINALYSIS W/O 2020-09-07 18:45:00 Sonido Tapia [facility] TDAP VACCINE, >11 YRS, IM 2020-08-09 20:00:43 Kathleen Benavides Un [facility] CBC WITH DIFF 2020-08-09 18:48:00 Sonido Tap[facility] POCT URINALYSIS W/O 2020-08-09 00:00:00 Kathleen Benavides [facility] POCT URINALYSIS W/O 2020-07-12 17:20:00 Sonido Tapia [facility] POCT URINALYSIS W/O 2020-06-14 00:00:00 Kathleen Benavides [facility] POCT URINALYSIS W/O 2020-05-17 00:00:00 Lyly Ayala [facility] SCANNED LAB RESULTS 2020-04-19 06:01:00 Doctor Smita [facility] Name Medical [place] POCT URINALYSIS W/O 2020-04-19 00:00:00 Kathleen Benavides [facility] SPECIFIC GRAVITY Medical Branch EXTERNAL PROVIDER RECORDS 2020-04-04 06:01:00 Doctor Smita, [facility] [place] [facility] [place] US OB TRANSVAGINAL 2020-03-22 21:28:59 Sonido Tapia [facility] FLU VACC ([id number]), 6+ 2020-03-22 19:41:02 Sonido Tapia [facility] MONTHS, IM, QUAD Medical Branch ASSIGNMENT OF BENEFITS 2020-03-22 19:04:18 Doctor Unassigned, Un [facility] [place] [facility] [place] LACTIC ACID WHOLE BLOOD 2019-01-24 01:34:00 Km Escalera [facility] COMP. METABOLIC PANEL 2019-01-24 01:33:00 Km Escalera [facility] ([id number]) [facility] CBC WITH DIFFERENTIAL 2019-01-24 01:33:00 Km Escalera [facility] URINALYSIS 2019-01-24 01:33:00 Km Escalera [facility] CONSENT/REFUSAL FOR 2019-01-24 00:54:40 Doctor Smita, [facility] DIAGNOSIS AND TREATMENT [place] [facility] [place] CBC WITH DIFFERENTIAL 2019-01-21 08:33:00 Sonido Tapia [facility] VENOUS CORD GAS 2019-01-20 12:06:00 Sonido Tapia [facility] TYPE AND SCREEN 2019-01-19 21:30:00 Sonido Tapia [facility] CBC WITH DIFFERENTIAL 2019-01-19 21:27:00 Sonido Tapia [facility] HEPATITIS B SURFACE 2019-01-19 21:27:00 Sonido Tapia [facility] ANTIGEN [facility] Branch ADC OR [place]IEGO ONLY - RPR 2019-01-19 21:27:00 Sonido Tapia [facility] ADC, CLC OR LCC ONLY - 2019-01-19 21:27:00 Sonido Tapia [facility] HIV TYPE 1 AND 2 ANTIBODY Medica l Branch SCREEN WITH P24 CONSENT/REFUSAL FOR 2019-01-14 17:38:58 Doctor Unaerika, [facility] DIAGNOSIS AND TREATMENT [place] [facility] [place] ASSIGNMENT OF BENEFITS 2019-01-14 17:38:38 Doctor Smita, [facility] Name [facility] POCT URINALYSIS W/O 2019-01-14 00:00:00 Sonido Tapia [facility] CBC WITH DIFFERENTIAL 2019-01-04 17:34:00 Kathleen Benavides [facility] DSU PRE-OP 2019-01-04 05:01:00 Doctor Ordoñez, [facility] Name [facility] POCT URINALYSIS W/O 2019-01-04 00:00:00 Kathleen Benavides [facility] Encounters Start End Encounter Admission Attending Care Care Encounter Source Date/Time Date/Time Type Type Clinicians Facility Department ID 2021-04-01 Outpatient P [facility] [id number] Univers 21:44:33 ity [facility] 2021-08-01 2021-08-01 Orders Doctor BANDA 1.2.840.114 [id number] Univers 00:00:00 00:00:00 Only Unassigned, CANDICE [id number] [facility] [id number] Shaun as [phone] [address] 2021-06-05 2021-06-05 Outpatient R KENNEDY [facility] [id number] Univers 14:30:00 14:30:00 KATHLEEN ittrupti [facility] 2021-01-29 2021-01-29 Telephone [facility] 1.2.840.114 [id number] Univers 00:00:00 00:00:00 Kathleen Bejarano [id number] [id number] [phone] [address] 2021-01-09 2021-01-09 Case Sonido Tapia [facility] 1.2.476.430 [id number] Univers 00:00:00 00:00:00 Management Crow Bejarano [id number] it[id number] [phone] Nd dical [address] 2021-01-09 2021-01-09 Orders Doctor SOLO 1.2.840.114 [id number] Univers 00:00:00 00:00:00 Only Unassigned, CANDICE [id number] ity of [place] [facility] [id number] Shaun as [phone] [address] 2020-12-28 2020-12-28 Nurse Nurse, [facility] 1.2.840.114 [id number] Univers 13:50:59 14:30:02 Visit Kathleen Benavides [id number] [id number] [phone] [address] 2020-12-28 2020-12-28 Outpatient R [facility] [id number] Univers 14:00:00 14:00:00 ity of [facility] 2020-11-30 2020-11-30 [facility] 1.2.820.960 [id number] Univers 11:05:56 12:02:03 Kathleen Bejarano [id number] ity [id number] [phone] [address] 2020-11-30 2020-11-30 [facility] [id number] Univers 11:00:00 11:00:00 KATHLEEN ity [facility] 2020-11-30 2020-11-30 Orders Doctor SOLO 1.2.840.114 [id number] Univers 00:00:00 00:00:00 Only Unassigned, CANDICE [id number] ity of [place] [facility] [id number] Shaun as [phone] [address] 2020-11-03 2020-11-03 Refill Sonido Tapia [facility] 1.2.551.142 [id number] Univers 00:00:00 00:00:00 Crow Bejarano [id number] i [id number] [phone] Nd dical nal [address] 2020-10-31 2020-11-01 Hospital Sonido Tapia [facility] 1.2.840.114 [id number] Univers 04:24:00 18:15:00 Encounter Crow Bejarano [id number] [id number] [phone] [facility] 083 Branch 2020-10-31 2020-10-31 Anesthesia Zoie Butt [facility] 1.2.8 40.114 [id number] Univers 13:50:00 16:46:00 Event Simon Zelaya [id number] it[id number] [phone] [place] [id number] [place] 2020-10-31 2020-10-31 Anesthesia Filomena [facility] 1.2.840.114 [id number] Univers 07:59:41 07:59:41 Event Zoie Bejarano [id number] it[id number] [phone] [facility] 083 [place] 2020-10-31 2020-10-31 Orders Doctor BANDA 1.2.840.114 [id number] Univers 00:00:00 00:00:00 Only Unassigned, CANDICE [id number] ity of [place] [facility] [id number] Shaun as [phone] [facility] 009 Branch 2020-10-27 2020-10-27 Laboratory Only, Adc Test [facility] 1.2.840. 114 [id number] Univers 13:34:39 13:49:39 Only Kathleen Benavides [id number] it[id number] [phone] [facility] 353 Branch 2020-10-27 2020-10-27 Outpatient R KENNEDY [facility] [id number] Univers 13:30:00 13:30:00 KATHLEEN noriega of [facility] 2020-10-27 2020-10-27 Orders Doctor SOLO 1.2.840.114 [id number] Univers 00:00:00 00:00:00 Only Unassigned, CANDICE [id number] ity of [place] [facility] [id number] Shaun as [phone] [address] 2020-10-26 2020-10-26 [facility] 1.2.572.387 [id number] Univers 11:36:26 11:51:26 Kathleen Bejarano [id number] ity [id number] [phone] Nd dical nal 134 [facility] 2020-10-26 2020-10-26 Outpatient R KENNEDY [facility] [id number] Univers 11:30:00 11:30:00 KATHLEEN ittrupti [facility] 2020-10-26 2020-10-26 Orders Doctor SOLO 1.2.840.114 [id number] Univers 00:00:00 00:00:00 Only Unassigned, CANDICE [id number] ity of [place] [facility] [id number] Shaun as [phone] [address] 2020-10-19 2020-10-19 Routine Sonido Tapia [facility] 1.2.581.894 [id number] Univers 14:07:27 15:04:33 Crow Bejarano [id number] it[id number] [phone] Nd dical nal 134 [facility] 2020-10-19 2020-10-19 Outpatient R SONIDO TAPIA [facility] [id number] Univers 14:00:00 14:00:00 ity of [facility] 2020-10-05 2020-10-05 Litharge Supervisor 2, Javier Lab [facility] 1.2.840.114 [id number] Univers 15:10:54 15:25:54 Visit Kathleen Benavides [id number] [place] of [id number] [phone] Nd dical nal 353 [facility] 2020-10-05 2020-10-05 Routine Kennedy [facility] 1.2.331.349 [id number] Univers 14:17:04 14:32:04 Kathleen Bejarano [id number] ity [id number] [phone] Nd dical nal 134 [facility] 2020-10-05 2020-10-05 Outpatient R SONIDO TAPIA [facility] [id number] Univers 14:15:00 14:15:00 ity of [facility] 2020-10-05 2020-10-05 Outpatient R KENNEDY [facility] [id number] Univers 14:15:00 14:15:00 KATHLEEN ittrupti [facility] 2020-10-05 2020-10-05 Orders Doctor SOLO 1.2.840.114 [id number] Univers 00:00:00 00:00:00 Only Unassigned, CANDICE [id number] [facility] [id number] Shaun as [phone] [address] 2020-09-21 2020-09-21 [facility] 1.2.290.148 [id number] Univers 14:10:10 14:25:10 Kathleen Bejarano [id number] it[id number] [phone] Nd dical nal [address] [place] [address] 2020-09-21 2020-09-21 Outpatient R KENNEDY [facility] [id number] Univers 14:15:00 14:15:00 KATHLEEN noriega [facility] 2020-09-07 2020-09-07 Routine Gurvinder Sonido [facility] 1.2.317.600 [id number] Univers 13:32:33 14:18:29 Cam Carlee [id number] ity of [id number] [phone] Nd dical nal [address] [place] [address] 2020-09-07 2020-09-07 Outpatient SONIDO GARDNER [facility] [id number] Univers 13:45:00 13:45:00 ity of [facility] 2020-09-07 2020-09-07 Letter Karolina Tapiaen [facility] 1.2.490.491 [id number] Univers 00:00:00 00:00:00 (Out) Crow Bejarano [id number] i [place] [phone] Nd dical nal 134 [facility] 2020-08-09 2020-08-09 Routine [facility] 1.2.402.931 [id number] Univers 13:08:41 14:08:40 Kathleen Carlee 350.1.13.10 ity of [place] [phone] Nd dical nal [address] [place] [address] 2020-08-09 2020-08-09 Outpatient R KENNEDY [facility] [id number] Univers 13:30:00 13:30:00 [facility] 2020-08-09 2020-08-09 Litharge Supervisor 2, Adc Lab [facility] 1.2.840.114 [id number] Univers 11:30:55 11:45:55 Visit Sonido Tapia [id number] [place] of [place] [phone] Nd dical [facility] 353 [facility] 2020-07-12 2020-07-12 Routine Tapia Sonido [facility] 1.2.388.134 [id number] Univers 10:50:20 11:05:20 Crow Bejarano [id number] ity of [place] [phone] Nd dical nal 134 [facility] 2020-07-12 2020-07-12 Outpatient R TAPIA SONIDO [facility] [id number] Univers 11:00:00 11:00:00 ity [facility] 2020-06-29 2020-06-29 Patient Sonido Tapia [facility] 1.2.277.237 [id number] Univers 00:00:00 00:00:00 Secure Msg Cam [place] [id number] ity of [place] [phone] Nd dical NAL 134 [facility] 2020-06-29 2020-06-29 Patient Sonido Tapia [facility] 1.2.368.599 [id number] Univers 00:00:00 00:00:00 Secure Msg Cam [place] [id number] it[place] [phone] Nd dical NAL 134 [facility] 2020-06-23 2020-06-23 Litharge Supervisor Ultrasound, Adc [facility] 1.2 .840.114 [id number] Univers 13:53:43 14:53:43 Visit David Pineda [id number] it[place] of [place] [phone] Nd dical nal [address] [place] [address] 2020-06-23 2020-06-23 Outpatient P [facility] [id number] Univers 14:00:00 14:00:00 ity of [facility] 2020-06-14 2020-06-14 [facility] 1.2.046.152 [id number] Univers 13:11:39 13:38:11 Kathleen Bejarano [id number] ity of [place] [phone] Nd dical nal [address] [place] [address] 2020-06-14 2020-06-14 Outpatient R KENNEDY [facility] [id number] Univers 13:00:00 13:00:00 KATHLEEN ittrupti [facility] 2020-05-17 2020-05-17 Litharge Supervisor 2, Adc Lab [facility] 1.2.840.114 [id number] Univers 13:54:40 14:09:40 Visit Sonido Tapia [place] [id number] it[place] of [place] [phone] Nd dical nal 353 [facility] 2020-05-17 2020-05-17 Routine Sonido Tapia [facility] 1.2.513.962 [id number] Univers 13:12:10 13:27:10 Crow Bejarano [id number] ity of [place] [phone] Nd dical nal 134 [facility] 2020-05-17 2020-05-17 Outpatient R SONIDO TAPIA [facility] [id number] Univers 13:15:00 13:15:00 ity of [facility] 2020-05-03 2020-05-03 Telephone Sonido Tapia [facility] 1.2.840.114 [id number] Univers 00:00:00 00:00:00 Crow [place] [id number] i ty of [place] [phone] Nd dical nal 134 [facility] 2020-04-24 2020-04-24 Telephone Sonido Tapia [facility] 1.2.840.114 [id number] Univers 00:00:00 00:00:00 Cam Carlee 350.1.13.10 i ty [place] [phone] Nd dical nal 134 [facility] 2020-04-19 2020-04-19 Litharge Supervisor 2, Adc Lab [facility] 1.2.840.114 [id number] Univers 12:14:24 12:29:24 Visit Sonido Tapia Crow Bejarano 350.1.13.10 ity of [place] [phone] Nd dical nal 353 [facility] 2020-04-19 2020-04-19 Routine Kennedy [facility] 1.2.044.356 [id number] Univers 11:25:58 11:40:58 Kathleen Bejarano 350.1.13.10 ity of [place] [phone] Nd dical nal 134 [facility] 2020-04-19 2020-04-19 Outpatient R KENNEDY [facility] [id number] Univers 11:15:00 11:15:00 KATHLEEN ity of [facility] 2020-04-19 2020-04-19 Outpatient R [facility] [id number] Univers 10:45:00 10:45:00 ity of [facility] 2020-04-19 2020-04-19 Orders Doctor SOLO 1.2.840.114 [id number] Univers 00:00:00 00:00:00 Only Unassigned, CANDICE 350.1.13.10 ity of [place] [facility] 4.2.7.2.686 Shaun as [phone] [address] 2020-04-14 2020-04-14 Telephone Sonido Tapia [facility] 1.2.840.114 [id number] Univers 00:00:00 00:00:00 Cam Carlee 350.1.13.10 i ty [place] [phone] Nd dical nal [address] [place] [address] 2020-04-13 2020-04-13 Case Sonido Tapia [facility] 1.2.536.366 [id number] Univers 00:00:00 00:00:00 Management Crow Bejarano [id number] ity of [place] [phone] Nd dicvt nal [address] [place] [address] 2020-04-04 2020-04-04 Orders Doctor SOLO 1.2.840.114 [id number] Univers 00:00:00 00:00:00 Only Unassigned, CANDICE 350.1.13.10 ity of [place] [facility] 4.2.7.2.686 Shaun as [phone] [address] 2020-03-23 2020-03-23 Case Kennedy [facility] 1.2.185.221 [id number] Univers 00:00:00 00:00:00 Management Kathleen Bejarano [id number] ity of [place] [phone] Nd dicvt nal [address] [place] [address] 2020-03-23 2020-03-23 Case Kennedy [facility] 1.2.032.974 [id number] Univers 00:00:00 00:00:00 Management Kathleen [place] [id number] ity of [place] [phone] Nd dic[address] 2020-03-22 2020-03-22 Initial Sonido Tapia [facility] 1.2.493.183 [id number] Univers 14:05:06 15:30:30 Cam [place] 350.1.13.10 ity of [place] [phone] [address] 2020-03-22 2020-03-22 Outpatient R SONIDO TAPIA [facility] [id number] Univers 14:00:00 14:00:00 ity of [facility] 2020-03-22 2020-03-22 Orders Doctor SOLO 1.2.840.114 [id number] Univers 00:00:00 00:00:00 Only Unassigned, CANDICE 350.1.13.10 [facility] 4.2.7.2.686 Hsaun as [phone] [address] 2019-11-05 2019-11-05 Patient Sonido Tapia [facility] 1.2.096.329 [id number] 00:00:00 00:00:00 Secure Msg Cam [place] 350.1.13.10 [place] 4.2.7.2.686 Professio [phone] [address] 2019-11-05 2019-11-05 Patient Sonido Tapia [facility] 1.2.076.945 [id number] Univers 00:00:00 00:00:00 Secure Msg Cam [place] 350.1.13.10 [place] of [place] [phone] Nd dic[address] 2019-09-02 2019-09-02 Outpatient Adonis BENAVIDES [facility] [id number] Univers 13:00:00 13:00:00 KATHLEEN noriega [facility] 2019-08-23 2019-08-23 Outpatient Adonis BENAVIDES [facility] [id number] Univers 15:30:00 15:30:00 KATHLEEN noriega [facility] 2019-08-19 2019-08-19 Outpatient R KENNEDY [facility] [id number] Univers 13:00:00 13:00:00 KATHLEEN noriega [facility] 2019-02-18 2019-02-18 Routine Sonido Tapia [facility] 1.2.600.624 [id number] 13:05:35 13:56:52 Cam [place] 350.1.13.10 Visit [place] 4.2.7.2.686 Professio [phone] [address] 2019-02-18 2019-02-18 Routine Sonido Tapia [facility] 1.2.203.666 [id number] [facility] 13:05:35 13:56:52 Cam [place] 350.1.13.10 [place] of [place] [phone] [address] 2019-01-25 2019-01-25 Patient Gabriela [facility] 1.2.840.114 [id number] 00:00:00 00:00:00 Secure Msg Mindy A [place] 350.1.13.10 [place] 4.2.7.2.686 Professio [phone] [address] 2019-01-25 2019-01-25 Patient Gabriela [facility] 1.2.840.114 [id number] Univers 00:00:00 00:00:00 Secure Msg Mindy A [place] 350.1.13.10 [place] [phone] [address] 2019-01-23 2019-01-23 [facility].239.610 [id number] [facility] 20:01:44 21:16:00 Km A [place] 350.1.13.10 i ty of [place] [phone] [address] 2019-01-23 2019-01-23 [facility] 1.2.010.201 [id number] 20:01:44 21:16:00 Km A [place] 350.1.13.10 [place] 4.2.7.2.686 [place] [phone] [facility] 2019-01-23 2019-01-23 Nurse SOLO Sutton 1.2.840.114 [id number] Univers 00:00:00 00:00:00 Triage Aneatrice CANDICE 350.1.13.10 ity of [facility] 4.2.7.2.686 Shaun as [phone] [facility] [address] [place] 2019-01-23 2019-01-23 Nurse SOLO Sutton 1.2.840.114 [id number] 98 00:00:00 00:00:00 Triage Aneatrice CANDICE 350.1.13.10 [place] [address].2.7.2.686 [id number] [facility] 2019-01-19 2019-01-21 [facility] 1.2.840.114 [id number] [facility] 14:51:41 12:50:00 Encounter Cam Freedom 350.1.13.10 ity of [place] [phone] [address] 2019-01-19 2019-01-21 [facility] Son[facility] Tapia [facility] 1.2.840.114 [id number] 14:51:41 12:50:00 Encounter Cam Freedom 350.1.13.10 [place] 4.2.7.2.686 [place] [phone] [facility] 2019-01-21 2019-01-21 Patient Gabriela, [facility] 1.2.840.114 [id number] Univers 00:00:00 00:00:00 Secure Msg Mindy A [place] 350.1.13.10 it[place] of [place] [phone] Nd dical critical [facility] [address] [facility] 2019-01-21 2019-01-21 Patient Gabriela, [facility] 1.2.840.114 [id number] 18 00:00:00 00:00:00 Secure Msg Mindy A [place] 350.1.13.10 [place] 4.2.7.2.686 Professio [phone] [address] 2019-01-14 2019-01-14 [facility] 1.2.196.301 [id number] Univers 11:18:36 12:23:47 Cam Carlee 350.1.13.10 ity of Visit [place] [phone] Nd dical [address] 2019-01-14 2019-01-14 Routine Sonido Tapia [facility] 1.2.685.484 [id number] 11:18:36 12:23:47 Cam Carlee 350.1.13.10 Visit [place] 4.2.7.2.686 Professio [phone] [address] 2019-01-06 2019-01-06 Litharge Supervisor Ultrasound, [facility] 1.2.840.114 [id number] 15:28:11 15:54:20 Visit Pamkati SCENE AND LIGHTING DESIGN LECTURER 350.1.13.10 [facility] 4.2.7.2.686 MATERNAL [phone] & CHILD [address] [place] [address] 2019-01-06 2019-01-06 Litharge Supervisor [facility] 1.2 .840.114 [id number] [facility] 15:28:11 15:54:20 Visit Tino Glasgow SCENE AND LIGHTING DESIGN LECTURER 350.1.13.[address] [facility] 4.2.7.2.686 Shaun as MATERNAL [phone] Med ical & CHILD [address] [place] [address] 2019-01-04 2019-01-04 Litharge Supervisor 1, Ad[facility] Lab [facility] 1.2.840.114 [id number] 12:12:21 12:27:21 Visit Carlee 350.1.13.10 [place] 4.2.7.2.686 [place] [phone] [facility] 2019-01-04 2019-01-04 Litharge Supervisor 1, Adc Lab [facility] 1.2.840.114 [id number] [facility] 12:12:21 12:27:21 Visit Kathleen Benavides 350.1.13.10 ity of [place] [phone] [address] 2019-01-04 2019-01-04 Routine Kennedy [facility] 1.2.067.601 [id number] 11:01:16 11:46:36 Kathleen Bejarano 350.1.13.10 Visit [place] 4.2.7.2.686 Professio [phone] critical access hospital 134 [facility] 2019-01-04 2019-01-04 Routine KennedyFAVIO 1.2.896.783 [id number] [facility] 11:01:16 11:46:36 Kathleen Bejarano 350.1.13.10 ity of Visit [place] 4[place].2.[place] [phone] Nd dical [address] 2019-01-04 2019-01-04 Orders Doctor SOLO 1.2.840.114 [id number] 00:00:00 00:00:00 Only Unassigned, CANDICE 350.1.13.10 [place] [facility] 4.2.7.2.686 [phone] 009 2019-01-04 2019-01-04 Orders Doctor SOLO 1.2.840.114 [id number] Univers 00:00:00 00:00:00 Only Unassigned, CANDICE 350.1.13.10 ity of [place] [facility] 4.2.7.2.686 Shaun as [phone] [address] Results Test Description Test Time Test Comments Results Result Comments Source POCT TEST 2020-11-30 16:38:00 Test Item Value Reference Range Interpretation Comme nts POCT PREG (test code = 1605) Negative On board controls acceptable with C Line (test code = 3574) Yes POCT PREG LOT # (test code = 3575) POCT PREG TEST DATE (test code = 3576) Lab Interpretation (test code = 66154-9) Normal [facility] with [id number] 11:38:00 Test Item Value Reference Range Interpretation Comments WBC (test code = See_Comment H [Automated 0490-2) message] The system which generated this result transmit hamlet reference range : 4.30 - 11.10 10*3/?L. The reference range was not used to interpret this result as normal/abnormal . RBC (test code = See_Comment L [Automated 419-8) message] The system which generated this result [...] RDW-SD (test code = 44.5 fL 39.0-49.9 17139-2) RDW-CV (test code = 14.9 % 12.0-15.5 788-0) PLT (test code = See_Comment [Automated 777-3) message] The system which generated this result transmit hamlet reference range : 166 - 358 10*3/ ?L. The reference range was not u sed to interpret th is result as normal/abnormal . MPV (test code = 9.9 fL 9.5-12.9 55759-5) NRBC/100 WBC (test See_Comment [Automat ed code = 9869343792) message] The system which generated this result transmit hamlet reference range : 0.0 - 10.0 /100 WBCs. The reference range was not used to interpret this result as normal/abnormal . NRBC x10^3 (test code <0.01 See_Comment [Auto mated = 8213578378) message] The system which generated this result transmit hamlet reference range : 10*3/?L. The reference range was not used to interpret this result as normal/abnormal . GRAN MAT (NEUT) % 80.4 % (test code = 770-8) IMM GRAN % (test code 0.40 % = 9718530519) LYMPH % (test code = 11.6 % 736-9) MONO % (test code = 7.4 % 5905-5) EOS % (test code = 0.1 % 713-8) BASO % (test code = 0.1 % 706-2) GRAN MAT x10^3(ANC) 11.07 10*3/uL 1.88-7.09 H (test code = 6019076371) IMM GRAN x10^3 (test 0.05 10*3/uL 0.00-0.06 code = 9401794955) LYMPH x10^3 (test code 1.60 10*3/uL 1.32-3.29 = 731-0) MONO x10^3 (test code 1.02 10*3/uL 0.33-0.92 H = 742-7) EOS x10^3 (test code = <0.03 0.03-0.39 L 711-2) BASO x10^3 (test code <0.03 0.01-0.07 = 704-7) Lab Interpretation Abnormal (test code = 34887-6) [facility] [place] [facility] - [id number] 07:05:57 Test Item Value Reference Range Interpretation Comments RPR (Qualitative) (test code = Nonreactive Nonreactive 80628-3) Lab Interpretation (test code = Normal 13694-7) [facility] IMMUNE [id number] 00:51:30 Test Item Value Reference Range Interpretation Comments RHIG CANDIDATE? No- see comment Patient i s not a (test code = candidate for R hIg- 5055) Patient is Rh Positive.Perfor med at [facility] Laboratory Services - [facility] Blood N[address] [place], [place] [address]Toll Free: [phone] A No. [id number] [facility] CenterVenous Cord [id number] 20:20:48 Test Item Value Reference Range Interpretation Comments VENOUS BASE EXCESS, mEq/L CORD (test code = 2740461232) VENOUS PH, CORD (test 7.25-7.45 code = 7423873528) VENOUS PC02, CORD See_Comment [Automate d message] The (test code = system which ge nerated 4874068358) this result tra nsmitted reference range : 27 - 49 mmHg. The refer ence range was not used to interpret this result as normal/abnormal . VENOUS PO2, CORD (test See_Comment [Aut omated message] The code = 8562055535) system wh ich generated this result tra nsmitted reference range : 17 - 41 mmHg. The refer ence range was not used to interpret this result as normal/abnormal . VENOUS BICARBONATE, See_Comment [Automa hamlet message] The CORD (test code = system whi ch generated 7713968761) this result tra nsmitted reference range : 12 - 29 mEq/L. The refe rence range was not used to interpret this result as normal/abnormal . [facility] CenterArterial Cord Soh3648-33-33 20:17:59 Test Item Value Reference Range Interpretation Comments BASE EXCESS, CORD mEq/L (test code = 2469958067) AC PH, CORD (BEAKER) 7.18-7.38 (test code = 2351996068) PC02, CORD (test code See_Comment [Auto mated message] The = 0423289695) system which g enerated this result transmit hamlet reference range : 32 - 66 mmHg. The refer ence range was not used to interpret this result as normal/abnormal . PO2, CORD (test code See_Comment [Autom ated message] The = 2916696885) system which g enerated this result transmit hamlet reference range : 10 - 30 mmHg. The refer ence range was not used to interpret this result as normal/abnormal . BICARBONATE, CORD See_Comment [Automate d message] The (test code = system which ge nerated this 0392805809) result transmit hamlet reference range : 17 - 27 mEq/L. The refe rence range was not used to interpret this result as normal/abnormal . [facility] Center[facility] Neuraxial Iogyh6570-19-27 19:53:21 Simon Zelaya MD ? ? 10/31/2020 ?3:36 PM Central Neuraxial Block Performed by: Zoie Butt CRNAAuthorized by: Simon Zelaya MD Patient Location: OBStart Time: 10/31/2020 2:08 PMEnd Time:10/31/2020 2:30 PMReason for Block: OB request, Patient request and Labor analgesiaStaff: ?Anesthesiologist: Simon Zelaya MD ?Resident/WEB SITE MANAGER: Zoie Butt CRNA ?Performed by: anesthesiologistand resident/CRNAPreanesthetic Checklist: patient identified, IV checked, risks and benefits explained, monitors and equipment checked, timeout performed, ob surgical consent/approval, pre-op evaluation, surgical consent, site marked and anesthesia consentProcedure: ?Type of Neuraxial: Epidural and Continuous ?Patient Position: sitting ?Prep: Betadine and patient draped ? ?Monitoring: registered nurse cardiac telemetry/ EKG, heart rate, continuous pulse ox and heart rate / toco ?Location: lumbar (1-5) ?Lumbar: L3-L4 ?Approach: midline ? ?Technique: ALYCIA salineEpidural/Spinal Red House and/or Catheter: ?Epidural/Spinal Kit: BBraun ?Needle Type: Tuohy ?Needle Gauge: 17 G ?Needle Length: 3.5 in (8.89 cm) ?Needle Insertion Depth: 6.5 ?Catheter Type: end hole ? ?Catheter Size: 19 G ? ?Catheter at Skin Depth: 11.5 ?Number of Attempts: 2 ?Test Dose: lidocaine 1.5% with epinephrine 1-to-200,000 and negative ? ?Dose: 5cc ? ?Catheter Securement Method: clear occlusive dressing, surgical tape, Tegaderm and liquid medical adhesiveAssessment: ?Sensory Level: above T10 ?Block Outcome: pain improved ? ?Procedure Assessment: patient tolerated procedure well with no complicationsNotes: ? Pt tolerated procedure well. No complications noted. [facility] CenterHepatitis B Surface Kptqivj8850-83-81 16:48:10 Test Item Value Reference Range Interpretation Comments HBsAg Semi-Quantitative (test code = Negative Negative 5195-3) [facility] CenterHIV 1/2 AG-AB WITH [id number] 13:02:29 Test Item Value Reference Range Interpretation Comments HIV Negative Negative Semi-quantitative (test code = 76633-6) FARNTZ (test code = Non-reactive for HIV-1 FRANTZ) antigen and HIV-1/HIV-2 antibodies. ?No laboratory evidence of HIV infection. ?Repeat in 2-4 weeks if acute HIV infection is suspected. [facility] CenterType and Screen - ONCE [id number] 12:17:29 Test Item Value Reference Range Interpretation Comments ABO & RH (test code O Positive Performe d at [facility] = 20) Laboratory [facility] Blood [facility] [place] [address]Mutw Free: [phone] A No. [id number] IAT (test code = Negative Performed a t [facility] 1185) Laboratory [facility] [place] [address]Jcdq Free: [phone] A No. [id number] [facility] with [id number] 11:31:27 Test Item Value Reference Range Interpretation [...] RDW-SD (test code = 43.3 fL 39.0-49.9 85625-5) RDW-CV (test code = 14.8 % 12.0-15.5 788-0) PLT (test code = See_Comment [Automated 777-3) message] The sy stem which generated this result transmitted reference range : 166 - 358 10*3/ ?L. The reference r basil was not used to interpret this result as normal/abnormal . MPV (test code = 9.5 fL 9.5-12.9 21215-5) NRBC/100 WBC (test See_Comment [Automat ed code = 7683635724) message] The system which generated this result transmitted reference range : 0.0 - 10.0 /100 WBCs. The refer ence range was not u sed to interpret th is result as normal/abnormal . NRBC x10^3 (test code <0.01 See_Comment [Auto mated = 8731854527) message] The s ystem which generated this result transmitted reference range : 10*3/?L. The reference range was not used to interpret this result as normal/abnormal . GRAN MAT (NEUT) % 65.4 % (test code = 770-8) IMM GRAN % (test code 0.80 % = 8498560111) LYMPH % (test code = 22.3 % 736-9) MONO % (test code = 10.8 % 5905-5) EOS % (test code = 0.4 % 713-8) BASO % (test code = 0.3 % 706-2) GRAN MAT x10^3(ANC) 5.96 10*3/uL 1.88-7.09 (test code = 2415763996) IMM GRAN x10^3 (test 0.07 10*3/uL 0.00-0.06 H code = 2980746027) LYMPH x10^3 (test code 2.03 10*3/uL 1.32-3.29 = 731-0) MONO x10^3 (test code 0.98 10*3/uL 0.33-0.92 H = 742-7) EOS x10^3 (test code = 0.04 10*3/uL 0.03-0.39 711-2) BASO x10^3 (test code 0.03 10*3/uL 0.01-0.07 = 704-7) Lab Interpretation Abnormal (test code = 02278-5) [facility] URINALYSIS W/O SPECIFIC [id number] 16:53:00 Test Item Value Reference Range Interpretation [...] code = 3257) N/A Negative - Negative [facility] URINALYSIS W/O SPECIFIC [id number] 19:41:00 Test Item Value Reference Range Interpretation [...] Negative Lab Interpretation (test code = Normal 37113-1) [facility]>14 WEEKS US [id number] 19:51:40Cephalic presentationUnBaylor Scott & [facility] PlanoPOCT URINALYSIS W/O SPECIFIC [id number] 19:40:00 Test Item Value Reference Range Interpretation [...] code = 3257) N/A Negative - Negative [facility] CenterPOID URINALYSIS W/O SPECIFIC [id number] 19:30:00 Test Item Value Reference Range Interpretation [...] code = 3257) n/a Negative - Negative [facility] CenterPOID URINALYSIS W/O SPECIFIC [id number] 18:45:00 Test Item Value Reference Range Interpretation [...] code = 3257) n/a Negative - Negative [facility] CenterPOID URINALYSIS W/O SPECIFIC [id number] 19:52:00 Test Item Value Reference Range Interpretation [...] Negative Lab Interpretation (test code = Normal 39324-0) [facility] WITH [id number] 18:58:37 Test Item Value Reference Range Interpretation Comments WBC (test code = See_Comment [Automated 5090-2) message] The sy stem which generated this result transmitted reference range : 4.30 - 11.10 10*3/?L. The reference range was not used to interpret this result as normal/abnormal . RBC (test code = See_Comment L [Automated 499-8) message] The sy stem which generated this [...] RDW-SD (test code = 44.8 fL 39.0-49.9 96436-9) RDW-CV (test code = 13.7 % 12.0-15.5 788-0) PLT (test code = See_Comment [Automated 777-3) message] The sy stem which generated this result transmitted reference range : 166 - 358 10*3/ ?L. The reference r basil was not used to interpret this result as normal/abnormal . MPV (test code = 9.2 fL 9.5-12.9 L 97144-6) NRBC/100 WBC (test See_Comment [Automat ed code = 4224030387) message] The system which generated this result transmitted reference range : 0.0 - 10.0 /100 WBCs. The refer ence range was not u sed to interpret th is result as normal/abnormal . NRBC x10^3 (test code <0.01 See_Comment [Auto mated = 8979300506) message] The s ystem which generated this result transmitted reference range : 10*3/?L. The reference range was not used to interpret this result as normal/abnormal . GRAN MAT (NEUT) % 75.7 % (test code = 770-8) IMM GRAN % (test code 1.30 % = 4627689486) LYMPH % (test code = 15.0 % 736-9) MONO % (test code = 7.5 % 5905-5) EOS % (test code = 0.3 % 713-8) BASO % (test code = 0.2 % 706-2) GRAN MAT x10^3(ANC) 7.60 10*3/uL 1.88-7.09 H (test code = 9440846566) IMM GRAN x10^3 (test 0.13 10*3/uL 0.00-0.06 H code = 6428882196) LYMPH x10^3 (test code 1.51 10*3/uL 1.32-3.29 = 731-0) MONO x10^3 (test code 0.75 10*3/uL 0.33-0.92 = 742-7) EOS x10^3 (test code = 0.03 10*3/uL 0.03-0.39 711-2) BASO x10^3 (test code <0.03 0.01-0.07 = 704-7) Lab Interpretation Abnormal (test code = 91916-9) [facility] URINALYSIS W/O SPECIFIC [id number] 17:20:00 Test Item Value Reference Range Interpretation [...] code = 3257) n/a Negative - Negative [facility] URINALYSIS W/O SPECIFIC [id number] 19:26:00 Test Item Value Reference Range Interpretation [...] code = 3257) N/A Negative - Negative [facility] URINALYSIS W/O SPECIFIC [id number] 19:37:00 Test Item Value Reference Range Interpretation [...] code = 3257) N/A Negative - Negative [facility] CenterPOCT [facility] W/O SPECIFIC [id number] 17:38:00 Test Item Value Reference Range Interpretation [...] Negative Lab Interpretation (test code = Normal 98098-0) [facility] CenterUS OB [id number] 21:29:56- Limited USG for ?FHT: ?Single live IUP measured 6 6/7 weeks, not consistent with LMP. ?Will date by USG at help center done on 03/14/2020 unless clinically indicated otherwise Sonido Tapia MD ?03/22/2020 ?4:29 PMUnBaylor Scott & White Medical Center – PlanoCOM. METABOLIC PANEL (07357)2019-01-24 02:05:00 Test Item Value Reference Range Interpretation Comments NA (test code = 140 mmol/L 135-145 8006750372) K (test code = 3.6 mmol/L 3.5-5 1175710181) CL (test code = 106 mmol/L 98-108 2631301572) CO2 TOTAL (test code = 25 mmol/L 23-31 0821994542) AGAP (test code = 2-16 0776679498) BUN (test code = 7 mg/dL 7-23 5080721611) GLUCOSE (test code = 88 mg/dL 70-110 8001810046) CREATININE (test code = 0.61 mg/dL 0.5-1.04 1979494543) TOTAL BILI (test code = 0.4 mg/dL 0.1-1.8 1994274187) CALCIUM (test code = 8.8 mg/dL 8.6-10.6 9194947786) T PROTEIN (test code = 7.3 g/dL 6.3-8.2 3639758518) ALBUMIN (test code = 3.8 g/dL 3.5-5 0635459741) ALK PHOS (test code = 205 U/L 34-122 H 2964509419) ALT(SGPT) (test code = 9 U/L 9-51 7259446219) AST(SGOT) (test code = 24 U/L 13-40 7933471195) eGFR Calculation mL/min/1.73m2 (Non-) (test code = 6428542517) eGFR Calculation mL/min/1.73m2 () (test code = 0775344394) FRANTZ (test code = FRANTZ) Association of [...] tests). Lab Interpretation Abnormal (test code = 10723-9) [facility] [id number] 01:57:00 Test Item Value Reference Range Interpretation Comments APPEARANCE (test code Slightly Cloudy Clear A = 9141539182) COLOR (test code = Yellow Yellow 6226857797) PH (test code = 4.8-8.0 9737863407) SP GRAVITY (test code 1.003-1.030 = 0333876666) GLU U QUAL (test code Negative Negative = 4978951944) BLOOD (test code = Large Negative A 7198689587) KETONES (test code = Negative Negative 6455430024) PROTEIN (test code = Negative Negative 2887-8) UROBILIN (test code = 0.2 mg/dL See_Comment [Auto mated 7685337603) message] The system which generated this result transmit hamlet reference range : 0-1.0 mg/dL. Th e reference range was not used to interpret this result as normal/abnormal . BILIRUBIN (test code Negative Negative = 1269063242) NITRITE (test code = Negative Negative 3939261506) LEUK DELICIA (test code Small Negative A = 2196128426) RBC/HPF (test code = See_Comment H [Autom ated 2449513307) message] The system which generated this result transmit hamlet reference range : 0 - 3 HPF. The reference range was not used to interpret this result as normal/abnormal . WBC/HPF (test code = See_Comment H [Autom ated 4296303381) message] The system which generated this result transmit hamlet reference range : 0 - 5 HPF. The reference range was not used to interpret this result as normal/abnormal . BACTERIA (test code = Moderate Negative A 0969143272) SQ EPITH (test code = HPF 8180291089) Lab Interpretation Abnormal (test code = 01843-4) [facility] CenterLactic Acid Whole [id number] 01:45:00 Test Item Value Reference Range Interpretation Comments LACTIC ACID (test code = 1.27 mmol/L 0.5-2.2 3303648843) Lab Interpretation (test code = Normal 56898-6) [facility] CenterCB WITH [id number] 01:43:00 Test Item Value Reference Range Interpretation [...] RDW-SD (test code = 43.8 fL 39-49.9 83737-9) RDW-CV (test code = 13.6 % 12-15.5 788-0) PLT (test code = See_Comment [Automated 777-3) message] The system which generated this result transmit hamlet reference range : 166 - 358 10*3/ ?L. The reference range was not u sed to interpret th is result as normal/abnormal . MPV (test code = 9.2 fL 9.5-12.9 L 12312-1) NRBC/100 WBC (test See_Comment [Automat ed code = 3877186589) message] The system which generated this result transmit hamlet reference range : 0.0 - 10.0 /100 WBCs. The reference range was not used to interpret this result as normal/abnormal . NRBC x10^3 (test code <0.01 See_Comment [Auto mated = 7526880238) message] The system which generated this result transmit hamlet reference range : 10*3/?L. The reference range was not used to interpret this result as normal/abnormal . GRAN MAT (NEUT) % 86.9 % (test code = 770-8) IMM GRAN % (test code 0.90 % = 5287159549) LYMPH % (test code = 6.6 % 736-9) MONO % (test code = 4.8 % 5905-5) EOS % (test code = 0.5 % 713-8) BASO % (test code = 0.3 % 706-2) GRAN MAT x10^3(ANC) 11.51 10*3/uL 1.88-7.09 H (test code = 2566631302) IMM GRAN x10^3 (test 0.12 10*3/uL 0-0.06 H code = 4359074682) LYMPH x10^3 (test code 0.87 10*3/uL 1.32-3.29 L = 731-0) MONO x10^3 (test code 0.63 10*3/uL 0.33-0.92 = 742-7) EOS x10^3 (test code = 0.07 10*3/uL 0.03-0.39 711-2) BASO x10^3 (test code 0.04 10*3/uL 0.01-0.07 = 704-7) Lab Interpretation Abnormal (test code = 91119-0) [facility] WITH [id number] 08:54:00 Test Item Value Reference Range Interpretation [...] RDW-SD (test code = 43.8 fL 39-49.9 13834-9) RDW-CV (test code = 13.6 % 12-15.5 788-0) PLT (test code = See_Comment [Automated 777-3) message] The system which generated this result transmit hamlet reference range : 166 - 358 10*3/ ?L. The reference range was not u sed to interpret th is result as normal/abnormal . MPV (test code = 9.6 fL 9.5-12.9 99873-1) NRBC/100 WBC (test See_Comment [Automat ed code = 7934042543) message] The system which generated this result transmit hamlet reference range : 0.0 - 10.0 /100 WBCs. The reference range was not used to interpret this result as normal/abnormal . NRBC x10^3 (test code <0.01 See_Comment [Auto mated = 8240156441) message] The system which generated this result transmit hamlet reference range : 10*3/?L. The reference range was not used to interpret this result as normal/abnormal . GRAN MAT (NEUT) % 79.0 % (test code = 770-8) IMM GRAN % (test code 0.90 % = 1650337089) LYMPH % (test code = 12.8 % 736-9) MONO % (test code = 6.8 % 5905-5) EOS % (test code = 0.3 % 713-8) BASO % (test code = 0.2 % 706-2) GRAN MAT x10^3(ANC) 12.60 10*3/uL 1.88-7.09 H (test code = 2633539735) IMM GRAN x10^3 (test 0.14 10*3/uL 0-0.06 H code = 5402935629) LYMPH x10^3 (test code 2.04 10*3/uL 1.32-3.29 = 731-0) MONO x10^3 (test code 1.08 10*3/uL 0.33-0.92 H = 742-7) EOS x10^3 (test code = 0.04 10*3/uL 0.03-0.39 711-2) BASO x10^3 (test code 0.03 10*3/uL 0.01-0.07 = 704-7) Lab Interpretation Abnormal (test code = 70070-2) [facility] OR DIEGO HENSON - [id number] 23:47:00 Test Item Value Reference Range Interpretation Comments Lab Interpretation (test code = Normal 75846-0) [id number] 12:21:00 Test Item Value Reference Range Interpretation Comments VENOUS BASE EXCESS, mEq/L CORD (test code = 9548400066) VENOUS PH, CORD (test 7.25-7.45 code = 6728232943) VENOUS PC02, CORD See_Comment [Automate d message] The (test code = system which ge nerated 6077970258) this result tra nsmitted reference range : 27 - 49 mmHg. The refer ence range was not used to interpret this result as normal/abnormal . VENOUS PO2, CORD (test See_Comment [Aut omated message] The code = 0283082492) system [facility] generated this result tra nsmitted reference range : 17 - 41 mmHg. The refer ence range was not used to interpret this result as normal/abnormal . VENOUS BICARBONATE, See_Comment [Automa hamlet message] The CORD (test code = system whi ch generated 5898650320) this result tra nsmitted reference range : 12 - 29 mEq/L. The refe rence range was not used to interpret this result as normal/abnormal . [facility] [id number] 12:19:00 Test Item Value Reference Range Interpretation Comments BASE EXCESS, CORD mEq/L (test code = 2159818105) AC PH, CORD (BEAKER) 7.18-7.38 (test code = 0426887822) PC02, CORD (test code See_Comment [Auto mated message] The = 1812832058) system which g enerated this result transmit hamlet reference range : 32 - 66 mmHg. The refer ence range was not used to interpret this result as normal/abnormal . PO2, CORD (test code See_Comment [Autom ated message] The = 1883923114) system which g enerated this result transmit hamlet reference range : 10 - 30 mmHg. The refer ence range was not used to interpret this result as normal/abnormal . BICARBONATE, CORD See_Comment [Automate d message] The (test code = system which ge nerated this 0123926537) result transmit hamlet reference range : 17 - 27 mEq/L. The refe rence range was not used to interpret this result as normal/abnormal . [facility] Surface [id number] 05:48:00 Test Item Value Reference Range Interpretation Comments HBsAg Semi-Quantitative (test code = 5195-3) [facility] OR [facility] ONLY - HIV TYPE 1 AND 2 ANTIBODY SCREEN WITH [id number] 02:51:00 Test Item Value Reference Range Interpretation Comments Lab Interpretation (test code = Normal 40345-9) [facility] Screen - ONCE [id number] 00:06:40 Test Item Value Reference Range Interpretation Comments ABO & RH (test code O Positive Performe d at [facility] = 20) Laboratory Serv [facility] [address] [place], [place] [id number] Free: [phone] A No. [id number] IAT (test code = Negative Performed a t [facility] 1185) Laboratory Serv [facility] [address] [place], [place] [id number] Free: [phone] A No. [id number] [facility]CBC WITH [id number] 21:58:00 Test Item Value Reference Range Interpretation [...] RDW-SD (test code = 43.5 fL 39-49.9 39953-7) RDW-CV (test code = 13.4 % 12-15.5 788-0) PLT (test code = See_Comment [Automated 777-3) message] The sy stem which generated this result transmitted reference range : 166 - 358 10*3/ ?L. The reference r basil was not used to interpret this result as normal/abnormal . MPV (test code = 10.1 fL 9.5-12.9 29758-5) NRBC/100 WBC (test See_Comment [Automat ed code = 2074673623) message] The system which generated this result transmitted reference range : 0.0 - 10.0 /100 WBCs. The refer ence range was not u sed to interpret th is result as normal/abnormal . NRBC x10^3 (test code <0.01 See_Comment [Auto mated = 3320174332) message] The s ystem which generated this result transmitted reference range : 10*3/?L. The reference range was not used to interpret this result as normal/abnormal . GRAN MAT (NEUT) % 80.3 % (test code = 770-8) IMM GRAN % (test code 0.60 % = 9727630130) LYMPH % (test code = 13.8 % 736-9) MONO % (test code = 4.8 % 5905-5) EOS % (test code = 0.3 % 713-8) BASO % (test code = 0.2 % 706-2) GRAN MAT x10^3(ANC) 7.05 10*3/uL 1.88-7.09 (test code = 0140037834) IMM GRAN x10^3 (test 0.05 10*3/uL 0-0.06 code = 3434459789) LYMPH x10^3 (test code 1.21 10*3/uL 1.32-3.29 L = 731-0) MONO x10^3 (test code 0.42 10*3/uL 0.33-0.92 = 742-7) EOS x10^3 (test code = 0.03 10*3/uL 0.03-0.39 711-2) BASO x10^3 (test code <0.03 0.01-0.07 = 704-7) Lab Interpretation Abnormal (test code = 84565-4) [facility] URINALYSIS W/O SPECIFIC [id number] 17:12:00 Test Item Value Reference Range Interpretation [...] Negative Lab Interpretation (test code = Normal 42717-6) [facility] WITH [id number] 17:44:00 Test Item Value Reference Range Interpretation [...] RDW-SD (test code = 40.8 fL 39-49.9 35690-5) RDW-CV (test code = 12.3 % 12-15.5 788-0) PLT (test code = See_Comment [Automated 777-3) message] The sy stem which generated this result transmitted reference range : 166 - 358 10*3/ ?L. The reference r basil was not used to interpret this result as normal/abnormal . MPV (test code = 9.3 fL 9.5-12.9 L 19272-8) NRBC/100 WBC (test See_Comment [Automat ed code = 8450098753) message] The system which generated this result transmitted reference range : 0.0 - 10.0 /100 WBCs. The refer ence range was not u sed to interpret th is result as normal/abnormal . NRBC x10^3 (test code <0.01 See_Comment [Auto mated = 0715132307) message] The s ystem which generated this result transmitted reference range : 10*3/?L. The reference range was not used to interpret this result as normal/abnormal . GRAN MAT (NEUT) % 75.0 % (test code = 770-8) IMM GRAN % (test code 0.60 % = 2104861557) LYMPH % (test code = 14.8 % 736-9) MONO % (test code = 9.0 % 5905-5) EOS % (test code = 0.4 % 713-8) BASO % (test code = 0.2 % 706-2) GRAN MAT x10^3(ANC) 8.16 10*3/uL 1.88-7.09 H (test code = 6733954704) IMM GRAN x10^3 (test 0.07 10*3/uL 0-0.06 H code = 2082633765) LYMPH x10^3 (test code 1.61 10*3/uL 1.32-3.29 = 731-0) MONO x10^3 (test code 0.98 10*3/uL 0.33-0.92 H = 742-7) EOS x10^3 (test code = 0.04 10*3/uL 0.03-0.39 711-2) BASO x10^3 (test code <0.03 0.01-0.07 = 704-7) Lab Interpretation Abnormal (test code = 61489-0) [facility] URINALYSIS W/O SPECIFIC [id number] 16:23:00 Test Item Value Reference Range Interpretation [...] code = 3257) N/A Negative - Negative [facility]/O SPECIFIC [id number] 16:23:00 Test Item Value Reference Range Interpretation [...] code = 3257) N/A Negative - Negative [facility]"
[2023-03-30] MEDS ORDERED: MORPHINE 4 MG/ML SYR ONE (04:03)
[2023-03-30] MEDS ORDERED: ONDANSETRON 4 MG/2 ML VIAL ONE (04:03)
[2023-03-30] MEDS ORDERED: KETAMINE HCL IN 0.9 % NACL 50 MG/5 ML SYRINGE IV ONE (04:29)
[2023-03-30] MEDS ORDERED: NA CHLORIDE 0.9% 1,000 ML ONE (05:30)
--- NOTE | 2023-03-30 07:27 | EDPHYS ---
Physician Documentation [facility] Name: Mari Hernandez Age: 22 yrs Sex: Female : 2000 Arrival Date: 03/30/2023 Time: 03:17 Bed 2 Private MD: ED Physician Rinku Bahtt HPI: 03/30 03:37 This 22 yrs old Female presents to ER via Ambulatory with complaints of Wrist rt Injury - W/DEFORMITY. 03:37 Patient presents to the ED with a trip and fall onto the right hand occurring just rt prior to arrival. She sustained an injury to the right wrist with deformity. Pain is aching nature, nonradiating. She denies other acute complaints or other injuries. Denies other aggravating or alleviating factors.. 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 Last tetanus immunization: up to date. - Social history:: Smoking status: Patient denies any tobacco usage or history of. Patient uses alcohol, only on a social basis. - Family history:: not pertinent. ROS: 03:37 Constitutional: Negative for fever, chills, and weight loss, Cardiovascular: Negative rt for chest pain, palpitations, and edema, Respiratory: Negative for shortness of breath, cough, wheezing, and pleuritic chest pain, Abdomen/GI: Negative for abdominal pain, nausea, vomiting, diarrhea, and constipation, Skin: Negative for injury, rash, and discoloration, Neuro: Negative for headache, weakness, numbness, tingling, and seizure, Psych: Negative for depression, anxiety, suicide ideation, homicidal ideation, and hallucinations, 03:37 MS/extremity: Positive for injury or acute deformity, deformity, pain, Exam: 03:37 Musculoskeletal/extremity: Deformity with tenderness to the right wrist, good capillary rt refill, full range of motion of the fingers, no other swelling, deformity, tenderness palpation.. 03:46 Constitutional: This is a well developed, well nourished patient who is awake, alert, rt and in no acute distress. Head/Face: Normocephalic, atraumatic. Chest/axilla: Normal chest wall appearance and motion. Nontender with no deformity. No lesions are appreciated. Cardiovascular: Regular rate and rhythm with a normal S1 and S2. No gallops, murmurs, or rubs. Normal PMI, no JVD. No pulse deficits. Respiratory: Lungs have equal breath sounds bilaterally, clear to auscultation and percussion. No rales, rhonchi or wheezes noted. No increased work of breathing, no retractions or nasal flaring. Abdomen/GI: Soft, non-tender, with normal bowel sounds. No distension or tympany. No guarding or rebound. No evidence of tenderness throughout. Skin: Warm, dry with normal turgor. Normal color with no rashes, no lesions, and no evidence of cellulitis. Neuro: Awake and alert, GCS 15, oriented to person, place, time, and situation. Cranial nerves II-XII grossly intact. Motor strength 5/5 in all extremities. Sensory grossly intact. Cerebellar exam normal. Normal gait. Psych: Awake, alert, with orientation to person, place and time. Behavior, mood, and affect are within normal limits. Vital Signs: 03:30 BP 117 / 92; Pulse 96; Resp 20; Temp 98.7; Pulse Ox 100% ; Weight 63.5 kg; Height 5 ft. kb3 2 in. ; Pain 7/10; 03:30 BP 124 / 87; Pulse 96; Resp 14 S; Pulse Ox 98% on R/A; km8 03:45 BP 142 / 63; Pulse 112; Resp 16 S; Pulse Ox 98% on R/A; km8 05:00 BP 93 / 63; Pulse 87; Resp 18; Pulse Ox 100% on R/A; km8 07:20 BP 101 / 64; Pulse 85; Resp 14 S; Pulse Ox 100% on R/A; aa5 07:40 BP 103 / 74; Pulse 84; Resp 16 S; Temp 97.3(TE); Pulse Ox 100% on R/A; aa5 03:30 Body Mass Index 25.61 (63.50 kg, 157.48 cm) kb3 03:30 Pain Scale: Adult kb3 Procedures: 05:37 Reduction: of the right wrist, using traction, Immobilized with Sugar-tong splint. rt Patient tolerated well. Post reduction film - reveals improved alignment. Moderate sedation: Pre-procedure assessment: the patient has been NPO an unknown amount of time prior to arrival, ASA physical classification: I - healthy, no underlying organic disease, Airway assessment: able to hyperextend neck, able to maintain airway, can open mouth without difficulty, Mallampati classification of tongue size: I - faucial pillars, soft palate, and uvula can be fully visualized, Monitoring during procedure: surveillance monitor, continuous pulse oximetry, nurse at bedside at all times, Medications employed: Ketamine, 65 mg(s), Post-procedure assessment: the patient is not sedated, Oakley sedation score: 1 - patient anxious or agitated or both, Respiratory status: even and unlabored, a reversal agent was not used. MDM: 03:25 Patient medically screened. rt 07:15 Differential diagnosis: Fracture, dislocation. Data reviewed: vital signs, nurses rt notes. I considered the following discharge prescriptions or medication management in the emergency department Medications were administered in the Emergency Department. See MAR. Independent interpretation of the following test(s) in the Emergency Department X-Ray: My interpretation is Distal radius fracture seen on interpretation of x-ray images. Test considered but Not performed: CT: No head injury, CT scan of the head not indicated. Counseling: I had a detailed discussion with the patient and/or guardian regarding the historical points, exam findings, and any diagnostic results supporting the discharge/admit diagnosis, radiology results, the need for outpatient follow up. Response to treatment: the patient's symptoms have markedly improved after treatment. 07:27 ED course: Patient signed out to me with pending reevaluation after fracture reduction. ec2 Patient is awake and alert and ambulatory without issue. Patient approved for discharge. Return precautions given.. 03/30 03:30 Order name: Wrist Right 3 View XRAY rt 03/30 05:37 Order name: Wrist Right 2 View XRAY rt Administered Medications: 03:55 Drug: morphine IVP or IV 4 mg IVP once over 4 mins Route: IVP; Infused Over: 4 mins; km8 Site: left wrist; 04:15 Follow up: Response: No adverse reaction; Pain is decreased km8 03:55 Drug: Ondansetron IVP 4 mg IVP once; over 2 minutes Route: IVP; Site: left wrist; 8 04:15 Follow up: Response: No adverse reaction [facility] 05:25 Drug: NS 0.9% IV 1000 ml IV at 1 bolus Per protocol; 1000 mL bolus Route: IV; Rate: 1 km8 bolus; Site: left wrist; 06:53 Follow up: IV Status: Completed infusion; IV Intake: 1000ml 05:29 Drug: Ketamine IVP 1 mg/kg IVP once {Note: Dr. Valero at bedside.} Route: IVP; 8 Site: left wrist; 06:52 Follow up: Response: No adverse reaction 8 Disposition Summary: 03/30/23 07:27 Discharge Ordered Notes: Location: Home ec2 Problem: new ec2 Symptoms: have improved ec2 Condition: Stable ec2 Diagnosis - Fracture of right distal radius ec2 Followup: rt - With: Jerzy Gonzalez MD - When: 5 - 6 days - Reason: Continuance of care Discharge Instructions: - Discharge Summary Sheet rt - Wrist Fracture Treated With Immobilization rt - Moderate Conscious Sedation, Adult, Care After rt Forms: - Medication Reconciliation Form ec2 - Thank You Letter ec2 - Antibiotic Education ec2 - Prescription Opioid Use ec2 - Patient Portal Instructions ec2 - Leadership Thank You Letter ec2 Signatures: Dispatcher [employer] Lety Hearn, RN RN lg3 Devika Johnson RN RN kb3 Wilbert Valero MD MD rt Rinku Bhatt MD MD ec2 Eugenia Hanley RN RN km8 Corrections: (The following items were deleted from the chart) 03:36 03:35 PSHx: None; kb3 kb3 06:32 05:37 Reduction: of the right wrist, using traction, Immobilized with Sugar-tong rt splint. Patient tolerated well. rt
--- NOTE | 2023-03-30 07:27 | ER ---
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 Obvious deformity noted. Coronavirus screen: Vaccine status: Patient reports being unvaccinated. Client denies travel out of the [place] in the last 14 days. Ebola Screen: Patient negative for fever greater than or equal to 101.5 degrees Fahrenheit, and additional compatible Ebola Virus Disease symptoms Patient denies exposure to infectious person. Patient denies travel to an Ebola-affected area in the 21 days before illness onset. Initial Sepsis Screen: Does the patient meet any 2 criteria? No. Patient's initial sepsis screen is negative. Does the patient have a suspected source of infection? No. Patient's initial sepsis screen is negative. Risk Assessment: Do you want to hurt yourself or someone else? Patient reports no desire to harm self or others. Onset of symptoms was March 30, 2023 at 03:00. 03:30 Method Of Arrival: Ambulatory kb3 03:30 Acuity: CHINEDU 2 kb3 Triage Assessment: 03:35 General: Appears in no apparent distress. uncomfortable, Behavior is calm, cooperative. kb3 Pain: Complains of pain in dorsal aspect of right forearm and right wrist Pain does not radiate. Pain currently is 7 out of 10 on a pain scale. Musculoskeletal: Bony deformity noted of dorsal aspect of right forearm and right wrist. Injury Description: Deformity sustained to dorsal aspect of right forearm and right wrist is displaced. 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 Last tetanus immunization: up to date. - Social history:: Smoking status: Patient denies any tobacco usage or history of. Patient uses alcohol, only on a social basis. - Family history:: not pertinent. Screenin:45 [facility] ED Fall Risk Assessment (Adult) History of falling in the last 3 months, km8 including since admission Yes- single mechanical fall (1 pt) Confusion or Disorientation No (0 pts) Intoxicated or Sedated No (0 pts) Impaired Gait No (0 pts) Mobility Assist Device Used No (0 pt) Altered Elimination No (0 pt) Score/Fall Risk Level 0 - 2 = Low Risk Oriented to surroundings, Maintained a safe environment, Educated pt \T\ family on fall prevention, incl call for assistance when getting out of bed, Assessed \T\ reinforced patient's understanding of fall precautions. Abuse screen: Denies threats or abuse. Denies injuries from another. Nutritional screening: No deficits noted. Tuberculosis screening: No symptoms or risk factors identified. Assessment: 03:45 General: Appears in no apparent distress. uncomfortable, Behavior is calm, cooperative, km8 appropriate for age. Pain: Complains of pain in right wrist Pain currently is 10 out of 10 on a pain scale. 03:45 Neuro: Level of Consciousness is awake, alert, obeys commands, Oriented to person, km8 place, time, situation. Cardiovascular: Denies chest pain, shortness of breath, Capillary refill < 3 seconds Patient's skin is warm and dry. Respiratory: Airway is patent Respiratory effort is even, unlabored, Respiratory pattern is regular, symmetrical. GI: No deficits noted. No signs and/or symptoms were reported involving the gastrointestinal system. : No deficits noted. No signs and/or symptoms were reported regarding the genitourinary system. EENT: No deficits noted. No signs and/or symptoms were reported regarding the EENT system. Derm: No deficits noted. No signs and/or symptoms reported regarding the dermatologic system. Skin is intact, is healthy with good turgor, Skin is dry, Skin is pink, warm \T\ dry. normal, Skin temperature is warm. Musculoskeletal: right wrist possible fracture. 05:19 Reassessment: Patient appears in no apparent distress at this time. No changes from km8 previously documented assessment. Patient and/or family updated on plan of care and expected duration. Pain level reassessed. Patient is alert, oriented x 3, equal unlabored respirations, skin warm/dry/pink. 06:53 General: see conscious sedation paperwork for vital signs starting at 0527. km8 07:29 Reassessment: Patient is alert, oriented x 3, equal unlabored respirations, skin aa5 warm/dry/pink. Pt's friend called for ride home as requested by pt. . 07:55 Reassessment: Patient is alert, oriented x 3, equal unlabored respirations, skin aa5 warm/dry/pink. Vital Signs: 03:30 BP 117 / 92; Pulse 96; Resp 20; Temp 98.7; Pulse Ox 100% ; Weight 63.5 kg; Height 5 ft. kb3 2 in. ; Pain 7/10; 03:30 BP 124 / 87; Pulse 96; Resp 14 S; Pulse Ox 98% on R/A; km8 03:45 BP 142 / 63; Pulse 112; Resp 16 S; Pulse Ox 98% on R/A; km8 05:00 BP 93 / 63; Pulse 87; Resp 18; Pulse Ox 100% on R/A; km8 07:20 BP 101 / 64; Pulse 85; Resp 14 S; Pulse Ox 100% on R/A; aa5 07:40 BP 103 / 74; Pulse 84; Resp 16 S; Temp 97.3(TE); Pulse Ox 100% on R/A; aa5 03:30 Body Mass Index 25.61 (63.50 kg, 157.48 cm) kb3 03:30 Pain Scale: Adult kb3 ED Course: 03:20 Patient arrived in ED. kj1 03:21 Wilbert Valero MD is Attending Physician. rt 03:33 Eugenia Hanley, PATRICIA is Primary Nurse. km8 03:35 Triage completed. kb3 03:35 Arm band placed on left wrist. Patient placed in an exam room, on a stretcher. kb3 03:45 Patient has correct armband on for positive identification. Bed in low position. Call km8 light in reach. Side rails up X2. Client placed on continuous cardiac and pulse oximetry monitoring. NIBP monitoring applied. ladle filler on. Door closed. Noise minimized. Pillow given. 03:45 Patient maintains SpO2 saturation greater than 95% on room air. km8 03:46 Inserted saline lock: 22 gauge in left wrist, using aseptic technique. km8 04:12 Wrist Right 3 View XRAY In Process Unspecified. EDMS 05:12 Provided Education on: Conscious Sedation. km8 05:12 Consent for conscious sedation explained by staff, signed by patient. km8 05:27 Assist provider with reduction of right wrist using manipulation, Set up for procedure. km8 Performed by Wilbert Valero MD Patient tolerated well. 05:59 Wrist Right 2 View XRAY In Process Unspecified. EDMS 07:27 Jerzy Gonzalez MD is Referral Physician. ec2 07:28 Attending Physician role handed off by Wilbert Valero MD ec2 07:28 Rinku Bhatt MD is Attending Physician. ec2 07:50 IV discontinued, intact, bleeding controlled, No redness/swelling at site. Pressure aa5 dressing applied. Administered Medications: 03:55 Drug: morphine IVP or IV 4 mg IVP once over 4 mins Route: IVP; Infused Over: 4 mins; km8 Site: left wrist; 04:15 Follow up: Response: No adverse reaction; Pain is decreased km8 03:55 Drug: Ondansetron IVP 4 mg IVP once; over 2 minutes Route: IVP; Site: left wrist; km8 04:15 Follow up: Response: No adverse reaction 8 05:25 Drug: NS 0.9% IV 1000 ml IV at 1 bolus Per protocol; 1000 mL bolus Route: IV; Rate: 1 km8 bolus; Site: left wrist; 06:53 Follow up: IV Status: Completed infusion; IV Intake: 1000ml 8 05:29 Drug: Ketamine IVP 1 mg/kg IVP once {Note: Dr. Valero at bedside.} Route: IVP; km8 Site: left wrist; 06:52 Follow up: Response: No adverse reaction km8 Medication: 06:57 VIS not applicable for this client. km8 Intake: 06:53 IV: 1000ml; Total: 1000ml. km8 Outcome: 07:27 Discharge ordered by . ec2 07:55 Discharged to home via wheelchair, with friend, aa5 07:55 Condition: stable 07:55 Discharge instructions given to patient, Instructed on discharge instructions, follow up and referral plans. medication usage, Demonstrated understanding of instructions, follow-up care, medications, Prescriptions given X 1, Written prescription for Tylenol #[address] Valero. 07:59 Patient left the ED. aa5 Signatures: Dispatcher [employer] EDAL Brush, Moon, RN RN aa5 Doreen Becker1 Devika Johnson, RN RN kb3 Wilbert Valero MD MD rt Rinku Bhatt MD MD ec2 Eugenia Hanley RN RN km8 Corrections: (The following items were deleted from the chart) 03:36 03:35 PSHx: None; kb3 kb3
[2023-03-30 08:09] VITALS: TEMP 98.7
[2023-03-30 08:29] VITALS: BP 93/63; O2SAT 100
--- NOTE | 2023-03-31 11:08 | RAD REPORT ---
EXAM DESCRIPTION: RAD - Wrist Right 2 View - 03/30/2023 5:57 am CLINICAL HISTORY: Post reduction Wrist Right 2 View COMPARISON: None. FINDINGS: 2 views of the right wrist. Post reduction imaging demonstrates decreased angulation. Pers istent mild posterior displacement of the distal radial articular surface. Redemonstrated ulnar stylo id fracture. Splint material overlies the wrist. Normal osseous mineralization. IMPRESSION: Post reduction imaging demonstrates decreased angulation with persistent mild posterior displacement of the distal radial articular surface. Electronically signed by: Heath Sanz 03/30/2023 6:09 AM CDT Due to temporary technical issues with the PACS/Fluency reporting system, reports are being signed by the in house radiologists without review as a courtesy to insure prompt reporting. The interpreting radiologist is fully responsible for the content of the report.
--- NOTE | 2023-03-31 11:10 | RAD REPORT ---
EXAM DESCRIPTION: RAD - Wrist Right 3 View - 03/30/2023 4:10 am CLINICAL HISTORY: DEFORMITY Wrist Right 3 View COMPARISON: None. FINDINGS: 3 views of the right wrist. Acute impacted fracture of the distal right radial metaphysis with approximately 45 degrees dorsal angulation of the distal radial articular surface. Nondisplaced ulnar styloid fracture. Soft tissue edema. Normal osseous mineralization. IMPRESSION Acute impacted fracture of the distal right radial metaphysis with approximately 45 degre es dorsal angulation of the distal radial articular surface. Electronically signed by: Heath Sanz 03/30/2023 4:40 AM CDT Due to temporary technical issues with the PACS/Fluency reporting system, reports are being signed by the in house radiologists without review as a courtesy to insure prompt reporting. The interpreting radiologist is fully responsible for the content of the report.
== END 2023-03-30 07:59 | disposition home or self-care (01) ==
LOC: ER 03:17
PROC: 0PSH35Z Reposition Right Radius with External Fixation Device, Percutaneous Approach (ICD-10-PCS; principal; 2023-03-30)
DX: S52.501A Unspecified fracture of the lower end of right radius, initial encounter for closed fracture (principal)
CPT/HCPCS: 96361; 73110; 73100; 96375; 96374; 99285; 25605; J2405; J7030